=== PATIENT | female | born 1960 | race Caucasian/White ===

== ENCOUNTER 2018-05-22 20:15 | Observation (INO) | payer OTHER ==
[2018-05-22] MEDS ORDERED: diphenhydrAMINE 50 MG/ML 1 ML VIAL IVP STA (20:52)
[2018-05-22] MEDS ORDERED: LORazepam 2 MG/ML INJ IV STA (21:16)
[2018-05-22] MEDS ORDERED: Acetaminophen-Codeine 300-30mg TAB PO STA (21:16)
[2018-05-22 21:19] LABS: Basophils # (A) 0.1 k/uL (0-0.2); Basophils % (A) 1 %; Eosinophils # (A) 0.2 k/uL (0-0.7); Eosinophils % (A) 2 %; HGB 13.8 gm/dL (11.4-16.0); Lymphocytes # (A) 2.4 k/uL (1.0-4.8); Lymphocytes % (A) 30 %; MCH 31.6 pg (25.0-35.0); MCHC 33.7 g/dL (31.0-37.0); MCV 93.7 fL (80.0-100.0); Mean Platelet Volume 6.9; Monocytes # (A) 0.5 k/uL (0-1.0); Monocytes % (A) 6 %; Neutrophils # (A) 4.6 k/uL (1.3-7.7); Neutrophils % (A) 59 %; Platelet Count 255 k/uL (150-450); RBC 4.38 m/uL (3.80-5.40); RDW 12.8 % (11.5-15.5); WBC 7.8 k/uL (3.8-10.6)
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
[2018-05-22 21:32] LABS: Albumin 4.3 g/dL (3.5-5.0); Calcium 9.6 mg/dL (8.4-10.2); Potassium 3.8 mmol/L (3.5-5.1); Total Bilirubin 0.5 mg/dL (0.2-1.3); Total Protein 6.8 g/dL (6.3-8.2)
[2018-05-22 21:36] LABS: Partial Thromboplastin Time 24.6 sec (22.0-30.0); Prothrombin Time 9.8 sec (9.0-12.0)
[2018-05-22 21:49] LABS: Creatine Kinase MB 5.8 ng/mL (0.0-2.4)
[2018-05-22 22:11] LABS: Appearance,Urine Clear (Clear); Bilirubin,Urine Negative (Negative); Blood,Urine Negative (Negative); Color,Urine Yellow; Glucose,Urine (UA) Negative (Negative); Ketones,Urine 2+ (Negative); Leukocyte Esterase,Urine Negative (Negative); Nitrite,Urine Negative (Negative); PH, Urine 5.5 (5.0-8.0); Protein,Urine Trace (Negative); Specific Gravity,Urine 1.025 (1.001-1.035)
[2018-05-22 22:22] LABS: Amphetamine Screen,Urine Not Detected (NotDetected); Barbiturate Screen,Urine Not Detected (NotDetected); Benzodiazepines Screen,Urine Detected (NotDetected); Cocaine Screen,Urine Not Detected (NotDetected); Methadone Screen, Urine Not Detected (NotDetected); Opiate Screen,Urine Not Detected (NotDetected); Oxycodone Screen, Urine Not Detected (NotDetected); Phencyclidine Screen,Urine Not Detected (NotDetected); Tricyclic Antidepressant,Urine Not Detected (NotDetected); Urn Cannabinoid Scrn Detected (NotDetected)
--- NOTE | 2018-05-22 22:28 | CT ---
EXAMINATION TYPE: CT brain wo con DATE OF EXAM: 05/22/2018 COMPARISON: None HISTORY: Anxiety. Headache CT DLP: 1005.9 mGycm Automated exposure control for dose reduction was used. FINDINGS: Ventricles of normal size. There is no mass effect nor midline shift. There is no sign of intracrania l hemorrhage. The calvarium is intact. IMPRESSION: NEGATIVE CT SCAN OF THE BRAIN.
[2018-05-23] MEDS ORDERED: LORazepam 2 MG/ML INJ IV PRN (04:35)
[2018-05-23 09:59] LABS: Creatine Kinase 602 U/L (30-135)
[2018-05-23 10:12] LABS: Troponin I <0.012 ng/mL (0.000-0.034)
[2018-05-23 10:15] LABS: Creatine Kinase MB 4.4 ng/mL (0.0-2.4)
[2018-05-23] MEDS: diphenhydrAMINE 50 MG/ML 1 ML VIAL IVP PRN ×2 (12:09→18:12)
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
--- NOTE | 2018-05-23 12:40 | ECHOF ---
Referral Reason:sob, dizzy MEASUREMENTS -------- HEIGHT: 157.5 cm WEIGHT: 68.0 kg BP: 115/0 RVIDd: 3.0 cm (< 3.3) IVSd: 1.1 cm (0.6 - 1.1) LVIDd: 4.0 cm (3.9 - 5.3) LVPWd: 1.2 cm (0.6 - 1.1) IVSs: 1.3 cm LVIDs: 3.4 cm LVPWs: 0.9 cm LA Diam: 2.8 cm (2.7 - 3.8) LAESV Index (A-L): 25.68 ml/m Ao Diam: 2.7 cm (2.0 - 3.7) AV Cusp: 1.9 cm (1.5 - 2.6) LA Diam: 2.8 cm (2.7 - 3.8) MV EXCURSION: 21.171 mm (> 18.000) MV EF SLOPE: 75 mm/s (70 - 150) EPSS: 0.3 cm MV E Adebayo: 0.61 m/s MV DecT: 266 ms MV A Adebayo: 0.53 m/s MV E/A Ratio: 1.14 RAP: 5.00 mmHg RVSP: 10.99 mmHg FINDINGS -------- Sinus rhythm. This was a technically good study. LV size, wall thickness and systolic function are normal, with an EF greater than 55%. The left sowmya tricular size is normal. The right ventricle is normal in size. The left atrial size is normal. The right atrial size is normal. The aortic valve is trileaflet, and appears structurally normal. No aortic stenosis or regurgitation. The mitral valve is normal. There is trace to mild mitral regurgitation. Trace tricuspid regurgitation present. There is no evidence of pulmonary hypertension. The right ventricular systolic pressure, as measured by Doppler, is 10.99mmHg. There is no pulmonic regurgitation present. The aortic root size is normal. There is no pericardial effusion. CONCLUSIONS -------- 1. Sinus rhythm. 2. LV size, wall thickness and systolic function are normal, with an EF greater than 55%. 3. The left ventricular size is normal. 4. The left atrial size is normal. 5. The aortic valve is trileaflet, and appears structurally normal. No aortic stenosis or regurgitati on. 6. There is trace to mild mitral regurgitation. 7. Trace tricuspid regurgitation present. 8. There is no evidence of pulmonary hypertension. 9. There is no pulmonic regurgitation present. 10. The aortic root size is normal. 11. There is no pericardial effusion. REELING AND TUBING MACHINE OPERATOR: Celina Ellis RDCS
[2018-05-23] MEDS ORDERED: ACETAMINOPHEN TAB 325 MG TAB PO PRN (16:23)
[2018-05-23] MEDS ORDERED: SODIUM CHLORIDE 0.9% 500 ML IV ONE (16:23)
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
[2018-05-23] MEDS: PERMETHRIN 1% CREME RINSE 59 ML LIQUID TOPICAL ONE (18:03)
[2018-05-23] MEDS: ALPRAZolam 0.25 MG TAB PO PRN (18:12)
[2018-05-23] MEDS: SODIUM CHLORIDE 0.9% 1,000 ML IV SCH (18:30)
[2018-05-23] MEDS ORDERED: ALBUTEROL NEBULIZED 2.5 MG/3 ML INHALATION PRN (19:01)
[2018-05-23] MEDS: FAMOTIDINE 20 MG/2 ML VIAL IV SCH (20:30)
[2018-05-23] MEDS: GABAPENTIN 300 MG CAP PO SCH (21:23)
--- NOTE | 2018-05-23 21:31 | XR ---
PROCEDURE: XR shoulder complete LT 3V DATE AND TIME: 05/23/2018 5:40 PM CLINICAL INDICATION: [facility] left shoulder pain after injury TECHNIQUE: Department protocol. 3V COMPARISON: None FINDINGS: There is no fracture or malalignment. The soft tissues are unremarkable. IMPRESSION: NO ACUTE PROCESS.
[2018-05-24] MEDS: ALPRAZolam 0.25 MG TAB PO PRN ×2 (01:04→17:26)
[2018-05-24] MEDS: diphenhydrAMINE 50 MG/ML 1 ML VIAL IVP PRN ×3 (01:04→17:26)
[2018-05-24] MEDS: SODIUM CHLORIDE 0.9% 1,000 ML IV SCH ×2 (01:17→20:01)
[2018-05-24 07:45] LABS: Basophils # (A) 0.1 k/uL (0-0.2); Basophils % (A) 1 %; Eosinophils # (A) 0.4 k/uL (0-0.7); Eosinophils % (A) 6 %; HCT 36.2 % (34.0-46.0); HGB 11.9 gm/dL (11.4-16.0); Lymphocytes # (A) 2.9 k/uL (1.0-4.8); Lymphocytes % (A) 47 %; MCH 31.6 pg (25.0-35.0); MCHC 32.8 g/dL (31.0-37.0); MCV 96.5 fL (80.0-100.0); Mean Platelet Volume 7.4; Monocytes # (A) 0.5 k/uL (0-1.0); Monocytes % (A) 7 %; Neutrophils # (A) 2.2 k/uL (1.3-7.7); Neutrophils % (A) 36 %; Platelet Count 233 k/uL (150-450); RBC 3.75 m/uL (3.80-5.40); RDW 12.8 % (11.5-15.5); WBC 6.2 k/uL (3.8-10.6)
[2018-05-24 08:08] LABS: Calcium 8.6 mg/dL (8.4-10.2); Potassium 4.3 mmol/L (3.5-5.1)
[2018-05-24] MEDS: FAMOTIDINE 20 MG/2 ML VIAL IV SCH (09:00)
[2018-05-24] MEDS: GABAPENTIN 300 MG CAP PO SCH ×3 (09:00→20:54)
[2018-05-24] MEDS: FAMOTIDINE 20 MG TAB PO SCH (20:00)
[2018-05-24] MEDS: PERMETHRIN 1% CREME RINSE 59 ML LIQUID TOPICAL ONE (20:01)
[2018-05-25] MEDS: SODIUM CHLORIDE 0.9% 1,000 ML IV SCH ×2 (00:01→12:23)
[2018-05-25] MEDS: diphenhydrAMINE 50 MG/ML 1 ML VIAL IVP PRN ×2 (00:07→07:56)
[2018-05-25] MEDS: ALPRAZolam 0.25 MG TAB PO PRN ×2 (00:07→07:52)
[2018-05-25 07:15] LABS: Basophils # (A) 0.1 k/uL (0-0.2); Basophils % (A) 1 %; Eosinophils # (A) 0.5 k/uL (0-0.7); Eosinophils % (A) 6 %; HCT 45.6 % (34.0-46.0); HGB 14.2 gm/dL (11.4-16.0); Lymphocytes # (A) 3.2 k/uL (1.0-4.8); Lymphocytes % (A) 41 %; MCH 30.2 pg (25.0-35.0); MCHC 31.2 g/dL (31.0-37.0); MCV 96.8 fL (80.0-100.0); Mean Platelet Volume 7.3; Monocytes # (A) 0.5 k/uL (0-1.0); Monocytes % (A) 6 %; Neutrophils # (A) 3.4 k/uL (1.3-7.7); Neutrophils % (A) 44 %; Platelet Count 280 k/uL (150-450); RBC 4.71 m/uL (3.80-5.40); WBC 7.7 k/uL (3.8-10.6)
[2018-05-25 07:31] LABS: Calcium 9.9 mg/dL (8.4-10.2); Potassium 4.8 mmol/L (3.5-5.1)
[2018-05-25] MEDS: GABAPENTIN 300 MG CAP PO SCH (07:52)
[2018-05-25] MEDS: FAMOTIDINE 20 MG TAB PO SCH (07:52)
[2018-05-25 16:06] VITALS: BP 138/77; PULSE 58; RESP 16; TEMP 97.6
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
== END 2018-05-25 16:45 | disposition home or self-care (01) ==
LOC: EC 20:15 → 3OBS 23:29
PROVIDERS: ADMIT Hospitalist; ATTEND Hospitalist
DX: R55 Syncope and collapse (principal); R79.89 Other specified abnormal findings of blood chemistry; M79.7 Fibromyalgia; K21.9 Gastro-esophageal reflux disease without esophagitis; M25.512 Pain in left shoulder; R51 Headache; E86.0 Dehydration; R11.10 Vomiting, unspecified; R07.89 Other chest pain; F12.10 Cannabis abuse, uncomplicated; R29.6 Repeated falls; F13.10 Sedative, hypnotic or anxiolytic abuse, uncomplicated; R21 Rash and other nonspecific skin eruption; R42 Dizziness and giddiness; R06.02 Shortness of breath; M19.90 Unspecified osteoarthritis, unspecified site; Z87.01 Personal history of pneumonia (recurrent); F43.10 Post-traumatic stress disorder, unspecified; F41.0 Panic disorder [episodic paroxysmal anxiety]; F32.9 Major depressive disorder, single episode, unspecified; G62.9 Polyneuropathy, unspecified; M54.41 Lumbago with sciatica, right side; M65.30 Trigger finger, unspecified finger; F17.200 Nicotine dependence, unspecified, uncomplicated; Z88.0 Allergy status to penicillin; Z91.030 Bee allergy status; E66.9 Obesity, unspecified; Z68.27 Body mass index [BMI] 27.0-27.9, adult; Y04.2XXA Assault by strike against or bumped into by another person, initial encounter; Z79.82 Long term (current) use of aspirin; Z79.899 Other long term (current) drug therapy
CPT/HCPCS: 99285 ×2; 96374 ×2; 96375 ×3; 96376 ×3; 36415; 94640; 93005; 93306; 97162; 97165; 85379; 80053; 80048 ×2; 82550 ×2; 82553 ×2; 84484 ×2; 85025 ×3; 85610; 85730; 81003; 80306; 73030; 70450; G0378 ×4; J2060 ×2; J1200 ×4

== ENCOUNTER 2018-05-26 18:26 | Emergency (ER) | payer OTHER ==
[2018-05-26 18:35] VITALS: RESP 18
[2018-05-26] MEDS ORDERED: KETOROLAC 30 MG/ML 1 ML VIAL IVP STA (19:15)
[2018-05-26] MEDS ORDERED: diphenhydrAMINE 50 MG/ML 1 ML VIAL IVP STA (19:15)
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
[2018-05-26 20:36] VITALS: BP 114/63; PULSE 65; TEMP 98.6
== END 2018-05-26 20:33 | disposition home or self-care (01) ==
LOC: EC 18:26
DX: L57.8 Other skin changes due to chronic exposure to nonionizing radiation (principal); M54.9 Dorsalgia, unspecified; F41.9 Anxiety disorder, unspecified; M79.7 Fibromyalgia; K21.9 Gastro-esophageal reflux disease without esophagitis; M19.90 Unspecified osteoarthritis, unspecified site; G62.9 Polyneuropathy, unspecified; F32.9 Major depressive disorder, single episode, unspecified; F43.10 Post-traumatic stress disorder, unspecified; F17.200 Nicotine dependence, unspecified, uncomplicated; Z79.1 Long term (current) use of non-steroidal anti-inflammatories (NSAID); Z79.82 Long term (current) use of aspirin; Z79.899 Other long term (current) drug therapy; Z88.0 Allergy status to penicillin; Z91.030 Bee allergy status; X32.XXXA Exposure to sunlight, initial encounter
CPT/HCPCS: 99283; 96374; 96375; J1200; J1885

== ENCOUNTER 2018-06-03 15:43 | Emergency (ER) | payer OTHER ==
[2018-06-03 15:51] VITALS: BP 116/68; PULSE 78; RESP 20
--- NOTE | 2018-06-03 16:29 | ED ---
Lower Extremity Injury HPI - General Chief Complaint: Extremity Injury, Lower Stated Complaint: Knee Pain Time Seen by Provider: 06/03/18 15:52 Source: patient, RN notes reviewed Mode of arrival: EMS Limitations: no limitations - History of Present Illness Initial Comments: This is a 58-year-old female who presents to the emergency department with chief complaint of left knee pain. Patient reports falling onto the left knee a couple of days ago. She states that she does walk a lot throughout the day and is now experiencing left knee pain with walking. She denies any other injuries or trauma. Denies any previous injuries to the left knee. Denies recent fevers or chills, chest pain shortness of breath, abdominal pain, nausea or vomiting, numbness or tingling. - Related Data Home Medications Medication Instructions Recorded Confirmed Albuterol Inhaler [Ventolin Hfa 2 puff INHALATION RT-Q6H PRN 05/23/18 05/23/18 Inhaler] Aspirin EC [Ecotrin Low Dose] 81 mg PO DAILY 05/23/18 05/23/18 Cholecalciferol [Vitamin D3] 5,000 unit PO DAILY 05/23/18 05/23/18 Diazepam 10 mg PO BID PRN 05/23/18 05/23/18 Gabapentin [Neurontin] 300 mg PO TID 05/23/18 05/23/18 Hydrocortisone Cream 1 applic TOPICAL BID PRN 05/23/18 05/23/18 [Hydrocortisone 2.5% Cream] Ibuprofen [Motrin] 800 mg PO TID PRN 05/23/18 05/23/18 Loratadine 10 mg PO DAILY 05/23/18 05/23/18 Meloxicam 15 mg PO DAILY 05/23/18 05/23/18 Omeprazole [PriLOSEC] 20 mg PO AC-BID 05/23/18 05/23/18 Venlafaxine HCl ER [Effexor XR] 75 mg PO DAILY 05/23/18 05/23/18 Allergies Allergy/AdvReac Type Severity Reaction Status Date / Time amoxicillin Allergy Rash/Hives Verified 06/03/18 15:50 bee venom protein (honey bee) Allergy Anaphylaxis Verified 06/03/18 15:50 Penicillins Allergy Rash/Hives Verified 06/03/18 15:50 Review of Systems ROS Statement: Those systems with pertinent positive or pertinent negative responses have been documented in the HPI. ROS Other: All systems not noted in ROS Statement are negative. Past Medical History Past Medical History: Fibromyalgia, GERD/Reflux, Osteoarthritis (OA), Pneumonia , Syncope Additional Past Medical History / Comment(s): Hypotension, syncopal episodes, severe facial neuropathy, neuropathy bilateral legs/feet, mid to low back pain with right sided sciatica, scoliosis, R foot neuroma, trigger fingers. History of Any Multi-Drug Resistant Organisms: None Reported Past Surgical History: Hysterectomy, Tubal Ligation Additional Past Surgical History / Comment(s): left ankle fracture with surgical repair-pt unsure if any hardware, 6 foot surgeries- bunionectomies and R foot neuroma removals Past Anesthesia/Blood Transfusion Reactions: No Reported Reaction, Motion Sickness Past Psychological History: Anxiety, Depression, Panic Disorder, PTSD Smoking Status: Current every day smoker Past Alcohol Use History: None Reported Past Drug Use History: None Reported - Past Family History Father History Unknown: Yes Additional Family Medical History / Comment(s): Father when pt was 4 yrs old. Mother Additional Family Medical History / Comment(s): Mother is . She had neuropathy and headaches. General Exam - General Exam Comments Initial Comments: General: Awake and alert, well-developed; in no apparent distress. Upon entering the room, patient is standing at the counter on her cell phone. She is ambulating normally. HEENT: Head atraumatic, normocephalic. Pupils are equal, round and reactive to light. Extraocular movements intact. Oropharynx moist without erythema or exudate. Neck: Supple. Normal ROM. Cardiovascular: Regular rate and rhythm. No murmurs, rubs or gallops. Chest symmetrical. Respiratory: Lungs clear to auscultation bilaterally. No wheezes, rales or rhonchi. Normal respiratory effort with no use of accessory muscles. Musculoskeletal: Normal range of motion of the left knee. No tenderness or laxity is noted. No swelling, erythema, ecchymosis. No obvious gross deformities. Patient is bearing weight and ambulating normally. Sensation is intact. Pedal pulses are 2+ equal and palpable bilaterally. Skin: [place], warm and dry without rashes or lesions. Neurological: Alert and oriented x3. CN II-XII grossly intact. Speech is fluent and answers are appropriate. No focal neuro deficits. Psychiatric: Normal mood and affect. No overt signs of depression or anxiety noted. Limitations: no limitations Course Vital Signs 06/03/18 15:47 Temperature 100 F H Pulse Rate 78 Respiratory 20 Rate Blood Pressure 116/68 O2 Sat by Pulse 97 Oximetry Medical Decision Making - Medical Decision Making This is a 58-year-old female who presents to the emergency department with chief complaint of left knee pain. Patient reports falling on her knee and is now experiencing pain with walking. Patient is bearing weight and ambulating in the emergency Department room throughout her stay. She has normal range of motion, no tenderness, no laxity, no erythema or swelling of the left knee. She is neurovascularly intact. X-ray of the left knee revealed mild soft tissue swelling without evidence for an acute abnormalities. Recommend rest, ice, elevation and ibuprofen or Tylenol as needed. She'll be discharged home at time. She is in agreement and voices understanding. All questions were answered. Patient is in no acute distress. - Radiology Data Radiology results: report reviewed X-ray left knee impression: Mild soft tissue swelling. No fracture. Disposition Clinical Impression: Contusion of left knee Disposition: HOME SELF-CARE Condition: Good Instructions: Knee Pain (ED), R.I.C.E. Treatment (ED) Additional Instructions: Please follow up with primary care provider within 1-2 days. Return to emergency department if symptoms should worsen or any concerns arise. Is patient prescribed a controlled substance at d/c from ED?: No Referrals: Nonstaff,Physician [REFERRING] - 1-2 days Time of Disposition: 16:34
--- NOTE | 2018-06-03 16:31 | XR ---
EXAMINATION TYPE: XR knee complete LT DATE OF EXAM: 06/03/2018 COMPARISON: NONE HISTORY: Knee pain TECHNIQUE: 3 views FINDINGS: I see no fracture nor dislocation. There is mild anterior soft tissue swelling. There is no sign of joint effusion. Joint spaces are fairly normal. IMPRESSION: Mild soft tissue swelling. No fracture.
[2018-06-03 16:45] VITALS: TEMP 99.7
== END 2018-06-03 16:44 | disposition home or self-care (01) ==
LOC: EC 15:43
DX: S80.02XA Contusion of left knee, initial encounter (principal); K21.9 Gastro-esophageal reflux disease without esophagitis; M19.90 Unspecified osteoarthritis, unspecified site; F41.9 Anxiety disorder, unspecified; F32.9 Major depressive disorder, single episode, unspecified; F17.200 Nicotine dependence, unspecified, uncomplicated; Z79.82 Long term (current) use of aspirin; Z79.1 Long term (current) use of non-steroidal anti-inflammatories (NSAID); Z79.899 Other long term (current) drug therapy; Z88.0 Allergy status to penicillin; Z91.030 Bee allergy status; W19.XXXA Unspecified fall, initial encounter; Y93.01 Activity, walking, marching and hiking
CPT/HCPCS: 99283

== ENCOUNTER 2018-06-15 15:18 | Emergency (ER) | payer OTHER ==
[2018-06-15 15:23] VITALS: BP 118/69; RESP 18; TEMP 98.1
[2018-06-15] MEDS ORDERED: predniSONE 20 MG TAB PO STA (15:34)
[2018-06-15] MEDS ORDERED: IPRATROPIUM-ALBUTEROL 3 ML NEB INHALATION STA (15:34)
[2018-06-15] MEDS ORDERED: IBUPROFEN 800 MG TAB PO STA (15:34)
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
[2018-06-15 15:55] VITALS: PULSE 65
--- NOTE | 2018-06-15 15:59 | XR ---
EXAMINATION TYPE: XR chest 2V DATE OF EXAM: 06/15/2018 COMPARISON: NONE HISTORY: Cough and congestion TECHNIQUE: Frontal and lateral views of the chest are obtained. FINDINGS: Heart and mediastinum are normal. Lungs are clear. Diaphragm is normal. Bony thorax is int act. IMPRESSION: Normal chest
== END 2018-06-15 16:47 | disposition home or self-care (01) ==
LOC: EC 15:18
DX: J40 Bronchitis, not specified as acute or chronic (principal); G51.9 Disorder of facial nerve, unspecified; G57.93 Unspecified mononeuropathy of bilateral lower limbs; K21.9 Gastro-esophageal reflux disease without esophagitis; F41.0 Panic disorder [episodic paroxysmal anxiety]; F32.9 Major depressive disorder, single episode, unspecified; F17.210 Nicotine dependence, cigarettes, uncomplicated; Z88.0 Allergy status to penicillin; Z91.030 Bee allergy status; Z79.82 Long term (current) use of aspirin; Z79.1 Long term (current) use of non-steroidal anti-inflammatories (NSAID); Z79.899 Other long term (current) drug therapy
CPT/HCPCS: 94640; 93005; 71046; 99284; J7512

== ENCOUNTER 2018-11-25 19:08 | Emergency (ER) | payer OTHER ==
[2018-11-25 19:17] VITALS: RESP 18
[2018-11-25] MEDS ORDERED: HYDROcodone/APAP 5-325MG 1 EACH TAB PO STA (19:34)
--- NOTE | 2018-11-25 20:03 | ED ---
General Adult HPI - General Chief complaint: Fall Stated complaint: FALL Time Seen by Provider: 11/25/18 19:19 Source: patient, EMS, RN notes reviewed Mode of arrival: ambulatory Limitations: no limitations - History of Present Illness Initial comments: Chief complaint history of present illness a 58-year-old female brought emergency room by ambulance. The patient reports she's moved into a new home. At approximately 4:30 PM she while cleaning windows she stepped backwards and because she was unfamiliar with the steps and fell. She bumped the right occipitoparietal area. Also complains discomfort with abrasion to her right tib -fib anterior surface. Patient denies any loss of consciousness, no nausea no vomiting. Denies any neck pain. Patient is not on blood thinners other than occasional aspirin. - Related Data Home Medications Medication Instructions Recorded Confirmed Albuterol Inhaler [Ventolin Hfa 2 puff INHALATION RT-Q6H PRN 05/23/18 11/25/18 Inhaler] Aspirin EC [Ecotrin Low Dose] 81 mg PO DAILY 05/23/18 11/25/18 Gabapentin [Neurontin] 300 mg PO TID 05/23/18 11/25/18 Loratadine 10 mg PO DAILY 05/23/18 11/25/18 Meloxicam 15 mg PO DAILY 05/23/18 11/25/18 Omeprazole [PriLOSEC] 20 mg PO AC-BID 05/23/18 11/25/18 Venlafaxine HCl ER [Effexor XR] 75 mg PO DAILY 05/23/18 11/25/18 Allergies Allergy/AdvReac Type Severity Reaction Status Date / Time amoxicillin Allergy Rash/Hives Verified 11/25/18 19:46 bee venom protein (honey bee) Allergy Anaphylaxis Verified 11/25/18 19:46 Penicillins Allergy Rash/Hives Verified 11/25/18 19:46 Review of Systems ROS Statement: Those systems with pertinent positive or pertinent negative responses have been documented in the HPI. Review of systems. Patient has a bump to the right occipitoparietal region. No complaint of neck ache or neck pain. No visual acuity changes. Jaw intact. No discomfort to her shoulders. Full range of motion upper extremities. Good sales assistants and salespersons. No complaint of any numbness or tingling. No chest pain shortness of breath. No complaint of any neuro deficits. Examination of the right leg shows ecchymosis and abrasion on the anterior tibial surface just distal to the knee. No hip pain. Neurovascular status feet are intact. Past medical problems significant for fibromyalgia, GERD, osteoarthritis, pneumonia, syncope secondary to hypotension in the past. Surgeries include hysterectomy, preceded by tubal ligation, previous left ankle fracture without any hardware. She's also had bunions and toe surgery. Family history Brother had colon cancer. Patient was advised that she to should have a colonoscopy as a runs of the family's. She states she understands this and will do this with her new doctor. Patient has ALLERGIES to penicillin, be venom. Patient does smoke strongly encouraged to stop denies alcohol use. ROS Other: All systems not noted in ROS Statement are negative. Past Medical History Past Medical History: Fibromyalgia, GERD/Reflux, Osteoarthritis (OA), Pneumonia , Syncope Additional Past Medical History / Comment(s): Hypotension, syncopal episodes, severe facial neuropathy, neuropathy bilateral legs/feet, mid to low back pain with right sided sciatica, scoliosis, R foot neuroma, trigger fingers. History of Any Multi-Drug Resistant Organisms: None Reported Past Surgical History: Hysterectomy, Tubal Ligation Additional Past Surgical History / Comment(s): left ankle fracture with surgical repair-pt unsure if any hardware, 6 foot surgeries- bunionectomies and R foot neuroma removals Past Anesthesia/Blood Transfusion Reactions: No Reported Reaction, Motion Sickness Past Psychological History: Anxiety, Depression, Panic Disorder, PTSD Smoking Status: Current every day smoker Past Alcohol Use History: None Reported Past Drug Use History: None Reported - Past Family History Father History Unknown: Yes Additional Family Medical History / Comment(s): Father when pt was 4 yrs old. Mother Additional Family Medical History / Comment(s): Mother is . She had neuropathy and headaches. General Exam - General Exam Comments Initial Comments: General: The patient is awake and alert, brought emergency room by ambulance. Patient reports she fell 4:30 at home. At approximately 6:30 she called EMS with the pain. She ambulated on the injured leg afterwards. She also presents with large hematoma to the right occipitoparietal region. Denies any loss of consciousness. The patient's vital signs show temperature 98.0 pulse of 68 respiratory rate 18 pulse ox 99% room air blood pressure 135/83. Eye: Pupils are equal, round and reactive to light, extra-ocular movements are intact ; there is normal conjunctiva bilaterally. No signs of icterus. Ears, nose, mouth and throat: There are moist mucous membranes and no oral lesions. Neck: The neck is supple, there is no tenderness.. Cardiovascular: There is a regular rate and rhythm. No murmur, rub or gallop is appreciated. Respiratory: Lungs are clear to auscultation, respirations are non-labored, breath sounds are equal. No wheezes, stridor, rales, or rhonchi. Gastrointestinal: Soft, non-distended, non-tender abdomen without masses or organomegaly noted. There is no rebound or guarding present. No CVA tenderness. Bowel sounds are unremarkable. Back: There is no tenderness to palpation in the midline. There is no obvious deformity. No rashes noted. Denies any back pain. Musculoskeletal: Full range of upper extremities. Neurovascular status to hands intact. Neurologically grossly intact no focal or lateralizing findings. Examination of the right leg finds a deep abrasion with large area of ecchymosis on the anterior tibial surface proximal one third of the right lower extremity. Neurovascular status is intact. This was cleaned and covered with bacitracin and a comfortable bandage. Patient was told to wash this daily apply bacitracin. Patient is refusing a tetanus shot. Neurological: No neuro deficits Skin: Deep abrasion anterior surface right tib-fib. Psychiatric: Cooperative, Limitations: no limitations Course Vital Signs 11/25/18 19:13 Temperature 98.0 F Pulse Rate 58 L Respiratory 18 Rate Blood Pressure 135/83 O2 Sat by Pulse 99 Oximetry Medical Decision Making - Medical Decision Making Medical decision making; patient's refusing a tetanus shot. This is a 58-year-old female who lives in a new home and she states that while cleaning a window she fell while slipping on stairs she was not familiar with. Bumping her head. Denies loss of consciousness. Denies neck pain. She does have a deep abrasion over the right anterior tibial surface. CT the brain was done reviewed radiologist his impression is that there is a large right occipitoparietal hematoma. No acute intracranial abnormalities. Radiologist reports that the cervical spine showed some spondylotic changes but no fracture. As read by Dr. Nugent The patient wound on her right tib-fib was cleaned. Told to apply topical bacitracin and wash daily. Ice to help decrease inflammation. Also ice on her scalp hematoma. Advised to return emergency room if there are difficulties or problems otherwise follow-up with family physician for any problems. Disposition Clinical Impression: Fall, Hematoma of scalp, Abrasion, leg w/o infection Disposition: HOME SELF-CARE Condition: Fair Additional Instructions: Clean the wound on your right leg daily. Apply topical bacitracin and bandage. Apply ice to the area for the next 1-2 days. Apply ice to the bump on her head. Take Tylenol or ibuprofen for discomfort. Follow-up with your family physician. Is patient prescribed a controlled substance at d/c from ED?: No Referrals: Nonstaff,Physician [REFERRING] - 1-2 days Time of Disposition: 20:51
--- NOTE | 2018-11-25 20:31 | CT ---
EXAMINATION TYPE: CT brain maame rush DATE OF EXAM: 11/25/2018 COMPARISON: CT brain 05/22/2018 HISTORY: fall CT DLP: 1350 mGycm Automated exposure control for dose reduction was used. TECHNIQUE: CT scan of the head and cervical spine are performed without contrast. FINDINGS: Ventricles of normal size. There is no mass effect nor midline shift. There is no sign of intracranial hemorrhage. The calvarium is intact. There is large right parietal scalp hematoma. I se e no skull fracture. There is straightening of the cervical spine. There is degenerative disc space narrowing at C5-6 C6-7 . There is slight kyphotic curvature. The posterior elements are intact and there is mild hypertrophi c facet arthropathy. The skull base is intact. IMPRESSION: No acute intracranial abnormality. Large right parietal occipital scalp hematoma. Brain unchanged. Spondylotic changes in the cervical spine with straightening. No fracture seen.
--- NOTE | 2018-11-25 20:42 | XR ---
Right tibia and fibula 4 views. History pain. Comparison none. FINDINGS: There is soft tissue swelling anterior to the proximal tibia. There is some small air bubbles that co uld relate to laceration. I see no fracture nor dislocation. There is mild spurring at the knee joint . Ankle mortise is anatomic. IMPRESSION: Soft tissue swelling. No fracture.
[2018-11-25 21:21] VITALS: BP 123/74; PULSE 62; TEMP 97.9
== END 2018-11-25 21:21 | disposition home or self-care (01) ==
LOC: EC 19:08
DX: S00.03XA Contusion of scalp, initial encounter (principal); S80.811A Abrasion, right lower leg, initial encounter; M79.7 Fibromyalgia; K21.9 Gastro-esophageal reflux disease without esophagitis; M19.90 Unspecified osteoarthritis, unspecified site; G62.9 Polyneuropathy, unspecified; F32.9 Major depressive disorder, single episode, unspecified; F41.0 Panic disorder [episodic paroxysmal anxiety]; F43.10 Post-traumatic stress disorder, unspecified; F17.200 Nicotine dependence, unspecified, uncomplicated; Z79.82 Long term (current) use of aspirin; Z79.1 Long term (current) use of non-steroidal anti-inflammatories (NSAID); Z79.899 Other long term (current) drug therapy; Z88.0 Allergy status to penicillin; Z91.030 Bee allergy status; W10.9XXA Fall (on) (from) unspecified stairs and steps, initial encounter; Y92.89 Other specified places as the place of occurrence of the external cause; Z53.29 Procedure and treatment not carried out because of patient's decision for other reasons
CPT/HCPCS: 70450; 72125; 99284

== ENCOUNTER 2018-12-23 11:12 | Emergency (ER) | payer OTHER ==
[2018-12-23] MEDS ORDERED: MORPHINE SULFATE 4 MG/ML SYRINGE IVP STA (12:36)
[2018-12-23] MEDS ORDERED: ONDANSETRON 4 MG/2 ML VIAL IVP STA (12:37)
[2018-12-23] MEDS ORDERED: KETOROLAC 30 MG/ML 1 ML VIAL IVP STA (12:37)
[2018-12-23 13:17] LABS: Basophils # (A) 0.1 k/uL (0-0.2); Basophils % (A) 1 %; Eosinophils # (A) 0.3 k/uL (0-0.7); Eosinophils % (A) 2 %; HGB 14.5 gm/dL (11.4-16.0); Lymphocytes # (A) 2.6 k/uL (1.0-4.8); Lymphocytes % (A) 25 %; MCH 30.6 pg (25.0-35.0); MCHC 32.3 g/dL (31.0-37.0); MCV 94.8 fL (80.0-100.0); Mean Platelet Volume 7.1; Monocytes # (A) 0.6 k/uL (0-1.0); Monocytes % (A) 6 %; Neutrophils # (A) 6.9 k/uL (1.3-7.7); Neutrophils % (A) 65 %; Platelet Count 281 k/uL (150-450); RBC 4.74 m/uL (3.80-5.40); RDW 12.9 % (11.5-15.5); WBC 10.6 k/uL (3.8-10.6)
[2018-12-23] MEDS ORDERED: ceFAZolin IN SWFI 2 GM/20 ML SYRINGE IVP ONE (13:18)
--- NOTE | 2018-12-23 13:18 | XR ---
EXAMINATION TYPE: XR tibia fibula RT DATE OF EXAM: 12/23/2018 COMPARISON: 11/25/2018 HISTORY: Fall one month ago nonhealing wound TECHNIQUE: 2 view right tibia and fibula FINDINGS: No acute fractures or dislocations are evident. Joint spaces appear preserved as visualized There is soft tissue abnormality along the anterior superior patellar region. Underlying abscess is n ot identified. No radiopaque foreign body is evident. Soft tissue swelling at this region is diminish ed over the interval. IMPRESSION: 1. Soft tissue injury along the anterior superior davis. 2. No suspicious osseous abnormality
--- NOTE | 2018-12-23 13:20 | ED ---
Wound/Laceration HPI - General Chief Complaint: Wound/Laceration Stated Complaint: poss infected wound Time Seen by Provider: 12/23/18 11:59 Source: patient, RN notes reviewed, old records reviewed Mode of arrival: wheelchair Limitations: no limitations - History of Present Illness Initial Comments: Patient is a 58-year-old female who presents emergency department today with wound of her right anterior lower leg. Patient states that she fell one month ago. Since that time she has some pus and drainage from her leg. She states she has some surrounding erythema or skin changes and a deep wound. Patient states that she's not a diabetic. Does not see wound care. She is not seen her PCP. - Related Data Home Medications Medication Instructions Recorded Confirmed Albuterol Inhaler [Ventolin Hfa 2 puff INHALATION RT-Q6H PRN 05/23/18 12/23/18 Inhaler] Aspirin EC [Ecotrin Low Dose] 81 mg PO DAILY 05/23/18 12/23/18 Gabapentin [Neurontin] 300 mg PO TID 05/23/18 12/23/18 Loratadine 10 mg PO DAILY 05/23/18 12/23/18 Meloxicam 15 mg PO DAILY 05/23/18 12/23/18 Omeprazole [PriLOSEC] 20 mg PO AC-BID 05/23/18 12/23/18 Venlafaxine HCl ER [Effexor XR] 75 mg PO DAILY 05/23/18 12/23/18 Cholecalciferol [Vitamin D3] 5,000 unit PO DAILY 12/23/18 12/23/18 Previous Rx's Medication Instructions Recorded Ibuprofen [Motrin] 600 mg PO Q6HR PRN #20 tab 11/25/18 Cephalexin [Keflex] 500 mg PO Q6HR #40 cap 12/23/18 Cephalexin [Keflex] 500 mg PO Q6HR 40 Days 12/23/18 Gabapentin [Neurontin] 300 mg PO TID #21 cap 12/23/18 Ibuprofen 600 mg PO TID #30 tablet 12/23/18 Meloxicam 15 mg PO DAILY #10 tablet 12/23/18 Sulfamethox-Tmp 800-160Mg [Bactrim 2 tab PO Q12HR #40 tab 12/23/18 DS 800-160 mg] Venlafaxine HCl ER [Effexor XR] 75 mg PO DAILY #7 cap 12/23/18 Allergies Allergy/AdvReac Type Severity Reaction Status Date / Time amoxicillin Allergy Rash/Hives Verified 12/23/18 11:54 bee venom protein (honey bee) Allergy Anaphylaxis Verified 12/23/18 11:54 Penicillins Allergy Rash/Hives Verified 12/23/18 11:54 Review of Systems ROS Statement: Those systems with pertinent positive or pertinent negative responses have been documented in the HPI. ROS Other: All systems not noted in ROS Statement are negative. Past Medical History Past Medical History: Fibromyalgia, GERD/Reflux, Osteoarthritis (OA), Pneumonia, Syncope Additional Past Medical History / Comment(s): Hypotension, syncopal episodes, severe facial neuropathy, neuropathy bilateral legs/feet, mid to low back pain with right sided sciatica, scoliosis, R foot neuroma, trigger fingers. History of Any Multi-Drug Resistant Organisms: None Reported Past Surgical History: Hysterectomy, Tubal Ligation Additional Past Surgical History / Comment(s): left ankle fracture with surgical repair-pt unsure if any hardware, 6 foot surgeries- bunionectomies and R foot neuroma removals Past Anesthesia/Blood Transfusion Reactions: No Reported Reaction, Motion Sickness Past Psychological History: Anxiety, Depression, Panic Disorder, PTSD Smoking Status: Current every day smoker Past Alcohol Use History: None Reported Past Drug Use History: None Reported - Past Family History Father History Unknown: Yes Additional Family Medical History / Comment(s): Father when pt was 4 yrs old. Mother Additional Family Medical History / Comment(s): Mother is . She had neuropathy and headaches. General Exam - General Exam Comments Initial Comments: 58-year-old female. Alert and oriented. Patient appears in no acute distress. Limitations: no limitations Head exam: Present: atraumatic, normocephalic, normal inspection Eye exam: Present: normal appearance ENT exam: Present: normal exam, mucous membranes moist Neck exam: Present: normal inspection. Absent: tenderness, meningismus, lymphadenopathy Respiratory exam: Present: normal lung sounds bilaterally. Absent: respiratory distress, wheezes, rales, rhonchi, stridor Cardiovascular Exam: Present: regular rate, normal rhythm, normal heart sounds. Absent: systolic murmur, diastolic murmur, rubs, gallop, clicks GI/Abdominal exam: Present: soft, normal bowel sounds. Absent: distended, tenderness, guarding, rebound, rigid Extremities exam: Present: full ROM, normal capillary refill. Absent: normal inspection, tenderness, pedal edema, joint swelling, calf tenderness Right Knee exam: Present: normal inspection, full ROM Lower Leg exam: Present: full ROM, tenderness, swelling (Patient has some erythematous changes surrounding a deep 2 cm x 3 similar deep wound over the superior aspect of the right lower leg.) Ankle exam: Present: normal inspection, full ROM Foot/Toe exam: Present: normal inspection, full ROM Back exam: Present: normal inspection Course Vital Signs 12/23/18 12/23/18 11:15 14:40 Temperature 98.6 F 97.6 F Pulse Rate 56 L 64 Respiratory 18 16 Rate Blood Pressure 116/68 119/64 O2 Sat by Pulse 98 98 Oximetry - Reevaluation(s) Reevaluation #1: 12/23/18 15:43 Discharge Patient stated that she needed to have some for her medications refilled that she is out of and she does have an appointment until January 04. I discussed I'll refill some of her medications for one week. Given prescription for venlafaxine and meloxicam. Medical Decision Making - Medical Decision Making 58 year old with complaint of R leg wound. She as a deep 3cm open wound with surrounding cellultis related to a fall 1 month ago. Labs and vitals were normal. She was given 2g kefzol. Disucssed patient needs to see wound care and PCP. Will DC with Rx for bactrim and keflex. Patient also request med refill of her usual meds. Rx sent via escript. - Lab Data Result diagrams: 12/23/18 12:35 12/23/18 12:35 Lab Results 12/23/18 12/23/18 12/23/18 Range/Units 12:35 12:35 12:35 WBC 10.6 (3.8-10.6) k/uL RBC 4.74 (3.80-5.40) m/uL Hgb 14.5 (11.4-16.0) gm/dL Hct 45.0 (34.0-46.0) % MCV 94.8 (80.0-100.0) fL MCH 30.6 (25.0-35.0) pg MCHC 32.3 (31.0-37.0) g/dL RDW 12.9 (11.5-15.5) % Plt Count 281 (150-450) k/uL Neutrophils % 65 % Lymphocytes % 25 % Monocytes % 6 % Eosinophils % 2 % Basophils % 1 % Neutrophils # 6.9 (1.3-7.7) k/uL Lymphocytes # 2.6 (1.0-4.8) k/uL Monocytes # 0.6 (0-1.0) k/uL Eosinophils # 0.3 (0-0.7) k/uL Basophils # 0.1 (0-0.2) k/uL Sodium 140 (137-145) mmol/L Potassium 4.9 (3.5-5.1) mmol/L Chloride 109 H (98-107) mmol/L Carbon Dioxide 24 (22-30) mmol/L Anion Gap 7 mmol/L BUN 13 (7-17) mg/dL Creatinine 0.78 (0.52-1.04) mg/dL Est GFR (CKD-EPI)AfAm >90 (>60 ml/min/1.73 sqM) Est GFR (CKD-EPI)NonAf 84 (>60 ml/min/1.73 sqM) Glucose 83 (74-99) mg/dL Plasma Lactic Acid Sergey 0.8 (0.7-2.0) mmol/L Calcium 10.1 (8.4-10.2) mg/dL Total Bilirubin 0.7 (0.2-1.3) mg/dL AST 30 (14-36) U/L ALT 22 (9-52) U/L Alkaline Phosphatase 67 (38-126) U/L Total Protein 7.3 (6.3-8.2) g/dL Albumin 4.5 (3.5-5.0) g/dL - Radiology Data Radiology results: report reviewed Soft tissue injury to the anterior superior davis. No suspicious osseous normality. Disposition Clinical Impression: Leg wound, right, Cellulitis, Medication refill Disposition: HOME SELF-CARE Condition: Good Instructions (If sedation given, give patient instructions): Wound Infection (ED) Additional Instructions: Patient advised to have close follow-up with primary care physician. Keep the wound covered with dressing and packing. Patient should follow-up with wound care clinic and the numbers that were given to. Take antibiotics as prescribed. Prescriptions: Sulfamethox-Tmp 800-160Mg [Bactrim DS 800-160 mg] 2 tab PO Q12HR #40 tab Venlafaxine HCl ER [Effexor XR] 75 mg PO DAILY #7 cap Ibuprofen 600 mg PO TID #30 tablet Cephalexin [Keflex] 500 mg PO Q6HR 40 Days Cephalexin [Keflex] 500 mg PO Q6HR #40 cap Meloxicam 15 mg PO DAILY #10 tablet Gabapentin [Neurontin] 300 mg PO TID #21 cap Is patient prescribed a controlled substance at d/c from ED?: No Referrals: Holley Tafoya MD [Primary Care Provider] - 1-2 days Cooper Ordoñez MD [STAFF PHYSICIAN] - 1-2 days Agustin Ingram MD [STAFF PHYSICIAN] - 1-2 days Time of Disposition: 14:10
[2018-12-23 13:21] LABS: ALT 22 U/L (9-52); AST 30 U/L (14-36); Albumin 4.5 g/dL (3.5-5.0); Alkaline Phosphatase 67 U/L (38-126); Anion Gap 7 mmol/L; Blood Urea Nitrogen 13 mg/dL (7-17); Calcium 10.1 mg/dL (8.4-10.2); Carbon Dioxide 24 mmol/L (22-30); Chloride 109 mmol/L (98-107); Glucose 83 mg/dL (74-99); Sodium 140 mmol/L (137-145); Total Bilirubin 0.7 mg/dL (0.2-1.3); Total Protein 7.3 g/dL (6.3-8.2)
[2018-12-23 13:23] LABS: Potassium 4.9 mmol/L (3.5-5.1)
[2018-12-23] MEDS ORDERED: traMADol 50 MG STARTER PACK 3 TAB BTL PO STA (14:36)
[2018-12-23 14:41] VITALS: BP 119/64; PULSE 64; RESP 16; TEMP 97.6
== END 2018-12-23 14:41 | disposition home or self-care (01) ==
LOC: EC 11:12
DX: S81.801A Unspecified open wound, right lower leg, initial encounter (principal); L03.115 Cellulitis of right lower limb; Z76.0 Encounter for issue of repeat prescription; K21.9 Gastro-esophageal reflux disease without esophagitis; M79.7 Fibromyalgia; M19.90 Unspecified osteoarthritis, unspecified site; F32.9 Major depressive disorder, single episode, unspecified; G62.9 Polyneuropathy, unspecified; F41.0 Panic disorder [episodic paroxysmal anxiety]; F17.200 Nicotine dependence, unspecified, uncomplicated; Z79.899 Other long term (current) drug therapy; Z79.82 Long term (current) use of aspirin; Z88.0 Allergy status to penicillin; Z91.030 Bee allergy status; Z87.01 Personal history of pneumonia (recurrent); Z98.51 Tubal ligation status; W18.30XA Fall on same level, unspecified, initial encounter
CPT/HCPCS: 36415; 80053; 83605; 85025; 87040; 87070; 87205; 73590; 99284; 96374; 96375 ×3; J2270; J2405; J1885; J0690; 87077; 87186

== ENCOUNTER 2018-12-31 13:31 | Inpatient (IN) | payer OTHER ==
[2018-12-31] MEDS ORDERED: ONDANSETRON 4 MG/2 ML VIAL IVP STA (14:06)
[2018-12-31] MEDS ORDERED: KETOROLAC 30 MG/ML 1 ML VIAL IVP STA (14:06)
[2018-12-31] MEDS ORDERED: SODIUM CHLORIDE 0.9% 1,000 ML IV ONE (14:07)
--- NOTE | 2018-12-31 14:46 | ED ---
Wound/Laceration HPI - General Source: patient, RN notes reviewed Mode of arrival: wheelchair Limitations: no limitations <Roger Iqbal - Last Filed: 12/31/18 15:55> <Fazal Cabrera - Last Filed: 12/31/18 16:01> - General Chief Complaint: Wound/Laceration Stated Complaint: Mrsa Time Seen by Provider: 12/31/18 13:54 - History of Present Illness Initial Comments: 58-year-old female presents emergency Department with chief complaint of right leg wound. Patient states is worsened. Patient states that she fell month ago or so. Patient states she was seen in emergency from one week ago for the same woundon Keflex and Bactrim. Patient states she received a phone call telling her that it was MRSA. Patient stop the Keflex at that time states that now the infection has worsened. Patient cannot tolerate oral antibiotics states that she has been vomiting for last 4 days. Patient states that there is also inc reasingly painful. Patient states that it is a deep hole with surrounding redness. (Roger Iqbal) - Related Data Home Medications Medication Instructions Recorded Confirmed Albuterol Inhaler [Ventolin Hfa 2 puff INHALATION RT-Q6H PRN 05/23/18 12/31/18 Inhaler] Aspirin EC [Ecotrin Low Dose] 81 mg PO DAILY 05/23/18 12/31/18 Gabapentin [Neurontin] 300 mg PO TID 05/23/18 12/31/18 Loratadine 10 mg PO DAILY 05/23/18 12/31/18 Meloxicam 15 mg PO DAILY 05/23/18 12/31/18 Omeprazole [PriLOSEC] 20 mg PO AC-BID 05/23/18 12/31/18 Venlafaxine HCl ER [Effexor XR] 75 mg PO DAILY 05/23/18 12/31/18 Cholecalciferol [Vitamin D3] 5,000 unit PO DAILY 12/23/18 12/31/18 Previous Rx's Medication Instructions Recorded Ibuprofen 600 mg PO TID #30 tablet 12/23/18 Sulfamethox-Tmp 800-160Mg [Bactrim 2 tab PO Q12HR #40 tab 12/23/18 DS 800-160 mg] Allergies Allergy/AdvReac Type Severity Reaction Status Date / Time amoxicillin Allergy Rash/Hives Verified 04/02/19 14:01 bee venom protein (honey bee) Allergy Anaphylaxis Verified 12/31/18 14:01 Penicillins Allergy Rash/Hives Verified 12/31/18 14:01 Review of Systems ROS Other: All systems not noted in ROS Statement are negative. <Roger Iqbal - Last Filed: 12/31/18 15:55> ROS Other: All systems not noted in ROS Statement are negative. <Fazal Cabrera - Last Filed: 12/31/18 16:01> ROS Statement: Those systems with pertinent positive or pertinent negative responses have been documented in the HPI. Past Medical History Past Medical History: Fibromyalgia, GERD/Reflux, Osteoarthritis (OA), Pneumonia, Syncope Additional Past Medical History / Comment(s): Hypotension, syncopal episodes, severe facial neuropathy, neuropathy bilateral legs/feet, mid to low back pain with right sided sciatica, scoliosis, R foot neuroma, trigger fingers. History of Any Multi-Drug Resistant Organisms: MRSA Date of last positivie culture/infection: 12/23/18 MDRO Source:: MRSA LEG Past Surgical History: Hysterectomy, Tubal Ligation Additional Past Surgical History / Comment(s): left ankle fracture with surgical repair-pt unsure if any hardware, 6 foot surgeries- bunionectomies and R foot neuroma removals Past Anesthesia/Blood Transfusion Reactions: No Reported Reaction, Motion Sic kness Past Psychological History: Anxiety, Depression, Panic Disorder, PTSD Smoking Status: Current every day smoker Past Alcohol Use History: None Reported Past Drug Use History: None Reported - Past Family History Father History Unknown: Yes Additional Family Medical History / Comment(s): Father when pt was 4 yrs old. Mother Additional Family Medical History / Comment(s): Mother is . She had neuropathy and headaches. <Roger Iqbal - Last Filed: 12/31/18 15:55> General Exam Limitations: no limitations General appearance: alert, in no apparent distress Head exam: Present: atraumatic, normocephalic, normal inspection Eye exam: Present: normal appearance, PERRL, EOMI. Absent: scleral icterus, conjunctival injection, periorbital swelling Respiratory exam: Present: normal lung sounds bilaterally. Absent: respiratory distress, wheezes, rales, rhonchi, stridor Cardiovascular Exam: Present: regular rate, normal rhythm, normal heart sounds. Absent: systolic murmur, diastolic murmur, rubs, gallop, clicks Extremities exam: Present: other (Right anterior davis proximal aspect there is a 2 cm open wound approximate half centimeter deep surrounding erythema and tenderness with palpation) Skin exam: Present: warm, intact, normal color. Absent: rash <Roger Iqbal - Last Filed: 12/31/18 15:55> Course <Fazal Cabrera - Last Filed: 12/31/18 16:01> Vital Signs 12/31/18 13:33 Temperature 98.6 F Pulse Rate 71 Respiratory 18 Rate Blood Pressure 122/77 O2 Sat by Pulse 98 Oximetry - Reevaluation(s) Reevaluation #1: 12/31/18 16:00 PA supervision: I proceeded [id number] evaluation the patient did discuss findings with her. Patient does have a right lower extremity wound that is not healing is had nausea vomiting and unable to tolerate her oral antibiotics. Patient does have approximately 2.5 cm diameter wound that is tracking upward. She does have some tenderness to the inguinal lymph nodes. No definite lymphangitis however. I did discuss the case with Dr. means patient be admitted for IV antibiotics and infectious disease/wound care consultation. (Fazal Cabrera) Medical Decision Making - Lab Data Result diagrams: 12/31/18 14:36 12/31/18 14:36 <Roger Iqbal - Last Filed: 12/31/18 15:55> - Lab Data Result diagrams: 12/31/18 14:36 12/31/18 14:36 <Fazal Cabrera - Last Filed: 12/31/18 16:01> - Medical Decision Making 58-year-old female presented for right leg wound. Patient has failed outpatient treatment on oral antibiotics. Symptoms are worsening. Patient has an open wound that needs to be debrided. Patient be admitted for wound care and further evaluation. (Roger Iqbal) - Lab Data Lab Results 12/31/18 12/31/18 12/31/18 Range/Units 14:36 14:36 14:36 WBC 8.4 (3.8-10.6) k/uL RBC 4.88 (3.80-5.40) m/uL Hgb 14.7 (11.4-16.0) gm/dL Hct 46.0 (34.0-46.0) % MCV 94.1 (80.0-100.0) fL MCH 30.1 (25.0-35.0) pg MCHC 32.0 (31.0-37.0) g/dL RDW 12.9 (11.5-15.5) % Plt Count 306 (150-450) k/uL Neutrophils % 62 % Lymphocytes % 29 % Monocytes % 5 % Eosinophils % 2 % Basophils % 1 % Neutrophils # 5.2 (1.3-7.7) k/uL Lymphocytes # 2.4 (1.0-4.8) k/uL Monocytes # 0.4 (0-1.0) k/uL Eosinophils # 0.1 (0-0.7) k/uL Basophils # 0.1 (0-0.2) k/uL Sodium 139 (137-145) mmol/L Potassium 5.0 (3.5-5.1) mmol/L Chloride 110 H (98-107) mmol/L Carbon Dioxide 22 (22-30) mmol/L Anion Gap 7 mmol/L BUN 15 (7-17) mg/dL Creatinine 0.72 (0.52-1.04) mg/dL Est GFR (CKD-EPI)AfAm >90 (>60 ml/min/1.73 sqM) Est GFR (CKD-EPI)NonAf >90 (>60 ml/min/1.73 sqM) Glucose 97 (74-99) mg/dL Plasma Lactic Acid Sergey 1.2 (0.7-2.0) mmol/L Calcium 10.3 H (8.4-10.2) mg/dL Total Bilirubin 0.6 (0.2-1.3) mg/dL AST 29 (14-36) U/L ALT 23 (9-52) U/L Alkaline Phosphatase 75 (38-126) U/L C-Reactive Protein <5.0 (<10.0) mg/L Total Protein 7.6 (6.3-8.2) g/dL Albumin 4.6 (3.5-5.0) g/dL Disposition <Roger Iqbal - Last Filed: 12/31/18 15:55> <Fazal Cabrera - Last Filed: 12/31/18 16:01> Clinical Impression: Leg wound, right, Cellulitis, Failure of outpatient treatment Disposition: ADMITTED IP TO THIS HOSP Condition: Fair Referrals: None,Stated [Primary Care Provider] - 1-2 days
--- NOTE | 2018-12-31 15:06 | XR ---
EXAMINATION TYPE: XR tibia fibula RT DATE OF EXAM: 12/31/2018 COMPARISON: NONE HISTORY: 58-year-old female pain and chronic open wound TECHNIQUE: 2 view FINDINGS: Wound along the superior pretibial region. No underlying periostitis or osteolysis. No acute fracture is identified. No retained radiopaque foreign body. IMPRESSION: Superior pretibial soft tissue wound. No underlying acute osseous abnormality seen.
[2018-12-31 15:13] LABS: Basophils # (A) 0.1 k/uL (0-0.2); Basophils % (A) 1 %; Eosinophils # (A) 0.1 k/uL (0-0.7); Eosinophils % (A) 2 %; HGB 14.7 gm/dL (11.4-16.0); Lymphocytes # (A) 2.4 k/uL (1.0-4.8); Lymphocytes % (A) 29 %; MCH 30.1 pg (25.0-35.0); MCV 94.1 fL (80.0-100.0); Monocytes # (A) 0.4 k/uL (0-1.0); Monocytes % (A) 5 %; Neutrophils # (A) 5.2 k/uL (1.3-7.7); Neutrophils % (A) 62 %; Platelet Count 306 k/uL (150-450); RBC 4.88 m/uL (3.80-5.40); RDW 12.9 % (11.5-15.5); WBC 8.4 k/uL (3.8-10.6)
[2018-12-31 15:17] LABS: ALT 23 U/L (9-52); AST 29 U/L (14-36); Albumin 4.6 g/dL (3.5-5.0); Alkaline Phosphatase 75 U/L (38-126); Anion Gap 7 mmol/L; Blood Urea Nitrogen 15 mg/dL (7-17); C Reactive Protein <5.0 mg/L (<10.0); Calcium 10.3 mg/dL (8.4-10.2); Carbon Dioxide 22 mmol/L (22-30); Chloride 110 mmol/L (98-107); Glucose 97 mg/dL (74-99); Sodium 139 mmol/L (137-145); Total Bilirubin 0.6 mg/dL (0.2-1.3); Total Protein 7.6 g/dL (6.3-8.2)
[2018-12-31] MEDS ORDERED: cefTRIAXone IN SWFI 1,000 MG/10 ML SYRINGE IVP STA (15:55)
[2018-12-31] MEDS ORDERED: VANCOMYCIN IV PER PHARMACY 1 EACH MISC MISCELLANE PRN (15:55)
[2018-12-31] MEDS ORDERED: IBUPROFEN 400 MG TAB PO PRN (15:56)
[2018-12-31] MEDS ORDERED: NALOXONE 0.4 MG/ML 1 ML VIAL IV PRN (15:56)
[2018-12-31] MEDS ORDERED: ACETAMINOPHEN TAB 325 MG TAB PO PRN (15:56)
[2018-12-31] MEDS ORDERED: VANCOMYCIN 1,250 MG in SODIUM CHLORIDE 0.9% 250 ML IVPB STA (16:07)
[2018-12-31] MEDS: HYDROcodone/APAP 5-325MG 1 EACH TAB PO STA ×2 (16:21→16:24)
[2018-12-31] MEDS ORDERED: ALBUTEROL NEBULIZED 2.5 MG/3 ML INHALATION PRN (16:52)
[2018-12-31] MEDS ORDERED: TEMAZEPAM 15 MG CAP PO PRN (18:12)
[2018-12-31] MEDS: ONDANSETRON 4 MG/2 ML VIAL IVP PRN (19:59)
[2018-12-31] MEDS: MORPHINE SULFATE 2 MG/ML SYRINGE IVP PRN (20:00)
[2018-12-31] MEDS: HEPARIN SODIUM,PORCINE 5,000 UNIT/ML 1 ML VIAL SQ SCH (21:59)
[2018-12-31] MEDS: GABAPENTIN 300 MG CAP PO SCH (22:00)
--- NOTE | 2018-12-31 23:22 | HP ---
HISTORY AND PHYSICAL DATE OF SERVICE: 12/31/2018. CHIEF COMPLAINT: Pain and swelling of the right leg davis wound. HISTORY OF PRESENT ILLNESS: This 58-year-old woman with a past medical history of multiple medical problems including fibromyalgia, DJD, history of syncope, hypertension, anxiety, depression, panic disorder, PTSD. The patient apparently fell from the porch apparently a few weeks ago and the patient developed nonhealing ulcer on the right davis. The patient was admitted for further evaluation and treatment. There is no history of fevers or rigors. No history of headache, loss of consciousness, seizures. Patient has significant social issues also. On admission CBC within normal limits. The patient apparently was supposed to see a primary physician whom she fired today according to her. PAST MEDICAL HISTORY: Fibromyalgia, GERD, DJD, history of pneumonia, syncope, history of MRSA, history of anxiety, depression, panic disorder, PTSD. MEDICATIONS: Home medications are: 1. Effexor XR 75 mg p.o. daily. 2. Bactrim DS 1 p.o. b.i.d. 3. Prilosec 20 mg b.i.d. 4. Meloxicam 50 mg. 5. Loratadine 10 mg p.o. daily. 6. Ibuprofen 600 mg p.o. t.i.d. 7. Neurontin 300 mg daily. 8. Vitamin D3, 5000 daily. 9. Ecotrin 81 mg daily. 10.Ventolin HFA 2 puffs every 6 hours p.r.n. ALLERGIES: AMOXICILLIN, BEE VENOM, PENICILLIN. FAMILY HISTORY: No history of heart disease. Family history is unremarkable. SOCIAL HISTORY: Smoking. No history of alcohol. REVIEW OF SYSTEMS: ENT: No diminished vision or hearing. CARDIOVASCULAR: No angina or palpations. CARDIOVASCULAR: As mentioned. RESPIRATORY: As mentioned. GI: As mentioned. : No dysuria or hematuria. NERVOUS SYSTEM: No numbness or weakness. ALLERGY/IMMUNOLOGY: As mentioned earlier. MUSCULOSKELETAL: As mentioned earlier. HEMATOLOGY/ONCOLOGY: Negative. ENDOCRINE: No history of diabetes or hypothyroidism. CONSTITUTIONAL: Negative. DERMATOLOGY: Negative. PSYCHIATRY: As mentioned earlier. PHYSICAL EXAMINATION: Alert, oriented x3. Pulse is 56, blood pressure 109/75, respirations 16, temp 98.2, pulse ox 96% on room air. HEENT: Conjunctivae normal. NECK: No JVD. CARDIOVASCULAR: S1 and S2 muffled. LUNGS: Breath sounds diminished at the bases. No rhonchi no crackles. ABDOMEN: Soft, nontender. No mass palpable. EXTREMITIES: Right leg significant edema and erythema and ulceration also present. Some purulent discharge. NERVOUS SYTEM: Higher functions as mentioned. Moves all limbs. No focal deficits. LYMPHATICS: No lymph nodes palpable in the neck, axillae or groin. JOINTS: No active arthropathy. LABS: CBC within normal limits. Sodium 130, potassium 5. ASSESSMENT: 1. Nonhealing ulcer on the right davis with infection. Rule out MRSA. 2. History of fibromyalgia. 3. GERD. 4. Degenerative joint disease. 5. History of pneumonia. 6. History of syncope. 7. Hypotension. 8. History of facial neuropathy. 9. History of degenerative joint disease. 10.History of MRSA leg. 11.History of anxiety, depression, panic disorder, PTSD. 12.Significant social issues. RECOMMENDATIONS: In this 58-year-old woman who presented with multiple medical issues, I would recommend to continue current management. I recommended intravenous vancomycin. Infectious evaluation. Otherwise, recommend orthopedic evaluation. Follow the cultures. Resume the home medications. DVT prophylaxis. See orders for details. Symptomatic treatment also provided. Overall prognosis guarded because of multiple complex medical issues. I would also recommend the patient follow up with primary physician closely in the outpatient setting. MMSUSHILAL / WANDAN: [id number] /
[2019-01-01] MEDS: MORPHINE SULFATE 2 MG/ML SYRINGE IVP PRN ×5 (00:16→20:45)
[2019-01-01] MEDS: VANCOMYCIN 1,250 MG in SODIUM CHLORIDE 0.9% 250 ML IVPB SCH ×3 (02:38→20:45)
[2019-01-01] MEDS: ONDANSETRON 4 MG/2 ML VIAL IVP PRN ×2 (07:52→16:38)
[2019-01-01] MEDS: VENLAFAXINE HCL ER 75 MG CAP PO SCH (07:54)
[2019-01-01] MEDS: CHOLECALCIFEROL 1,000 UNIT TAB PO SCH (07:54)
[2019-01-01] MEDS: PANTOPRAZOLE 40 MG TABLET PO SCH (07:55)
[2019-01-01] MEDS: GABAPENTIN 300 MG CAP PO SCH ×3 (07:55→22:43)
[2019-01-01] MEDS: LORATADINE 10 MG TAB PO SCH (07:55)
[2019-01-01 08:37] LABS: Basophils # (A) 0.1 k/uL (0-0.2); Basophils % (A) 1 %; Eosinophils # (A) 0.3 k/uL (0-0.7); Eosinophils % (A) 4 %; HCT 43.3 % (34.0-46.0); HGB 13.6 gm/dL (11.4-16.0); Lymphocytes # (A) 3.7 k/uL (1.0-4.8); Lymphocytes % (A) 50 %; MCH 29.7 pg (25.0-35.0); MCHC 31.4 g/dL (31.0-37.0); MCV 94.4 fL (80.0-100.0); Mean Platelet Volume 7.1; Monocytes # (A) 0.5 k/uL (0-1.0); Monocytes % (A) 6 %; Neutrophils # (A) 2.6 k/uL (1.3-7.7); Neutrophils % (A) 35 %; Platelet Count 299 k/uL (150-450); RBC 4.59 m/uL (3.80-5.40); WBC 7.4 k/uL (3.8-10.6)
[2019-01-01 08:41] LABS: Anion Gap 5 mmol/L; Blood Urea Nitrogen 19 mg/dL (7-17); Calcium 9.1 mg/dL (8.4-10.2); Carbon Dioxide 23 mmol/L (22-30); Chloride 112 mmol/L (98-107); Glucose 75 mg/dL (74-99); Potassium 4.5 mmol/L (3.5-5.1); Sodium 140 mmol/L (137-145)
[2019-01-01] MEDS ORDERED: NON-FORMULARY DRUG (Meloxicam [Meloxicam] 15 MG) PO SCH (09:00)
[2019-01-01] MEDS: NICOTINE 14MG/24HR PATCH TRANSDERM SCH (09:18)
[2019-01-01] MEDS: ASPIRIN 81 MG PO SCH (09:18)
[2019-01-01] MEDS: HEPARIN SODIUM,PORCINE 5,000 UNIT/ML 1 ML VIAL SQ SCH ×2 (09:18→20:53)
[2019-01-01] MEDS: LORazepam 0.5 MG TAB PO PRN ×2 (15:42→22:43)
--- NOTE | 2019-01-01 16:17 | CONS ---
CONSULTATION DATE OF SERVICE: 01/01/2019 REASON FOR CONSULTATION: Right leg wound. HISTORY: Gabby is a 58-year-old woman with medical history of multiple medical problems. She apparently fell off of her porch approximately 5 weeks ago per her account and developed some swelling in her right davis. She did not seek any medical care for this for quite some time. She then developed a draining wound, which has subsequently progressed. She was seen in the emergency department yesterday. She was admitted to the hospital. We were consulted for evaluation of her nonhealing wound. MEDICAL HISTORY: Fibromyalgia, GERD, degenerative joint disease. Pneumonia, syncope, history of MRSA, anxiety, depression, panic disorder and posttraumatic stress disorder. HOME MEDICATIONS: Include Effexor, Bactrim, Prilosec, meloxicam, Ranitidine, Ibuprofen, Neurontin, vitamin D, Ecotrin, and Ventolin. ALLERGIES: SHE IS ALLERGIC TO AMOXICILLIN, BEE VENOM, AND PENICILLIN. SOCIAL HISTORY: She is a current smoker. PHYSICAL EXAMINATION: She is afebrile. Vital signs are stable. Evaluation of her right leg, she had a bandage over her right davis. She did remove this. She approximately 2.5 cm in diameter ulcerative type wound on the anterior aspect of her lower leg. This is approximately 7 to 10 cm distal to her knee joint. There is very little erythema around it. It is not currently draining. It is relatively dry. It does have the appearance of dehiscence from previous hematoma. There is no streaking erythema noted. There is no fluid collections of palpation around the ulcerative wound. Distally she has intact flexion-extension, inversion-eversion of the ankle. She has intact flexion-extension of all of her toes. She has brisk capillary refill. Palpable posterior tibial pulse and she has intact sensation to the medial, lateral, plantar, and dorsal and dorsum of her foot. IMPRESSION: Nonhealing ulcer of the right lower leg. RECOMMENDATIONS: Gabby is certainly has a nonhealing ulcer type wound on her on her leg. We would not recommend any sort of primary closure for this. The wound is dry. This would this would in my opinion would best be treated with a wound VAC and IV antibiotics. There is concern that this is MRSA as well. I would recommend a consult to the [facility] for a wound VAC placement and management of this wound. I would certainly allow this to heal by secondary intention. All of Gabby's questions were answered to her satisfaction. We will continue to follow. MMODL / IJN: [id number] /
--- NOTE | 2019-01-01 20:38 | PN ---
PROGRESS NOTE DATE OF SERVICE: 01/01/2019 This 58-year-old woman was admitted with significant ulceration of the right leg, is being closely monitored. Patient is seen by Orthopedic Surgery who recommended wound VAC placement. Infectious Disease evaluation in progress at this time. The cultures are pending. Please refer to the staff notes for further details. Otherwise, the patient is being closely monitored. No chest pain. No palpitation. EXAM: Alert and oriented x3. Pulse 86, blood pressure 177/80, respiration 18. Temperature is normal, 98.2, pulse ox 94% on room air. HEENT: Conjunctivae normal. NECK: No jugular venous distention. Cardiovascular: S1, S2 muffled. RESPIRATORY SYSTEM: Breath sounds diminished at the bases. A few scattered rhonchi. Abdomen soft, nontender. Central nervous system: No focal deficits. LABORATORY DATA: CBC within normal limites. Sodium 140, potassium 4.5. ASSESSMENT: 1. Status post fall and hematoma. 2. Nonhealing ulcer on the right davis with infection with rule out MRSA. 3. History of fibromyalgia. 4. Gastroesophageal reflux disease. 5. Gastroesophageal reflux disease. 6. Degenerative joint disease. 7. History of pneumonia. 8. History of syncope. 9. History of hypotension. 10.History of facial neuropathy. 11.History of degenerative joint disease. 12.History of MRSA leg. 13.History of anxiety, depression, panic disorder, PTSD. 14.Significant social issues. RECOMMENDATIONS AND DISCUSSION: Recommend to continue current medications, management and symptomatic treatment. Otherwise, at this time, I would recommend continue to monitor, continue the broad- spectrum IV antibiotics. Follow the cultures. Infectious disease evaluation. Orthopedics evaluation noted and psychiatry is also consulted. Prognosis guarded. Further recommendations to follow. See orders for details. The patient is on broad- spectrum IV antibiotics. DVT prophylaxis. MMODL / IJN: [id number] /
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
[2019-01-02] MEDS: MORPHINE SULFATE 2 MG/ML SYRINGE IVP PRN ×4 (07:13→20:31)
[2019-01-02] MEDS: ONDANSETRON 4 MG/2 ML VIAL IVP PRN ×2 (07:13→16:13)
[2019-01-02] MEDS: ASPIRIN 81 MG PO SCH (07:19)
[2019-01-02] MEDS: VENLAFAXINE HCL ER 75 MG CAP PO SCH (07:19)
[2019-01-02] MEDS: CHOLECALCIFEROL 1,000 UNIT TAB PO SCH (07:19)
[2019-01-02] MEDS: PANTOPRAZOLE 40 MG TABLET PO SCH (07:19)
[2019-01-02] MEDS: LORATADINE 10 MG TAB PO SCH (07:19)
[2019-01-02] MEDS: GABAPENTIN 300 MG CAP PO SCH ×3 (07:19→21:44)
[2019-01-02] MEDS: HEPARIN SODIUM,PORCINE 5,000 UNIT/ML 1 ML VIAL SQ SCH ×2 (07:20→20:56)
[2019-01-02] MEDS: NICOTINE 14MG/24HR PATCH TRANSDERM SCH (07:20)
[2019-01-02] MEDS ORDERED: VANCOMYCIN TROUGH DUE 1 EACH MISC MISCELLANE ONE (08:00)
[2019-01-02 08:37] LABS: Basophils # (A) 0.1 k/uL (0-0.2); Basophils % (A) 1 %; Eosinophils # (A) 0.4 k/uL (0-0.7); Eosinophils % (A) 6 %; HCT 38.3 % (34.0-46.0); HGB 12.8 gm/dL (11.4-16.0); Lymphocytes # (A) 2.3 k/uL (1.0-4.8); Lymphocytes % (A) 39 %; MCH 30.5 pg (25.0-35.0); MCHC 33.3 g/dL (31.0-37.0); MCV 91.6 fL (80.0-100.0); Mean Platelet Volume 7.2; Monocytes # (A) 0.3 k/uL (0-1.0); Monocytes % (A) 5 %; Neutrophils # (A) 2.8 k/uL (1.3-7.7); Neutrophils % (A) 47 %; Platelet Count 271 k/uL (150-450); RBC 4.18 m/uL (3.80-5.40); RDW 13.4 % (11.5-15.5)
[2019-01-02 08:45] LABS: Anion Gap 4 mmol/L; Blood Urea Nitrogen 13 mg/dL (7-17); Calcium 8.9 mg/dL (8.4-10.2); Carbon Dioxide 23 mmol/L (22-30); Chloride 113 mmol/L (98-107); Glucose 102 mg/dL (74-99); Potassium 4.7 mmol/L (3.5-5.1); Sodium 140 mmol/L (137-145)
[2019-01-02] MEDS: LORazepam 0.5 MG TAB PO PRN ×2 (09:22→16:14)
[2019-01-02] MEDS: VANCOMYCIN 1,250 MG in SODIUM CHLORIDE 0.9% 250 ML IVPB SCH ×2 (09:23→20:31)
[2019-01-02] MEDS: KETOROLAC 30 MG/ML 1 ML VIAL IVP SCH ×2 (13:45→18:29)
--- NOTE | 2019-01-02 13:53 | NM ---
EXAMINATION TYPE: NM bone 3 phase DATE OF EXAM: 01/02/2019 COMPARISON: Radiographs right tibia/fibula 12/31/2018 HISTORY: 58-year-old female with right davis pain after fall 5 weeks ago Technique: Triple phase bone scintigraphy was performed following the injection of 21.5 mCi Tc 99m MD P. Immediate images and 4.25 hours post injection images acquired. Imaging centered at the knees and legs. FINDINGS: There is intense focal uptake along the anterolateral proximal right leg on flow and pool imaging. On delayed imaging, the soft tissue uptake clears but there is slight asymmetric increased uptake wit hin the proximal tibial shaft. IMPRESSION: 1. Increased flow and pool within the soft tissues of the anterolateral upper right leg. Findings cou ld represent a wound or cellulitis. 2. Delayed images show asymmetric increased uptake within the underlying proximal right tibial shaft. Findings suspected to be reactive to the overlying soft tissue abnormality. Early osteomyelitis woul d be difficult to exclude given this finding. Close follow-up recommended.
[2019-01-02 15:37] VITALS: BMI 27.6
--- NOTE | 2019-01-02 18:03 | XR ---
EXAMINATION: XR chest 1V portable DATE AND TIME: 01/02/2019 5:54 PM CLINICAL INDICATION: PHH; chf TECHNIQUE: Portable AP upright COMPARISON: 06/15/2018 FINDINGS: There is no pulmonary edema. The lungs appear to be clear, other than a few scattered bilateral linear bands of added opacity cons istent with subsegmental atelectasis. In addition, it is noted that the left lung base is not well-vi sualized. The pleural spaces are negative as seen. The cardiac silhouette appears mildly enlarged. The remainder of the mediastinal silhouette is unrema rkable. The skeletal structures and soft tissues are negative for acute findings. IMPRESSION: NO DEFINITE ACUTE PROCESS.
[2019-01-02] MEDS ORDERED: VENLAFAXINE HCL ER 150 MG CAP PO SCH (21:00)
--- NOTE | 2019-01-02 21:11 | PN ---
PROGRESS NOTE DATE OF SERVICE: 01/02/2019 This 58-year-old woman was admitted with fall and as well as a traumatic also a nonhealing. A bone scan was recommend by Dr. Ingram which showed suspicious to be reactive but early osteomyelitis cannot be ruled out. The patient on broad spectrum IV antibiotics. Patient has significant anxiety issues also. Currently feeling much better. PAST MEDICAL HISTORY: Reviewed. REVIEW OF SYSTEM: CARDIOVASCULAR: No angina or palpitations. RESPIRATORY: As mentioned earlier. GASTROINTESTINAL: As mentioned earlier. no dysuria. CENTRAL NERVOUS SYSTEM: No focal deficits. CURRENT MEDICATIONS ARE: Reviewed and include: 1. Tylenol p.r.n. 2. [place] 5 mg p.r.n. 3. Xanax 0.5 t.i.d. 4. Aspirin 81 mg. 5. Vitamin D3. 6. Neurontin 300 mg. 8. Motrin. 9. Toradol p.r.n. 10.Ativan. 11.Morphine sulfate. 12.Narcan. 13.Habitrol. 14.Vancomycin. PHYSICAL EXAM: Patient is alert and oriented x3. The pulse is 59, blood pressure is 108/69. Respiratory rate 12. Temperature 98.2, pulse ox 97% on room air. HEENT: Conjunctivae normal. NECK: No jugular venous distention. CARDIOVASCULAR: S1, S2 muffled. RESPIRATORY: Breath sounds diminished in the bases. No rhonchi. No crackles. ABDOMEN: Soft, nontender. No mass palpable. Legs: Leg ulcers, swelling and erythema and cellulitis. Left leg is bandaged. NERVOUS SYSTEM: No focal deficits. LABS: At this time shows WBC 6, hemoglobin 12.8, sodium is 113. ASSESSMENT: 1. Status post fall and hematoma and nonhealing ulcer on the right davis with possible osteomyelitis infection, rule out MRSA. 2. History of fibromyalgia. 3. Gastroesophageal reflux disease. 4. Degenerative joint disease. 5. History of pneumonia. 6. History of syncope. 7. History of hypotension. 8. History of facial neuropathy. 9. History of degenerative joint disease. 10.MRSA. 11.History of anxiety, depression, panic disorder, PTSD. 12.Significant social issues. RECOMMENDATIONS AND DISCUSSION: Recommend to continue current medication, management and symptomatic treatment. Continue with antibiotics, we will await the cultures. We will closely work with Extrusion Line Operator. The prognosis guarded. Further recommendations to follow. Infectious disease is also following the patient closely. MMODL / IJN: [id number] / MTDD
[2019-01-03] MEDS: KETOROLAC 30 MG/ML 1 ML VIAL IVP SCH ×5 (00:25→23:54)
[2019-01-03] MEDS: ONDANSETRON 4 MG/2 ML VIAL IVP PRN ×2 (05:36→13:45)
[2019-01-03] MEDS: HEPARIN SODIUM,PORCINE 5,000 UNIT/ML 1 ML VIAL SQ SCH ×2 (07:27→21:51)
[2019-01-03] MEDS: NICOTINE 14MG/24HR PATCH TRANSDERM SCH (07:28)
[2019-01-03] MEDS: ASPIRIN 81 MG PO SCH (07:28)
[2019-01-03 07:30] LABS: Basophils # (A) 0.1 k/uL (0-0.2); Basophils % (A) 1 %; Eosinophils # (A) 0.5 k/uL (0-0.7); Eosinophils % (A) 7 %; HCT 37.6 % (34.0-46.0); HGB 12.5 gm/dL (11.4-16.0); Lymphocytes # (A) 2.3 k/uL (1.0-4.8); Lymphocytes % (A) 33 %; MCH 29.9 pg (25.0-35.0); MCHC 33.3 g/dL (31.0-37.0); MCV 89.9 fL (80.0-100.0); Monocytes # (A) 0.4 k/uL (0-1.0); Monocytes % (A) 6 %; Neutrophils # (A) 3.5 k/uL (1.3-7.7); Neutrophils % (A) 51 %; Platelet Count 255 k/uL (150-450); RBC 4.19 m/uL (3.80-5.40); RDW 13.7 % (11.5-15.5); WBC 6.8 k/uL (3.8-10.6)
[2019-01-03] MEDS: GABAPENTIN 300 MG CAP PO SCH ×3 (07:37→21:51)
[2019-01-03] MEDS: PANTOPRAZOLE 40 MG TABLET PO SCH (07:37)
[2019-01-03] MEDS: CHOLECALCIFEROL 1,000 UNIT TAB PO SCH (07:37)
[2019-01-03] MEDS: VANCOMYCIN 1,250 MG in SODIUM CHLORIDE 0.9% 250 ML IVPB SCH ×2 (07:37→21:50)
[2019-01-03] MEDS: LORATADINE 10 MG TAB PO SCH (07:37)
[2019-01-03 07:56] LABS: Anion Gap 5 mmol/L; Blood Urea Nitrogen 14 mg/dL (7-17); Calcium 9.1 mg/dL (8.4-10.2); Carbon Dioxide 24 mmol/L (22-30); Chloride 109 mmol/L (98-107); Glucose 80 mg/dL (74-99); Sodium 138 mmol/L (137-145)
[2019-01-03] MEDS: MORPHINE SULFATE 2 MG/ML SYRINGE IVP PRN ×4 (08:04→23:57)
[2019-01-03] MEDS: VENLAFAXINE HCL ER 150 MG CAP PO SCH (21:51)
--- NOTE | 2019-01-04 00:02 | P.PN ---
Subjective Progress Note Date: 01/03/19 58-year-old woman who seems to have multiple medical troubles that includes diabetes mellitus relates that 5 weeks ago she was working outside and fell off the porch resulting in trauma to her right pretibial area. She relates she had some bruising and eventually she open to a large open ulceration this problematic. She is been seen in the outpatient setting and cultures were performed. With evidence of MRSA and failure of improvement she's now been brought in the hospital for further intervention. The patient is vague and is a poor historian. She has a sitter present. It's unclear at this time if this is her baseline mental status or if there is some narcotic or alcohol withdrawal occurring. She is cooperative but mildly inappropriate. 01/03/2019 patient is feeling slightly better. She's been able to eat without great difficulties. She is without fevers or chills. Patient has had imaging studies performed to reveal evidence of osteomyelitis to the right knee. Patient is informed about current plans. Objective - Vital Signs Vital signs: Vital Signs Temp 98.0 F 01/03/19 20:55 Pulse 55 L 01/03/19 20:55 Resp 17 01/03/19 20:55 BP 117/69 01/03/19 20:55 Pulse Ox 95 01/03/19 20:55 Intake & Output 01/03/19 01/03/19 01/04/19 06:59 18:59 06:59 Intake Total 650 700 Balance 650 700 Intake: Intake, IV Titration 250 250 Amount Vancomycin 1,250 mg In 250 250 Sodium Chloride 0.9% 250 ml @ 125 mls/hr IVPB Q12HR [facility] Rx#:[id number] Oral 400 450 Other: Voiding Method Toilet # Voids 3 2 - Exam 58-year-old woman who looks older than her stated age, she however is not obese HEENT: Anicteric conjunctiva are pink and moist nasal mucosa grossly intact without significant lesions, there is no thrush. Poor dentition Neck: The neck is supple without significant lymphadenopathy or thyromegaly. Lungs: There is symmetrical bilateral air entry without wheezes or the lung spence but no tacho bronchial sounds no dullness or egophony Heart: Regular rate and rhythm with an audible S1-S2, no S3 no S4. There is no significant murmur click or rub, PMI was nondisplaced. Abdomen: Positive bowel sounds soft and nontender without palpable masses or organomegaly. There was no guarding or rebound. Extremities: Upper extremities have no acute lesions IV sites intact. Left lower extremity revealed evidence of the lack of any acute lesions or any edema Right lower shoulder shows evidence the pretibial ulceration that measures approximately 1.1 x 1.1 x 0.8 cm. The full-thickness ulceration has fat layer exposed. There is some undermining at the 12 o'clock position about a centimeter. The traumatic ulceration is present on admission and is been there for about 5 weeks Neuro: Awake alert oriented to person, is not able to clarify time and place. She was able to follow some simple commands but her mentation is mildly bizarre - Labs CBC & Chem 7: 01/03/19 06:36 01/03/19 06:36 Labs: Abnormal Lab Results - Last 24 Hours (Table) 01/03/19 Range/Units 06:36 Chloride 109 H (98-107) mmol/L Microbiology - Last 24 Hours (Table) 12/31/18 14:22 Blood Culture - Preliminary Blood No Growth after 72 hours Laboratory Results WBC 6.8 k/uL (3.8-10.6) 01/03/19 06:36 RBC 4.19 m/uL (3.80-5.40) 01/03/19 06:36 Hgb 12.5 gm/dL (11.4-16.0) 01/03/19 06:36 Hct 37.6 % (34.0-46.0) 01/03/19 06:36 MCV 89.9 fL (80.0-100.0) 01/03/19 06:36 MCH 29.9 pg (25.0-35.0) 01/03/19 06:36 MCHC 33.3 g/dL (31.0-37.0) 01/03/19 06:36 RDW 13.7 % (11.5-15.5) 01/03/19 06:36 Plt Count 255 k/uL (150-450) 01/03/19 06:36 Neutrophils % 51 % 01/03/19 06:36 Lymphocytes % 33 % 01/03/19 06:36 Monocytes % 6 % 01/03/19 06:36 Eosinophils % 7 % 01/03/19 06:36 Basophils % 1 % 01/03/19 06:36 Neutrophils # 3.5 k/uL (1.3-7.7) 01/03/19 06:36 Lymphocytes # 2.3 k/uL (1.0-4.8) 01/03/19 06:36 Monocytes # 0.4 k/uL (0-1.0) 01/03/19 06:36 Eosinophils # 0.5 k/uL (0-0.7) 01/03/19 06:36 Basophils # 0.1 k/uL (0-0.2) 01/03/19 06:36 Sodium 138 mmol/L (137-145) 01/03/19 06:36 Potassium 5.0 mmol/L (3.5-5.1) 01/03/19 06:36 Chloride 109 mmol/L (98-107) H 01/03/19 06:36 Carbon Dioxide 24 mmol/L (22-30) 01/03/19 06:36 Anion Gap 5 mmol/L 01/03/19 06:36 BUN 14 mg/dL (7-17) 01/03/19 06:36 Creatinine 0.78 mg/dL (0.52-1.04) 01/03/19 06:36 Est GFR (CKD-EPI)AfAm >90 (>60 ml/min/1.73 sqM) 01/03/19 06:36 Est GFR (CKD-EPI)NonAf 84 (>60 ml/min/1.73 sqM) 01/03/19 06:36 Glucose 80 mg/dL (74-99) 01/03/19 06:36 Plasma Lactic Acid Sergey 1.2 mmol/L (0.7-2.0) 12/31/18 14:36 Calcium 9.1 mg/dL (8.4-10.2) 01/03/19 06:36 Total Bilirubin 0.6 mg/dL (0.2-1.3) 12/31/18 14:36 AST 29 U/L (14-36) 12/31/18 14:36 ALT 23 U/L (9-52) 12/31/18 14:36 Alkaline Phosphatase 75 U/L (38-126) 12/31/18 14:36 C-Reactive Protein <5.0 mg/L (<10.0) 12/31/18 14:36 Total Protein 7.6 g/dL (6.3-8.2) 12/31/18 14:36 Albumin 4.6 g/dL (3.5-5.0) 12/31/18 14:36 Vancomycin Trough 18.6 ug/mL 01/02/19 07:37 Microbiology 12/31/18 14:22 Blood Blood Culture - Preliminary No Growth after 72 hours 12/31/18 22:10 Leg - Right Gram Stain - Final 12/31/18 22:10 Leg - Right Wound Culture - Final 12/31/18 22:10 Leg - Right Anaerobic Culture - Preliminary Outpatient wound culture with MRSA Assessment and Plan (1) Cellulitis Current Visit: Yes Status: Acute Code(s): L03.90 - CELLULITIS, UNSPECIFIED SNOMED Code(s): 765359769 (2) Traumatic ulcer of right lower extremity with fat layer exposed Narrative/Plan: 58-year-old woman who has underlying multiple medical troubles is related to have fallen off a porch approximate 5 weeks ago resulting in a traumatic ulceration to the right pretibial area. This full-thickness ulceration has a fat layer exposed. We will request a bone scan to evaluate for deeper infection. Antibiotic therapy with vancomycin is started on the basis of the outpatient wound culture showing evidence of MRSA. If she is not up-to-date on her tetanus vaccine that would be helpful Multivitamin is added Protein supplement as added Local wound care with silver alginate is requested to perform every other day. Above findings we'll determine if she will require outpatient intravenous antibiotic therapy 01/03/2019 the agent is without acute change. There is evidence of the ongoing ulceration is tolerating wound care well. The bone scan is with evidence of osteomyelitis to the right tibia. A consequently plans are being made for outpatient intravenous antibiotic therapy. A PICC line to be placed. And likely we'll be doing intravenous antibiotic therapy in the home. We'll have home care also perform the wound care with the silver alginate Q Sunday to the knee. Discharge planning in process. Current Visit: Yes Status: Acute Code(s): L97.912 - NON-PRS CHR ULC UNSP PRT OF R LOW LEG W FAT LAYER EXPOSED SNOMED Code(s): 489977359
[2019-01-04] MEDS: KETOROLAC 30 MG/ML 1 ML VIAL IVP SCH ×3 (05:36→17:47)
[2019-01-04] MEDS: MORPHINE SULFATE 2 MG/ML SYRINGE IVP PRN ×4 (05:37→21:57)
[2019-01-04] MEDS: ONDANSETRON 4 MG/2 ML VIAL IVP PRN ×2 (05:48→17:46)
[2019-01-04] MEDS: ALPRAZolam 0.25 MG TAB PO PRN ×2 (05:49→16:53)
[2019-01-04 07:58] LABS: Basophils # (A) 0.1 k/uL (0-0.2); Basophils % (A) 1 %; Eosinophils # (A) 0.5 k/uL (0-0.7); Eosinophils % (A) 6 %; HCT 39.2 % (34.0-46.0); HGB 13.3 gm/dL (11.4-16.0); Lymphocytes # (A) 2.4 k/uL (1.0-4.8); Lymphocytes % (A) 33 %; MCH 30.2 pg (25.0-35.0); MCHC 33.8 g/dL (31.0-37.0); MCV 89.5 fL (80.0-100.0); Mean Platelet Volume 9.4; Monocytes # (A) 0.4 k/uL (0-1.0); Monocytes % (A) 6 %; Neutrophils # (A) 3.8 k/uL (1.3-7.7); Neutrophils % (A) 52 %; Platelet Count 243 k/uL (150-450); RBC 4.38 m/uL (3.80-5.40); RDW 15.1 % (11.5-15.5); WBC 7.3 k/uL (3.8-10.6)
[2019-01-04 08:05] LABS: INR 0.9 (<1.2); Prothrombin Time 9.8 sec (9.0-12.0)
[2019-01-04] MEDS: HEPARIN SODIUM,PORCINE 5,000 UNIT/ML 1 ML VIAL SQ SCH ×2 (08:07→21:47)
[2019-01-04] MEDS: GABAPENTIN 300 MG CAP PO SCH ×3 (08:07→21:47)
[2019-01-04] MEDS: HYDROcodone/APAP 5-325MG 1 EACH TAB PO PRN (08:07)
[2019-01-04] MEDS: PANTOPRAZOLE 40 MG TABLET PO SCH (08:07)
[2019-01-04] MEDS: CHOLECALCIFEROL 1,000 UNIT TAB PO SCH (08:08)
[2019-01-04] MEDS: NICOTINE 14MG/24HR PATCH TRANSDERM SCH (08:08)
[2019-01-04] MEDS: ASPIRIN 81 MG PO SCH (08:08)
[2019-01-04] MEDS: LORATADINE 10 MG TAB PO SCH (08:08)
--- NOTE | 2019-01-04 08:11 | PN ---
PROGRESS NOTE DATE OF SERVICE: 01/03/2019 This 58-year-old woman who was admitted with a nonhealing ulcer is being closely monitored. Patient is on IV antibiotics. A bone scan has been done. Dr. Ingram is evaluating the patient closely. The bone scan did show some evidence of osteomyelitis of the right tibia, the patient is slated to have broad-spectrum IV antibiotics. No chest pain. No palpitations. No fever. EXAM: Alert and oriented x3. Pulse is 56, blood pressure 122/81, respiration 16, temperature 98 degrees, pulse ox 98% on room air. HEENT: Conjunctivae normal. NECK: No jugular venous distention. CARDIOVASCULAR: S1, S2 muffled. RESPIRATORY: Breath sounds diminished in the bases. No rhonchi. No crackles. Abdomen is soft, nontender. Legs nonhealing ulcer. NERVOUS SYSTEM: No focal deficits. LABORATORY DATA: CBC, BMP within normal limits. ASSESSMENT: 1. Status post fall and hematoma and nonhealing ulcers of the right davis with possible osteomyelitis of the right tibia. Rule out MRSA. 2. History of fibromyalgia. 3. Gastroesophageal reflux disease. 4. Degenerative joint disease. 5. History of pneumonia. 6. History of syncope. 7. History of hypotension. 8. History of facial neuropathy. 9. History of degenerative joint disease. 10.History of MRSA. 11.Anxiety, depression, panic disorder, PTSD. 12.Significant social stressors. RECOMMENDATIONS AND DISCUSSION: Continue current medications, IV antibiotics. Plan outpatient IV antibiotics with PICC line per Infectious Disease. Otherwise, still awaiting the final cultures. Guarded prognosis because of multiple complex medical issues. See orders for further details. Further recommendations to follow. MMODL / IJN: [id number] /
[2019-01-04 08:23] LABS: Calcium 9.5 mg/dL (8.4-10.2); Potassium 4.6 mmol/L (3.5-5.1)
[2019-01-04] MEDS: VANCOMYCIN 1,250 MG in SODIUM CHLORIDE 0.9% 250 ML IVPB SCH ×2 (10:20→21:47)
[2019-01-04] MEDS ORDERED: VANCOMYCIN TROUGH DUE 1 EACH MISC MISCELLANE ONE (20:00)
[2019-01-04] MEDS: VENLAFAXINE HCL ER 150 MG CAP PO SCH (21:47)
[2019-01-05] MEDS: KETOROLAC 30 MG/ML 1 ML VIAL IVP SCH ×4 (00:05→18:28)
[2019-01-05] MEDS: ONDANSETRON 4 MG/2 ML VIAL IVP PRN ×2 (07:36→21:32)
[2019-01-05] MEDS: PANTOPRAZOLE 40 MG TABLET PO SCH (07:36)
[2019-01-05] MEDS: MORPHINE SULFATE 2 MG/ML SYRINGE IVP PRN ×3 (07:37→20:55)
--- NOTE | 2019-01-05 07:44 | PN ---
PROGRESS NOTE DATE OF SERVICE: 01/04/2019 This 58-year-old woman who was admitted with nonhealing ulcer is being closely monitored. The patient had MRSA grown from the wound recently. No chest pain. No palpitations. No fever. EXAM: Alert and oriented x3. Pulse is 57, blood pressure 108/60, respiration 14, temperature 98.2, pulse ox 94% on room air. HEENT: Conjunctivae normal. Oral mucosa moist. NECK: No jugular venous distention. No lymph node enlargement. CARDIOVASCULAR: S1, S2. RESPIRATORY: Diminished breath sounds at the bases. A few scattered rhonchi, no crackles. ABDOMEN: Soft, nontender. LEGS: No swelling. NERVOUS SYSTEM: No focal deficits. LABS: CBC within normal limits. ASSESSMENT: 1. Status post fall and hematoma as well as nonhealing ulcer of the right davis with possible osteomyelitis of the right tibia with MRSA. 2. History of fibromyalgia. 3. Gastroesophageal reflux disease. 4. History of degenerative joint disease. 5. History of pneumonia. 6. History of syncope. 7. History of hypotension. 8. History of facial neuropathy. 9. History of degenerative joint disease. 10.History MRSA. 11.History of anxiety, depression, panic disorder, PTSD. 12.Significant social stressors. RECOMMENDATIONS AND DISCUSSION: Recommend to continue current management, continue symptomatic treatment, continue with IV antibiotics, PICC line. Continue to monitor closely with Infectious Disease. Long- term IV antibiotics. Guarded prognosis because of multiple complex medical issues. Further recommendations to follow. MMODL / IJN: [id number] /
[2019-01-05 08:49] LABS: Basophils # (A) 0.1 k/uL (0-0.2); Basophils % (A) 1 %; Eosinophils # (A) 0.5 k/uL (0-0.7); Eosinophils % (A) 6 %; HCT 43.1 % (34.0-46.0); HGB 14.4 gm/dL (11.4-16.0); Lymphocytes # (A) 2.2 k/uL (1.0-4.8); Lymphocytes % (A) 29 %; MCH 30.2 pg (25.0-35.0); MCHC 33.5 g/dL (31.0-37.0); MCV 90.3 fL (80.0-100.0); Mean Platelet Volume 9.6; Monocytes # (A) 0.4 k/uL (0-1.0); Monocytes % (A) 5 %; Neutrophils # (A) 4.6 k/uL (1.3-7.7); Neutrophils % (A) 58 %; Platelet Count 253 k/uL (150-450); RBC 4.77 m/uL (3.80-5.40); RDW 15.3 % (11.5-15.5); WBC 7.9 k/uL (3.8-10.6)
[2019-01-05] MEDS: ASPIRIN 81 MG PO SCH (08:53)
[2019-01-05] MEDS: CHOLECALCIFEROL 1,000 UNIT TAB PO SCH (08:53)
[2019-01-05] MEDS: LORATADINE 10 MG TAB PO SCH (08:54)
[2019-01-05] MEDS: VANCOMYCIN 1,250 MG in SODIUM CHLORIDE 0.9% 250 ML IVPB SCH ×2 (08:54→20:55)
[2019-01-05] MEDS: HEPARIN SODIUM,PORCINE 5,000 UNIT/ML 1 ML VIAL SQ SCH (08:54)
[2019-01-05] MEDS: GABAPENTIN 300 MG CAP PO SCH ×3 (08:54→20:55)
[2019-01-05] MEDS: NICOTINE 14MG/24HR PATCH TRANSDERM SCH (08:55)
[2019-01-05 08:59] LABS: Calcium 9.7 mg/dL (8.4-10.2)
[2019-01-05 09:01] LABS: INR 0.9 (<1.2); Prothrombin Time 9.7 sec (9.0-12.0)
[2019-01-05] MEDS: LORazepam 0.5 MG TAB PO PRN ×2 (10:00→22:08)
[2019-01-05] MEDS: HYDROcodone/APAP 5-325MG 1 EACH TAB PO PRN (15:39)
--- NOTE | 2019-01-05 19:15 | PN ---
PROGRESS NOTE DATE OF SERVICE: 01/05/2019 This 58-year-old woman was admitted after a fall and osteomyelitis had MRSA grown from the culture. No chest pain. No palpitations. No fever. PICC line and outpatient IV antibiotics recommended. EXAM: Alert and oriented. Pulse 80, blood pressure 128/77, respirations 16, temperature 98.1, pulse ox 97% on room air. HEENT: Conjunctivae normal. NECK: No jugular venous distention. CARDIOVASCULAR: S1, S2. RESPIRATORY: Breath sounds diminished in the bases. No rhonchi, no crackles. ABDOMEN: Soft, nontender. No mass palpable. LEGS: No edema. Right leg ulcer. NERVOUS SYSTEM: No focal deficits. LABS: CBC and BMP within normal limits. ASSESSMENT: 1. Status post fall and hematoma as well as nonhealing ulcer on the right davis with possible osteomyelitis with right tibia with MRSA. 2. History of fibromyalgia. 3. Gastroesophageal reflux disease. 4. History of degenerative joint disease. 5. History of pneumonia. 6. History of syncope. 7. History of hypotension. 8. History of facial neuropathy. 9. History of degenerative joint disease. 10.History of MRSA. 11.History of anxiety, depression, panic disorder, PTSD. 12.Significant social stresses. RECOMMENDATIONS AND DISCUSSION: I recommend to continue current medications. Continue to monitor. Symptomatic treatment. PICC line, IV antibiotics per Case Management and construction worker. Guarded prognosis. Further recommendations to follow. Closely follow with Infectious Disease. MMODL / IJN: [id number] /
[2019-01-05] MEDS: VENLAFAXINE HCL ER 150 MG CAP PO SCH (20:54)
[2019-01-06] MEDS: KETOROLAC 30 MG/ML 1 ML VIAL IVP SCH ×3 (00:19→10:55)
[2019-01-06 01:40] VITALS: RESP 16
[2019-01-06] MEDS: ASPIRIN 81 MG PO SCH (07:11)
[2019-01-06] MEDS: GABAPENTIN 300 MG CAP PO SCH ×2 (07:11→16:21)
[2019-01-06] MEDS: HYDROcodone/APAP 5-325MG 1 EACH TAB PO PRN ×2 (07:11→16:21)
[2019-01-06] MEDS: LORATADINE 10 MG TAB PO SCH (07:11)
[2019-01-06] MEDS: CHOLECALCIFEROL 1,000 UNIT TAB PO SCH (07:12)
[2019-01-06] MEDS: NICOTINE 14MG/24HR PATCH TRANSDERM SCH (07:12)
[2019-01-06] MEDS: ONDANSETRON 4 MG/2 ML VIAL IVP PRN ×2 (07:12→16:51)
[2019-01-06] MEDS: PANTOPRAZOLE 40 MG TABLET PO SCH (07:12)
[2019-01-06 07:43] LABS: Basophils # (A) 0.1 k/uL (0-0.2); Basophils % (A) 1 %; Eosinophils # (A) 0.5 k/uL (0-0.7); Eosinophils % (A) 6 %; HCT 40.6 % (34.0-46.0); HGB 13.5 gm/dL (11.4-16.0); Lymphocytes # (A) 2.2 k/uL (1.0-4.8); Lymphocytes % (A) 28 %; MCH 30.6 pg (25.0-35.0); MCHC 33.3 g/dL (31.0-37.0); MCV 91.9 fL (80.0-100.0); Mean Platelet Volume 6.9; Monocytes # (A) 0.4 k/uL (0-1.0); Monocytes % (A) 5 %; Neutrophils # (A) 4.6 k/uL (1.3-7.7); Neutrophils % (A) 58 %; Platelet Count 233 k/uL (150-450); RBC 4.41 m/uL (3.80-5.40); RDW 12.7 % (11.5-15.5); WBC 7.8 k/uL (3.8-10.6)
[2019-01-06 08:04] LABS: Calcium 9.3 mg/dL (8.4-10.2); Potassium 4.3 mmol/L (3.5-5.1)
[2019-01-06] MEDS ORDERED: LIDOCAINE 1% INJ 10MG/ML (20 ML MDV) SQ ONE (08:53)
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
[2019-01-06] MEDS: VANCOMYCIN 1,250 MG in SODIUM CHLORIDE 0.9% 250 ML IVPB SCH ×2 (09:21→16:39)
[2019-01-06] MEDS: LORazepam 0.5 MG TAB PO PRN ×2 (09:27→16:21)
[2019-01-06] MEDS: MORPHINE SULFATE 2 MG/ML SYRINGE IVP PRN (10:56)
[2019-01-06 15:32] VITALS: BP 120/76; PULSE 67; TEMP 98.3
--- NOTE | 2019-01-06 17:04 | PN ---
PROGRESS NOTE DATE OF SERVICE: 01/06/2019 This 58-year-old woman was admitted with fall and hematoma also had ulcer. No chest pain. No palpitations. No fever. IV antibiotics arranged outpatient. EXAM: Alert and oriented times three. Pulse 67, blood pressure 120/77, respirations 16, temperature 98.2, pulse ox 94% on room air. HEENT: Conjunctivae normal. NECK: No jugular venous distention. CARDIOVASCULAR: S1, S2 muffled. RESPIRATORY: Breath sounds diminished in the bases. No rhonchi. No crackles. Abdomen is soft, nontender. No mass palpable. Legs no edema. No swelling. CENTRAL NERVOUS SYSTEM: No focal deficits. Ulcer of the right tibia also present. LABS: At this time: CBC noted. ASSESSMENT: 1. Status post fall and hematoma as well as a nonhealing ulcer on the right davis with possible osteomyelitis with the right tibia with MRSA. 2. History of fibromyalgia. 3. Gastroesophageal reflux disease. 4. Status post PICC line. 5. History of degenerative joint disease. 6. History of pneumonia. 7. History of syncope. 8. History of hypotension. 9. History of peripheral neuropathy. 10.History of degenerative joint disease. 11.History of MRSA. 12.History of anxiety, depression, panic disorder, PTSD. 13.History of significant social stressors. RECOMMENDATIONS AND DISCUSSION: Recommend to continue current medications, monitoring, management and symptomatic treatment. Otherwise, we will closely monitor. business applications manager and social work assistant to arrange for IV antibiotics per Infectious Disease. Otherwise, we will continue to monitor. Guarded prognosis. Further recommendations to follow. MMODL / IJN: [id number] /
[2019-01-07] MEDS ORDERED: VANCOMYCIN TROUGH DUE 1 EACH MISC MISCELLANE ONE (08:00)
--- NOTE | 2019-01-09 13:22 | IR ---
PICC LINE PLACEMENT: HISTORY: Infection requiring long-term antibiotic therapy PROCEDURE: Ultrasound and fluoroscopic guidance of PICC line placement. COMPLICATIONS: None ANESTHESIA: 1. 1% Lidocaine locally. FINDINGS/TECHNIQUE: The procedure was explained to the patient. The risks, complications, benefits and alternatives were discussed and any questions were answered. Informed consent was obtained. The patient was placed supine on the fluoroscopic table and prepped and draped in the usual sterile [facility] ion. Utilizing a 21 gauge needle and sonographic and fluoroscopic guidance, access in the vein was achieved and there is placement of a 0.018 guidewire. The vein is patent. A 4-F sheath was placed o jeffrey the guidewire. The guidewire and dilator were removed and a 4-F. PICC line was placed through th e sheath with the tip at the level of the SVC. The sheath was removed, the catheter was flushed and sutured into position. The patient was stable throughout the procedure and remained stable upon disc harge from the Department of Radiology. The vein puncture was patent under ultrasound. A mesa scale image was obtained to document patency of the vein punctured. All elements of the maximal barrier technique were utilized. FLUOROSCOPY TIME: 0.1 minutes, and one image submitted IMPRESSION: Successful PICC line placement under ultrasound and fluoroscopic guidance.
== END 2019-01-06 19:20 | disposition home health service (06) | DRG 593 ==
LOC: EC 13:31 → 4SSUR 16:42 → OBSVTOIN 01-01 10:58
PROVIDERS: ADMIT Internal Medicine; ATTEND Internal Medicine
PROC: 05HY33Z Insertion of Infusion Device into Upper Vein, Percutaneous Approach (ICD-10-PCS; principal; 2019-01-06 09:00)
DX: L97.812 Non-pressure chronic ulcer of other part of right lower leg with fat layer exposed (principal); L03.115 Cellulitis of right lower limb; F33.9 Major depressive disorder, recurrent, unspecified; M86.8X6 Other osteomyelitis, lower leg; E11.42 Type 2 diabetes mellitus with diabetic polyneuropathy; M41.9 Scoliosis, unspecified; E11.69 Type 2 diabetes mellitus with other specified complication; B95.62 Methicillin resistant Staphylococcus aureus infection as the cause of diseases classified elsewhere; F17.200 Nicotine dependence, unspecified, uncomplicated; F41.0 Panic disorder [episodic paroxysmal anxiety]; F43.10 Post-traumatic stress disorder, unspecified; I10 Essential (primary) hypertension; K21.9 Gastro-esophageal reflux disease without esophagitis; M19.90 Unspecified osteoarthritis, unspecified site; M79.7 Fibromyalgia; M54.41 Lumbago with sciatica, right side; Z79.82 Long term (current) use of aspirin; Z79.899 Other long term (current) drug therapy; Z79.1 Long term (current) use of non-steroidal anti-inflammatories (NSAID); Z87.01 Personal history of pneumonia (recurrent); Z90.710 Acquired absence of both cervix and uterus; Z88.0 Allergy status to penicillin; Z91.030 Bee allergy status; Z98.51 Tubal ligation status
CPT/HCPCS: 36415; 36573; 71045; 78315; 80048; 80053; 80202; 83605; 85025; 85610; 86140; 87040; 87070; 87075; 87205; 94640; 96361; 96374; 96375; 99284

== ENCOUNTER 2019-04-07 13:52 | Emergency (ER) | payer OTHER ==
[2019-04-07 14:34] VITALS: TEMP 98.5
[2019-04-07] MEDS ORDERED: KETOROLAC 30 MG/ML 1 ML VIAL IVP STA (15:33)
[2019-04-07] MEDS ORDERED: LORazepam 1 MG TAB PO STA (15:33)
[2019-04-07] MEDS ORDERED: KETOROLAC 60 MG/2 ML VIAL IM STA (15:43)
[2019-04-07 15:45] VITALS: BP 131/92; PULSE 56; RESP 16
[2019-04-07 16:10] LABS: Albumin 4.4 g/dL (3.5-5.0); Calcium 9.9 mg/dL (8.4-10.2); Potassium 4.6 mmol/L (3.5-5.1); Total Bilirubin 0.5 mg/dL (0.2-1.3)
[2019-04-07 16:14] LABS: INR 0.9 (<1.2); Partial Thromboplastin Time 22.2 sec (22.0-30.0); Prothrombin Time 9.6 sec (9.0-12.0)
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
--- NOTE | 2019-04-07 16:33 | XR ---
EXAMINATION TYPE: XR chest 2V DATE OF EXAM: 04/07/2019 COMPARISON: 01/02/2019 INDICATION: Pain TECHNIQUE: Frontal and lateral views of the chest are obtained. FINDINGS: The heart size is normal. The pulmonary vasculature is normal. The lungs are clear. IMPRESSION: 1. No acute pulmonary process.
[2019-04-07 17:27] LABS: Basophils # (A) 0.1 k/uL (0-0.2); Basophils % (A) 1 %; Eosinophils # (A) 1.2 k/uL (0-0.7); Eosinophils % (A) 16 %; HCT 41.6 % (34.0-46.0); HGB 13.6 gm/dL (11.4-16.0); Lymphocytes # (A) 1.9 k/uL (1.0-4.8); Lymphocytes % (A) 25 %; MCH 30.4 pg (25.0-35.0); MCHC 32.8 g/dL (31.0-37.0); MCV 92.5 fL (80.0-100.0); Mean Platelet Volume 7.4; Monocytes # (A) 0.4 k/uL (0-1.0); Monocytes % (A) 5 %; Neutrophils # (A) 3.9 k/uL (1.3-7.7); Neutrophils % (A) 51 %; Platelet Count 283 k/uL (150-450); RBC 4.49 m/uL (3.80-5.40); RDW 13.5 % (11.5-15.5); WBC 7.7 k/uL (3.8-10.6)
== END 2019-04-07 18:22 | disposition home or self-care (01) ==
LOC: EC 13:52
DX: F41.9 Anxiety disorder, unspecified (principal); B02.9 Zoster without complications; F43.0 Acute stress reaction; R07.9 Chest pain, unspecified; R55 Syncope and collapse; M79.7 Fibromyalgia; K21.9 Gastro-esophageal reflux disease without esophagitis; M19.90 Unspecified osteoarthritis, unspecified site; F32.9 Major depressive disorder, single episode, unspecified; F41.0 Panic disorder [episodic paroxysmal anxiety]; F43.10 Post-traumatic stress disorder, unspecified; F17.200 Nicotine dependence, unspecified, uncomplicated; Z86.14 Personal history of Methicillin resistant Staphylococcus aureus infection; Z79.82 Long term (current) use of aspirin; Z79.1 Long term (current) use of non-steroidal anti-inflammatories (NSAID); Z79.899 Other long term (current) drug therapy; Z88.0 Allergy status to penicillin; Z91.030 Bee allergy status; Z53.8 Procedure and treatment not carried out for other reasons
CPT/HCPCS: 36415; 93005; 80053; 83735; 84484; 85025; 85610; 85730; 71046; 99285; 96372; J1885

== ENCOUNTER 2019-04-14 18:57 | Observation (INO) | payer OTHER ==
[2019-04-14] MEDS ORDERED: ASPIRIN 81 MG PO STA (19:22)
[2019-04-14] MEDS ORDERED: NITROGLYCERIN SL TABS 0.4 MG TAB SUBLINGUAL STA ×3 (19:22)
--- NOTE | 2019-04-14 19:27 | ED ---
General Adult HPI - General Chief complaint: Chest Pain Stated complaint: Chest pain Time Seen by Provider: 04/14/19 19:03 Source: patient, RN notes reviewed Mode of arrival: ambulatory Limitations: no limitations - History of Present Illness Initial comments: Patient is a pleasant 58-year-old female presenting to the emergency Department with chest discomfort. Onset of symptoms was a couple hours ago. Patient was at rest. Discomfort is severe. Discomfort feels like an ache. No associated dyspnea, nausea, or diaphoresis. Patient does have increased stress recently as her boyfriend recently . No history of similar symptoms previously. - Related Data Home Medications Medication Instructions Recorded Confirmed Aspirin EC [Ecotrin Low Dose] 81 mg PO DAILY 05/23/18 04/14/19 Gabapentin [Neurontin] 300 mg PO TID 05/23/18 04/14/19 Meloxicam 15 mg PO DAILY 05/23/18 04/14/19 Omeprazole [PriLOSEC] 20 mg PO DAILY 05/23/18 04/14/19 Venlafaxine HCl ER [Effexor XR] 75 mg PO DAILY 05/23/18 04/14/19 Cholecalciferol [Vitamin D3 (25 5,000 unit PO DAILY 12/23/18 04/14/19 Mcg = 1000 Iu)] Cetirizine HCl 10 mg PO DAILY 04/14/19 04/14/19 Previous Rx's Medication Instructions Recorded valACYclovir HCL [Valtrex] 1,000 mg PO Q8HR #21 tab 04/07/19 Allergies Allergy/AdvReac Type Severity Reaction Status Date / Time amoxicillin Allergy Rash/Hives Verified 04/14/19 20:03 bee venom protein (honey bee) Allergy Anaphylaxis Verified 04/14/19 20:03 Penicillins Allergy Rash/Hives Verified 04/14/19 20:03 Review of Systems ROS Statement: Those systems with pertinent positive or pertinent negative responses have been documented in the HPI. ROS Other: All systems not noted in ROS Statement are negative. Constitutional: Denies: fever Eyes: Denies: eye pain ENT: Denies: ear pain Respiratory: Denies: cough Cardiovascular: Reports: as per HPI, chest pain Endocrine: Denies: fatigue Gastrointestinal: Denies: abdominal pain Genitourinary: Denies: dysuria Musculoskeletal: Denies: back pain Skin: Denies: rash Neurological: Denies: weakness Psychiatric: Reports: anxiety Past Medical History Past Medical History: Fibromyalgia, GERD/Reflux, Osteoarthritis (OA), Pneumonia, Syncope Additional Past Medical History / Comment(s): Hypotension, syncopal episodes, severe facial neuropathy, neuropathy bilateral legs/feet, mid to low back pain with right sided sciatica, scoliosis, R foot neuroma, trigger fingers. History of Any Multi-Drug Resistant Organisms: MRSA Date of last positivie culture/infection: 12/23/18 MDRO Source:: MRSA LEG Past Surgical History: Hysterectomy, Tubal Ligation Additional Past Surgical History / Comment(s): left ankle fracture with surgical repair-pt unsure if any hardware, 6 foot surgeries- bunionectomies and R foot neuroma removals Past Anesthesia/Blood Transfusion Reactions: No Reported Reaction, Motion Si ckness Past Psychological History: Anxiety, Depression, Panic Disorder, PTSD Smoking Status: Current every day smoker Past Alcohol Use History: None Reported Past Drug Use History: None Reported - Past Family History Father History Unknown: Yes Additional Family Medical History / Comment(s): Father when pt was 4 yrs old. Mother Additional Family Medical History / Comment(s): Mother is . She had neuropathy and headaches. General Exam Limitations: no limitations General appearance: alert, in no apparent distress Head exam: Present: atraumatic Eye exam: Present: normal appearance, PERRL ENT exam: Present: normal oropharynx Neck exam: Present: normal inspection Respiratory exam: Present: normal lung sounds bilaterally. Absent: chest wall tenderness Cardiovascular Exam: Present: regular rate, normal rhythm Expanded Peripheral pulses: 2+: Radial (R), Radial (L), Posterior Tibialis (R), Posterior Tibialis (L) GI/Abdominal exam: Present: soft. Absent: tenderness Extremities exam: Present: normal inspection. Absent: pedal edema, calf tenderness Neurological exam: Present: alert Psychiatric exam: Present: anxious Skin exam: Present: normal color Course Vital Signs 04/14/19 04/14/19 04/14/19 18:58 19:33 19:40 Temperature 98.3 F 98.4 F Pulse Rate 63 62 Pulse Rate [ 67 [employer] ] Respiratory 22 16 Rate Blood Pressure 130/82 119/79 O2 Sat by Pulse 98 98 Oximetry 04/14/19 20:24 Temperature Pulse Rate 59 L Pulse Rate [ [employer] ] Respiratory 16 Rate Blood Pressure 120/69 O2 Sat by Pulse 100 Oximetry EKG Findings - EKG Comments: EKG Findings:: Normal sinus rhythm 63. GA 148. QRS 74. QT 414. QTC 423. Normal axis. Normal QRS. No acute ST change. Medical Decision Making - Medical Decision Making Patient reevaluated and symptom-free following one nitroglycerin. Patient still feels stressed and anxious however. Patient is updated on results and plan. Case was discussed in detail with Dr. Valerio, who will admit For Dr. Carlson. - Lab Data Result diagrams: 04/14/19 19:25 04/14/19 19:25 Lab Results 04/14/19 04/14/19 04/14/19 Range/Units 19:25 19:25 19:25 WBC 8.2 (3.8-10.6) k/uL RBC 3.92 (3.80-5.40) m/uL Hgb 12.1 (11.4-16.0) gm/dL Hct 36.4 (34.0-46.0) % MCV 92.9 (80.0-100.0) fL MCH 31.0 (25.0-35.0) pg MCHC 33.4 (31.0-37.0) g/dL RDW 14.0 (11.5-15.5) % Plt Count 259 (150-450) k/uL Neutrophils % 39 % Lymphocytes % 31 % Monocytes % 7 % Eosinophils % 19 % Basophils % 1 % Neutrophils # 3.2 (1.3-7.7) k/uL Lymphocytes # 2.6 (1.0-4.8) k/uL Monocytes # 0.5 (0-1.0) k/uL Eosinophils # 1.6 H (0-0.7) k/uL Basophils # 0.1 (0-0.2) k/uL PT 9.7 (9.0-12.0) sec INR 0.9 (<1.2) APTT 25.1 (22.0-30.0) sec Sodium 140 (137-145) mmol/L Potassium 4.1 (3.5-5.1) mmol/L Chloride 111 H (98-107) mmol/L Carbon Dioxide 21 L (22-30) mmol/L Anion Gap 8 mmol/L BUN 22 H (7-17) mg/dL Creatinine 0.81 (0.52-1.04) mg/dL Est GFR (CKD-EPI)AfAm >90 (>60 ml/min/1.73 sqM) Est GFR (CKD-EPI)NonAf 80 (>60 ml/min/1.73 sqM) Glucose 136 H (74-99) mg/dL Calcium 9.6 (8.4-10.2) mg/dL Magnesium 2.1 (1.6-2.3) mg/dL Total Bilirubin 0.3 (0.2-1.3) mg/dL AST 35 (14-36) U/L ALT 28 (9-52) U/L Alkaline Phosphatase 76 (38-126) U/L Troponin I (0.000-0.034) ng/mL Total Protein 6.2 L (6.3-8.2) g/dL Albumin 3.9 (3.5-5.0) g/dL 04/14/19 Range/Units 19:25 WBC (3.8-10.6) k/uL RBC (3.80-5.40) m/uL Hgb (11.4-16.0) gm/dL Hct (34.0-46.0) % MCV (80.0-100.0) fL MCH (25.0-35.0) pg MCHC (31.0-37.0) g/dL RDW (11.5-15.5) % Plt Count (150-450) k/uL Neutrophils % % Lymphocytes % % Monocytes % % Eosinophils % % Basophils % % Neutrophils # (1.3-7.7) k/uL Lymphocytes # (1.0-4.8) k/uL Monocytes # (0-1.0) k/uL Eosinophils # (0-0.7) k/uL Basophils # (0-0.2) k/uL PT (9.0-12.0) sec INR (<1.2) APTT (22.0-30.0) sec Sodium (137-145) mmol/L Potassium (3.5-5.1) mmol/L Chloride (98-107) mmol/L Carbon Dioxide (22-30) mmol/L Anion Gap mmol/L BUN (7-17) mg/dL Creatinine (0.52-1.04) mg/dL Est GFR (CKD-EPI)AfAm (>60 ml/min/1.73 sqM) Est GFR (CKD-EPI)NonAf (>60 ml/min/1.73 sqM) Glucose (74-99) mg/dL Calcium (8.4-10.2) mg/dL Magnesium (1.6-2.3) mg/dL Total Bilirubin (0.2-1.3) mg/dL AST (14-36) U/L ALT (9-52) U/L Alkaline Phosphatase (38-126) U/L Troponin I <0.012 (0.000-0.034) ng/mL Total Protein (6.3-8.2) g/dL Albumin (3.5-5.0) g/dL - Radiology Data Radiology results: image reviewed (Chest x-ray does not reveal acute process) Disposition Clinical Impression: Chest pain Disposition: ADMITTED IP TO THIS [facility] Is patient prescribed a controlled substance at d/c from ED?: No Referrals: Adina Carlson MD [Primary Care Provider] - 1-2 days Decision Time: 20:36
[2019-04-14 19:37] LABS: Basophils # (A) 0.1 k/uL (0-0.2); Basophils % (A) 1 %; Eosinophils # (A) 1.6 k/uL (0-0.7); Eosinophils % (A) 19 %; HCT 36.4 % (34.0-46.0); HGB 12.1 gm/dL (11.4-16.0); Lymphocytes # (A) 2.6 k/uL (1.0-4.8); Lymphocytes % (A) 31 %; MCHC 33.4 g/dL (31.0-37.0); MCV 92.9 fL (80.0-100.0); Mean Platelet Volume 7.2; Monocytes # (A) 0.5 k/uL (0-1.0); Monocytes % (A) 7 %; Neutrophils # (A) 3.2 k/uL (1.3-7.7); Neutrophils % (A) 39 %; Platelet Count 259 k/uL (150-450); RBC 3.92 m/uL (3.80-5.40); WBC 8.2 k/uL (3.8-10.6)
[2019-04-14 19:44] LABS: ALT 28 U/L (9-52); AST 35 U/L (14-36); African American GFR (CKD) >90 (>60 ml/min/1.73 sqM); Albumin 3.9 g/dL (3.5-5.0); Alkaline Phosphatase 76 U/L (38-126); Anion Gap 8 mmol/L; Blood Urea Nitrogen 22 mg/dL (7-17); Calcium 9.6 mg/dL (8.4-10.2); Carbon Dioxide 21 mmol/L (22-30); Chloride 111 mmol/L (98-107); Glucose 136 mg/dL (74-99); Magnesium 2.1 mg/dL (1.6-2.3); Potassium 4.1 mmol/L (3.5-5.1); Sodium 140 mmol/L (137-145); Total Bilirubin 0.3 mg/dL (0.2-1.3); Total Protein 6.2 g/dL (6.3-8.2)
[2019-04-14 19:47] LABS: INR 0.9 (<1.2); Partial Thromboplastin Time 25.1 sec (22.0-30.0); Prothrombin Time 9.7 sec (9.0-12.0)
--- NOTE | 2019-04-14 20:08 | XR ---
EXAMINATION TYPE: XR chest 2V DATE OF EXAM: 04/14/2019 COMPARISON: 04/07/2019 HISTORY: Chest pain TECHNIQUE: Frontal and lateral views of the chest are obtained. FINDINGS: Heart is normal. There is small linear density in the right lower lobe. There is hiatal he rnia. There is no heart failure. There is no pleural effusion. Bones are osteopenic. IMPRESSION: Small hiatal hernia. Subsegmental atelectasis. Normal heart. No acute lung disease. Hiat al hernia appears new compared to old exam.
[2019-04-14] MEDS ORDERED: LORazepam 1 MG TAB PO STA (20:27)
[2019-04-14] MEDS ORDERED: NITROGLYCERIN SL TABS 0.4 MG TAB SUBLINGUAL PRN (20:36)
[2019-04-14] MEDS: GABAPENTIN 300 MG CAP PO SCH (22:45)
[2019-04-14] MEDS: valACYclovir HCL 1,000 MG TABLET PO SCH (22:45)
[2019-04-14] MEDS: NITROGLYCERIN OINT 1 INCH/GM PACKET TOPICAL SCH (22:45)
[2019-04-15 01:02] LABS: Cholesterol 151 mg/dL (<200); HDL Cholesterol 57 mg/dL (40-60); LDL Cholesterol,Calculated 57 mg/dL (0-99); Triglycerides 183 mg/dL (<150)
[2019-04-15 07:03] VITALS: RESP 18
[2019-04-15] MEDS ORDERED: PANTOPRAZOLE 40 MG TABLET PO SCH (07:30)
[2019-04-15] MEDS: NITROGLYCERIN OINT 1 INCH/GM PACKET TOPICAL SCH (07:58)
[2019-04-15] MEDS ORDERED: CALAMINE/ZINC OXIDE LOTION 177 ML BTL TOPICAL PRN (08:52)
[2019-04-15] MEDS ORDERED: CHOLECALCIFEROL 1,000 UNIT TAB PO SCH (09:00)
[2019-04-15] MEDS ORDERED: ASPIRIN 325 MG TAB PO SCH (09:00)
[2019-04-15] MEDS ORDERED: VENLAFAXINE HCL ER 75 MG CAP PO SCH (09:00)
[2019-04-15] MEDS ORDERED: LORATADINE 10 MG TAB PO SCH (09:00)
[2019-04-15] MEDS: GABAPENTIN 300 MG CAP PO SCH (09:17)
[2019-04-15] MEDS: valACYclovir HCL 1,000 MG TABLET PO SCH (09:18)
--- NOTE | 2019-04-15 10:18 | P.CRDCN ---
History of Present Illness History of present illness: This is a pleasant 58-year-old female past medical history significant for shingles, gastroesophageal reflux disease, osteoarthritis, anxiety, depression, panic disorder and chronic nicotine dependence. 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 We have been asked to see her in consultation secondary to chest discomfort. She states starting yesterday morning she developed a sharp discomfort in the left precordial region that was worse with deep inspiration, movement of her torso or pressure on the area. There is no radiation to the arm, back, neck or jaw. She denies associated shortness of breath, dizziness, n ausea, vomiting, palpitations or diaphoresis. She states she unexpectedly lost her significant other last week and has been under significant amount of stress. She does recall moving some furniture recently as well as picking up a fire extinguisher that was too heavy for her and she thinks this is how she may be injured her chest. EKG reveals sinus mechanism with nonspecific T wave abnormalities noted, no acute ST changes. Chest x-ray reveals evidence of a hiatal hernia with no acute cardiopulmonary process. Laboratory data reviewed, WBC 8.2, hemoglobin 12.1, platelets 259, sodium 140, potassium 4.1, creatinine 0.81, magnesium 2.1, cardiac enzymes negative 3, LDL 57 and HDL 57. Current cardiac medications include aspirin 81 mg daily. Most recent echocardiogram obtained May 2018 reveals reserved LV systolic function with ejection fraction greater than 55%. At the time of my exam: CONSTITUTIONAL: Denies fever. Denies chills. EYES: Denies blurred vision. Denies vision changes. Denies eye pain. EARS, NOSE, MOUTH & THROAT: Denies headache. Denies sore throat. Denies ear pain. CARDIOVASCULAR: Complains of musculoskeletal chest pain. Denies shortness of breath. Denies orthopnea. Denies PND. Denies palpitations. RESPIRATORY: Denies cough. GASTROINTESTINAL: Denies abdominal pain. Denies diarrhea. Denies constipation. Denies nausea. Denies vomiting. MUSCULOSKELETAL: Denies myalgias. INTEGUMENTARY: Denies pruitis. Denies rash. NEUROLOGIC: Denies numbness. Denies tingling. Denies weakness. PSYCHIATRIC: Denies anxiety. Denies depression. ENDOCRINE: Denies fatigue. Denies weight change. Denies polydipsia. Denies polyurina. GENITOURINARY: Denies burning, hematuria or urgency with micturation. HEMATOLOGIC: Denies history of anemia. Denies bleeding. Blood pressure 119/65 heart rate 52 afebrile maintaining oxygen saturation on room air GENERAL: This is a 58-year-old female in no apparent distress at the time of my examination. HEENT: Head is atraumatic, normocephalic. Pupils are equal, round. Sclerae anicteric. Conjunctivae are clear. Mucous membranes of the mouth are moist. Neck is supple. There is no jugular venous distention. No carotid bruit is heard. LUNGS: Clear to auscultation no wheezes, rales or rhonchi. No chest wall tenderness is noted on palpation or with deep breathing. HEART: Regular rate and rhythm without murmurs, rubs or gallops. S1 and S2 heard. ABDOMEN: Soft, nontender. Bowel sounds are heard. No organomegaly noted. EXTREMITIES: No evidence of peripheral edema and no calf tenderness noted. VASCULAR: Radial and dorsalis pedis pulses palpated, no evidence of clubbing. NEUROLOGIC: Patient is awake, alert and oriented x3. ASSESSMENT Pleuritic chest pain, atypical for angina. An acute coronary event has been ruled out. Shingles Gastroesophageal reflux disease with evidence of hiatal hernia and recent chest x-ray Chronic nicotine dependence PLAN An acute coronary event has been ruled out. Chest discomfort related to musculo skeletal strain. Recommend anti-inflammatory pain medication as needed. Obtain 2-D echocardiogram and Doppler study to assess cardiac structure and function. Smoking cessation highly recommended. If echocardiogram is normal she may be discharged from a cardiac perspective. Thank you kindly for this consultation. Nurse Practitioner note has been reviewed, I agree with a documented findings and plan of care. Patient was seen and examined. Past Medical History Past Medical History: GERD/Reflux, Osteoarthritis (OA), Pneumonia, Syncope Additional Past Medical History / Comment(s): Hypotension, syncopal episodes, severe facial neuropathy, neuropathy bilateral legs/feet, mid to low back pain with right sided sciatica, scoliosis, R foot neuroma, trigger fingers, bells palsy, shingles History of Any Multi-Drug Resistant Organisms: MRSA Date of last positivie culture/infection: 12/23/18 MDRO Source:: MRSA LEG Past Surgical History: Hysterectomy, Tubal Ligation Additional Past Surgical History / Comment(s): left ankle fracture with surgical repair-pt unsure if any hardware, 6 foot surgeries- bunionectomies and R foot neuroma removals Past Anesthesia/Blood Transfusion Reactions: No Reported Reaction, Motion Sickness Past Psychological History: Anxiety, Depression, Panic Disorder, PTSD Smoking Status: Current every day smoker Past Alcohol Use History: None Reported Additional Past Alcohol Use History / Comment(s): Pt would not state at what age she began smoking only stating that she has smoked on and off for many years. Past Drug Use History: None Reported - Past Family History Father History Unknown: Yes Additional Family Medical History / Comment(s): Father when pt was 4 yrs old. Mother Additional Family Medical History / Comment(s): Mother is . She had neuropathy and headaches. Medications and Allergies Home Medications Medication Instructions Recorded Confirmed Type Aspirin EC [Ecotrin Low Dose] 81 mg PO DAILY 05/23/18 04/14/19 History Gabapentin [Neurontin] 300 mg PO TID 05/23/18 04/14/19 History Meloxicam 15 mg PO DAILY 05/23/18 04/14/19 History Omeprazole [PriLOSEC] 20 mg PO DAILY 05/23/18 04/14/19 History Venlafaxine HCl ER [Effexor XR] 75 mg PO DAILY 05/23/18 04/14/19 History Cholecalciferol [Vitamin D3 (25 5,000 unit PO DAILY 12/23/18 04/14/19 History Mcg = 1000 Iu)] valACYclovir HCL [Valtrex] 1,000 mg PO Q8HR #21 tab 04/07/19 04/14/19 Rx Cetirizine HCl 10 mg PO DAILY 04/14/19 04/14/19 History Allergies Allergy/AdvReac Type Severity Reaction Status Date / Time amoxicillin Allergy Rash/Hives Verified 04/14/19 20:03 bee venom protein (honey bee) Allergy Anaphylaxis Verified 04/14/19 20:03 Penicillins Allergy Rash/Hives Verified 04/14/19 20:03 Physical Exam Vitals: Vital Signs Temp Pulse Pulse Pulse Resp BP BP 04/15/19 06:59 98.1 F 52 L 18 119/65 04/15/19 04:00 98.0 F 72 15 04/15/19 00:00 98.2 F 61 14 04/14/19 21:39 98.2 F 56 L 15 04/14/19 21:09 97.5 F L 50 L 16 121/75 04/14/19 20:24 59 L 16 120/69 04/14/19 19:40 98.4 F 62 16 119/79 04/14/19 19:33 67 04/14/19 18:58 98.3 F 63 22 130/82 BP Pulse Ox 04/15/19 06:59 94 L 04/15/19 04:00 110/62 97 04/15/19 00:00 116/70 98 04/14/19 21:39 117/76 99 04/14/19 21:09 100 04/14/19 20:24 100 04/14/19 19:40 98 04/14/19 19:33 04/14/19 18:58 98 Intake and Output 04/14/19 04/15/19 04/15/19 22:59 06:59 14:59 Intake Total 0 Balance 0 Intake: Oral 0 Other: # Voids 1 Weight 65.771 kg Results 04/14/19 19:25 04/14/19 19:25 Cardiac Enzymes 04/14/19 04/14/19 04/15/19 Range/Units 19:25 19:25 01:58 AST 35 (14-36) U/L Troponin I <0.012 <0.012 (0.000-0.034) ng/mL 04/15/19 Range/Units 06:49 AST (14-36) U/L Troponin I <0.012 (0.000-0.034) ng/mL Coagulation 04/14/19 Range/Units 19:25 PT 9.7 (9.0-12.0) sec APTT 25.1 (22.0-30.0) sec Lipids 04/14/19 Range/Units 19:25 Triglycerides 183 H (<150) mg/dL Cholesterol 151 (<200) mg/dL HDL Cholesterol 57 (40-60) mg/dL CBC 04/14/19 Range/Units 19:25 WBC 8.2 (3.8-10.6) k/uL RBC 3.92 (3.80-5.40) m/uL Hgb 12.1 (11.4-16.0) gm/dL Hct 36.4 (34.0-46.0) % Plt Count 259 (150-450) k/uL Comprehensive Metabolic Panel 04/14/19 Range/Units 19:25 Sodium 140 (137-145) mmol/L Potassium 4.1 (3.5-5.1) mmol/L Chloride 111 H (98-107) mmol/L Carbon Dioxide 21 L (22-30) mmol/L BUN 22 H (7-17) mg/dL Creatinine 0.81 (0.52-1.04) mg/dL Glucose 136 H (74-99) mg/dL Calcium 9.6 (8.4-10.2) mg/dL AST 35 (14-36) U/L ALT 28 (9-52) U/L Alkaline Phosphatase 76 (38-126) U/L Total Protein 6.2 L (6.3-8.2) g/dL Albumin 3.9 (3.5-5.0) g/dL Current Medications Generic Name Dose Route Start Last Admin Trade Name Freq PRN Reason Stop Dose Admin Aspirin 325 mg 04/15/19 09:00 Aspirin PO DAILY [facility] Cholecalciferol 5,000 unit 04/15/19 09:00 Vitamin D3 (25 Mcg = 1000 Iu) PO DAILY [facility] Gabapentin 300 mg 04/14/19 22:00 04/14/19 22:45 Neurontin PO 300 mg TID [facility] Administration Loratadine 10 mg 04/15/19 09:00 Claritin PO DAILY [facility] Nitroglycerin 1 inch 04/15/19 00:00 04/15/19 07:58 Nitro-Bid Oint TOPICAL Not Given Q6HR [facility] Nitroglycerin 0.4 mg 04/14/19 20:36 Nitrostat SUBLINGUAL Q5M PRN Chest Pain Pantoprazole Sodium 40 mg 04/15/19 07:30 Protonix PO DAILY@0730 [facility] Valacyclovir HCl 1,000 mg 04/15/19 00:00 04/14/19 22:45 Valtrex PO 1,000 mg Q8HR [facility] Administration Venlafaxine HCl 75 mg 04/15/19 09:00 Effexor Xr PO DAILY [facility] Intake and Output 04/14/19 04/15/19 04/15/19 22:59 06:59 14:59 Intake Total 0 Balance 0 Intake: Oral 0 Other: # Voids 1 Weight 65.771 kg 04/14/19 19:25 07/15/19 19:25
[2019-04-15] MEDS ORDERED: MELOXICAM 7.5 MG TAB PO SCH (11:00)
[2019-04-15 11:50] VITALS: BP 129/80; PULSE 56; TEMP 98.4
--- NOTE | 2019-04-15 11:51 | ECHOF ---
Referral Reason: MEASUREMENTS -------- HEIGHT: 165.1 cm WEIGHT: 65.8 kg BP: 119/65 RVIDd: 3.0 cm (< 3.3) IVSd: 1.2 cm (0.6 - 1.1) LVIDd: 3.0 cm (3.9 - 5.3) LVPWd: 1.2 cm (0.6 - 1.1) IVSs: 1.5 cm LVIDs: 1.9 cm LVPWs: 1.7 cm LAESV Index (A-L): 21.94 ml/m Ao Diam: 2.5 cm (2.0 - 3.7) AV Cusp: 2.2 cm (1.5 - 2.6) LA Diam: 3.5 cm (2.7 - 3.8) MV EXCURSION: 15.944 mm (> 18.000) MV EF SLOPE: 93 mm/s (70 - 150) EPSS: 0.8 cm MV E Adebayo: 0.88 m/s MV DecT: 223 ms MV A Adebayo: 0.53 m/s MV E/A Ratio: 1.65 FINDINGS -------- Sinus rhythm. This was a technically good study. The left ventricular size is normal. There is mild concentric left ventricular hypertrophy. Overa ll left ventricular systolic function is normal with, an EF between 60 - 65 %. The diastolic fillin g pattern is normal for the age of the patient 8.74. The right ventricle is normal in size. Normal LA size by volume 22+/-6 ml/m2. The right atrial size is normal. Interatrial and interventricular septum intact. The aortic valve is trileaflet and appears structurally normal. There is no evidence of aortic regu rgitation. There is no evidence of aortic stenosis. The mitral valve is normal. Mild mitral annular calcification present. There is trace mitral regu rgitation. Trace tricuspid regurgitation present. There is no evidence of pulmonary hypertension. There is no pulmonic regurgitation present. The aortic root size is normal. Normal inferior vena cava with normal inspiratory collapse consistent with estimated right atrial pre ssure of 5 mmHg. There is no pericardial effusion. CONCLUSIONS -------- 1. Sinus rhythm. 2. This was a technically good study. 3. The left ventricular size is normal. 4. There is mild concentric left ventricular hypertrophy. 5. Overall left ventricular systolic function is normal with, an EF between 60 - 65 %. 6. The diastolic filling pattern is normal for the age of the patient 8.74 7. The right ventricle is normal in size. 8. Normal LA size by volume 22+/-6 ml/m2. 9. The right atrial size is normal. 10. Interatrial and interventricular septum intact. 11. The aortic valve is trileaflet and appears structurally normal. 12. There is no evidence of aortic regurgitation. 13. There is no evidence of aortic stenosis. 14. The mitral valve is normal. 15. Mild mitral annular calcification present. 16. There is trace mitral regurgitation. 17. Trace tricuspid regurgitation present. 18. There is no evidence of pulmonary hypertension. 19. There is no pulmonic regurgitation present. 20. The aortic root size is normal. 21. Normal inferior vena cava with normal inspiratory collapse consistent with estimated right atrial pressure of 5 mmHg. 22. There is no pericardial effusion. DEAN OF GRADUATE STUDIES: Mirella Barr RDCS
--- NOTE | 2019-04-15 23:02 | P.HPIM ---
History of Present Illness H&P Date: 04/15/19 Chief Complaint: Chest pain History of presenting complaint: This is a 58-year-old patient who has followed with Dr. Macie Carlson. Chronic stable medical conditions include fibromyalgia, GERD, peripheral neuropathy, anxiety, PTSD. Patient few weeks ago had ostomy mellitus of the right davis following a local blunt injury and was treated with 8 weeks of antibiotic. She did grow MRSA. She presented with chest pain. It is across the chest and both the sides. Worse with deep breath and worse with moving her body about. It is reproducible. Does not radiate to the neck or arm. Not related to activity. Patient has a follow-up with Teri for family members. Her boyfriend 1 week ago. 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 She has a dog there. And she wanted to leave camp attendant because she is afraid her friend will get evicted ill-defined about the dog being there. Because of the chest pain can't RG was consulted. She'll brought in. Patient 3 days ago he lifted a heavy fire hydrant about 40 pounds. And she thinks her chest pain is coming because of the same. She also does not want to see her family doctor Dr. Carlson who she only saw once. Finished patient is very restless and agitated during the interview and keeps moving about. Very keen to leave. Review of systems: GEN.: None EYES: None HEENT: None NECK: None RESPIRATORY: None CARDIOVASCULAR: None GASTROINTESTINAL: None GENITOURINARY: None MUSCULOSKELETAL: As above LYMPHATICS: None HEMATOLOGICAL: None PSYCHIATRY: Anxious NEUROLOGICAL: Numbness tingling in the feet Past medical history: Fibromyalgia, GERD, peripheral neuropathy, anxiety, PTSD, recent MRSA infection of the right davis from trauma Social history: Patient has a follow-up for several of her family members. 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 Was living with her boyfriend. A week ago. Not employed Family history: Patient cannot tell. Physical examination: VITAL SIGNS: 98.3, 63, 22, 130/82, 98% room air GENERAL: Average built, sitting up, restless. EYES: Pupils equal. Conjunctiva normal. HEENT: External appearance of nose and ears normal, oral cavity grossly normal. NECK: JVD not raised; masses not palpable. HEART: First and second heart sounds are normal; no edema. LUNGS: Respiratory rate normal; clear to auscultation. ABDOMEN: Soft, nontender, liver spleen not palpable, no masses palpable. PSYCH: [Alert and oriented x3; mood and affect very anxious l. NEUROLOGICAL: Cranial nerves grossly intact; no facial asymmetry, power and sensation grossly intact. LYMPHATICS: No lymph nodes palpable in the axilla and neck MUSCULOSKELETAL: Reproducible pain at the costochondral junction Investigations: White count 8.2 hemoglobin 12.1 potassium 4.1 bun 22 creatinine 0.81 Troponin 3 negative EKG tracing personally reviewed by me shows normal sinus rhythm Chest x-ray film personally reviewed by me no obvious infiltrates Assessment: -Anterior chest wall pain likely costochondral in nature from lifting a heavy fire hydrant. Is tender in both the costochondral region. Reproducible. Cardiology was consulted to rule out a cardiac cause -Chronic fibromyalgia -GERD -Idiopathic peripheral neuropathy -Anxiety not otherwise specified somewhat uncontrolled including social stre ssors -PTSD -Chronic nicotine dependence patient cigarette smoker Plan: Cardiology was consulted. They did order 2-D echocardiogram. Patient was told to use NSAIDs and also use a heating pad. Patient extremely anxious and agitated to leave and she was taken care of her dog. Smoke cessation counseling: This was done at length with the patient. She is agreed to take a nicotine patch. When she goes on. More than 3 minutes was spent on this aspect of the case. Past Medical History Past Medical History: GERD/Reflux, Osteoarthritis (OA), Pneumonia, Syncope Additional Past Medical History / Comment(s): Hypotension, syncopal episodes, severe facial neuropathy, neuropathy bilateral legs/feet, mid to low back pain with right sided sciatica, scoliosis, R foot neuroma, trigger fingers, bells palsy, shingles History of Any Multi-Drug Resistant Organisms: MRSA Date of last positivie culture/infection: 12/23/18 MDRO Source:: MRSA LEG Past Surgical History: Hysterectomy, Tubal Ligation Additional Past Surgical History / Comment(s): left ankle fracture with surgical repair-pt unsure if any hardware, 6 foot surgeries- bunionectomies and R foot neuroma removals Past Anesthesia/Blood Transfusion Reactions: No Reported Reaction, Motion Sickness Past Psychological History: Anxiety, Depression, Panic Disorder, PTSD Smoking Status: Current every day smoker Past Alcohol Use History: None Reported Additional Past Alcohol Use History / Comment(s): Pt would not state at what age she began smoking only stating that she has smoked on and off for many years. Past Drug Use History: None Reported - Past Family History Father History Unknown: Yes Additional Family Medical History / Comment(s): Father when pt was 4 yrs old. Mother Additional Family Medical History / Comment(s): Mother is . She had neuropathy and headaches. Medications and Allergies Home Medications Medication Instructions Recorded Confirmed Type Aspirin EC [Ecotrin Low Dose] 81 mg PO DAILY 05/23/18 04/14/19 History Gabapentin [Neurontin] 300 mg PO TID 05/23/18 04/14/19 History Meloxicam 15 mg PO DAILY 05/23/18 04/14/19 History Omeprazole [PriLOSEC] 20 mg PO DAILY 05/23/18 04/14/19 History Venlafaxine HCl ER [Effexor XR] 75 mg PO DAILY 05/23/18 04/14/19 History Cholecalciferol [Vitamin D3 (25 5,000 unit PO DAILY 12/23/18 04/14/19 History Mcg = 1000 Iu)] valACYclovir HCL [Valtrex] 1,000 mg PO Q8HR #21 tab 04/07/19 04/14/19 Rx Cetirizine HCl 10 mg PO DAILY 04/14/19 04/14/19 History Calamine/Zinc Oxide Lotion 1 applic TOPICAL QID PRN applic 04/15/19 Rx [Calamine Lotion] Allergies Allergy/AdvReac Type Severity Reaction Status Date / Time amoxicillin Allergy Rash/Hives Verified 04/14/19 20:03 bee venom protein (honey bee) Allergy Anaphylaxis Verified 04/14/19 20:03 Penicillins Allergy Rash/Hives Verified 04/14/19 20:03 Physical Exam Vitals: Vital Signs Temp Pulse Pulse Pulse Resp BP BP 04/15/19 11:00 98.4 F 56 L 18 04/15/19 06:59 98.1 F 52 L 18 119/65 04/15/19 04:00 98.0 F 72 15 04/15/19 00:00 98.2 F 61 14 04/14/19 21:39 98.2 F 56 L 15 04/14/19 21:09 97.5 F L 50 L 16 121/75 04/14/19 20:24 59 L 16 120/69 04/14/19 19:40 98.4 F 62 16 119/79 04/14/19 19:33 67 04/14/19 18:58 98.3 F 63 22 130/82 BP Pulse Ox 04/15/19 11:00 129/80 97 04/15/19 06:59 94 L 04/15/19 04:00 110/62 97 04/15/19 00:00 116/70 98 04/14/19 21:39 117/76 99 04/14/19 21:09 100 04/14/19 20:24 100 04/14/19 19:40 98 04/14/19 19:33 04/14/19 18:58 98 Intake and Output 04/14/19 04/15/19 04/15/19 22:59 06:59 14:59 Intake Total 0 Balance 0 Intake: Oral 0 Other: # Voids 1 1 Weight 65.771 kg Results CBC & Chem 7: 04/14/19 19:25 04/14/19 19:25 Labs: Abnormal Lab Results - Last 24 Hours (Table) 04/14/19 04/14/19 04/14/19 Range/Units 19:25 19:25 19:25 Eosinophils # 1.6 H (0-0.7) k/uL Chloride 111 H (98-107) mmol/L Carbon Dioxide 21 L (22-30) mmol/L BUN 22 H (7-17) mg/dL Glucose 136 H (74-99) mg/dL Total Protein 6.2 L (6.3-8.2) g/dL Triglycerides 183 H (<150) mg/dL Thrombosis Risk Factor Assmnt - Choose All That Apply Any of the Below Risk Factors Present?: Yes Each Factor Represents 1 point: Age 41-60 years Other Risk Factors: No Thrombosis Risk Factor Assessment Total Risk Factor Score: 1 Thrombosis Risk Factor Assessment Level: Low Risk
--- NOTE | 2019-04-15 23:19 | P.DS ---
Providers Date of admission: 04/14/19 20:36 Expected date of discharge: 04/15/19 Attending physician: Anselmo Valerio Consults: 04/14/19 20:36 Consult Physician Urgent Consulting Provider: Jani Chamberlain Consult Reason/Comments: cp Do you want consulting provider notified?: Yes 04/15/19 10:52 Consult Physician Routine Consulting Provider: Sharon Marcelo Consult Reason/Comments: labile mood, agitation Do you want consulting provider notified?: Yes Primary care physician: Adina Carlson [facility] Course: History of presenting complaint: This is a 58-year-old patient who has followed with Dr. Macie Carlson. Chronic stable medical conditions include fibromyalgia, GERD, peripheral neuropathy, anxiety, PTSD. Patient few weeks ago had ostomy mellitus of the right davis following a local blunt injury and was treated with 8 weeks of antibiotic. She did grow MRSA. She presented with chest pain. It is across the chest and both the sides. Worse with deep breath and worse with moving her body about. It is reproducible. Does not radiate to the neck or arm. Not related to activity. Patient has a follow-up with Teri for family members. Her boyfriend 1 week ago. 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 She has a dog there. And she wanted to leave budget specialist because she is afraid her friend will get evicted ill-defined about the dog being there. Because of the chest pain can't RG was consulted. She'll brought in. Patient 3 days ago he lifted a heavy fire hydrant about 40 pounds. And she thinks her chest pain is coming because of the same. She also does not want to see her family doctor Dr. Carlson who she only saw once. Finished patient is very restless and agitated during the interview and keeps moving about. Very keen to leave. Patient was seen by cardiology. TO be discharged. Her chest pain is felt to be musculoskeletal. Reproducible. Consultation: Dr. MALLORY Peter from cardiology Physical examination: VITAL SIGNS: 98.4, 56, 18, 129/80, 97% room air GENERAL: Average built, sitting up, restless. EYES: Pupils equal. Conjunctiva normal. HEENT: External appearance of nose and ears normal, oral cavity grossly normal. NECK: JVD not raised; masses not palpable. HEART: First and second heart sounds are normal; no edema. LUNGS: Respiratory rate normal; clear to auscultation. ABDOMEN: Soft, nontender, liver spleen not palpable, no masses palpable. PSYCH: [Alert and oriented x3; mood and affect very anxious l. MUSCULOSKELETAL: Reproducible pain at the costochondral junction Investigations: White count 8.2 hemoglobin 12.1 potassium 4.1 bun 22 creatinine 0.81 Troponin 3 negative EKG tracing personally reviewed by me shows normal sinus rhythm Chest x-ray film personally reviewed by me no obvious infiltrates 2-D echo shows EF of 60-65% Assessment: -Anterior chest wall pain likely costochondral in nature from lifting a heavy fire hydrant. Is tender in both the costochondral region. Reproducible. -Chronic fibromyalgia -GERD -Idiopathic peripheral neuropathy -Anxiety not otherwise specified somewhat uncontrolled including social stressors -PTSD -Chronic nicotine dependence patient cigarette smoker Disposition: Home Patient Condition at Discharge: Stable Plan - Discharge Summary New Discharge Prescriptions: New Calamine/Zinc Oxide Lotion [Calamine Lotion] 1 applic TOPICAL QID PRN applic PRN Reason: Skin Irritation Continue Venlafaxine HCl ER [Effexor XR] 75 mg PO DAILY Omeprazole [PriLOSEC] 20 mg PO DAILY Meloxicam 15 mg PO DAILY Gabapentin [Neurontin] 300 mg PO TID Aspirin EC [Ecotrin Low Dose] 81 mg PO DAILY Cholecalciferol [Vitamin D3 (25 Mcg = 1000 Iu)] 5,000 unit PO DAILY valACYclovir HCL [Valtrex] 1,000 mg PO Q8HR #21 tab Cetirizine HCl 10 mg PO DAILY Discharge Medication List Aspirin EC [Ecotrin Low Dose] 81 mg PO DAILY 05/23/18 [History] Gabapentin [Neurontin] 300 mg PO TID 05/23/18 [History] Meloxicam 15 mg PO DAILY 05/23/18 [History] Omeprazole [PriLOSEC] 20 mg PO DAILY 05/23/18 [History] Venlafaxine HCl ER [Effexor XR] 75 mg PO DAILY 05/23/18 [History] Cholecalciferol [Vitamin D3 (25 Mcg = 1000 Iu)] 5,000 unit PO DAILY 12/23/18 [History] valACYclovir HCL [Valtrex] 1,000 mg PO Q8HR #21 tab 04/07/19 [Rx] Cetirizine HCl 10 mg PO DAILY 04/14/19 [History] Calamine/Zinc Oxide Lotion [Calamine Lotion] 1 applic TOPICAL QID PRN applic 04/15/19 [Rx] Follow up Appointment(s)/Referral(s): Adina Carlson MD [Primary Care Provider] - 1-2 days (Please call and make follow up appointment. ) Patient Instructions/Handouts: Chest Pain (DC) Discharge Disposition: Left Against Medical Advice
[2019-04-16] MEDS ORDERED: ASPIRIN 81 MG PO SCH (09:00)
== END 2019-04-15 14:07 | disposition left against medical advice (07) ==
LOC: EC 18:57 → 1SOBS 20:36 → 3SCARD 04-15 10:02
PROVIDERS: ADMIT Hospitalist; ATTEND Hospitalist
DX: R07.89 Other chest pain (principal); M79.7 Fibromyalgia; K21.9 Gastro-esophageal reflux disease without esophagitis; G60.9 Hereditary and idiopathic neuropathy, unspecified; F17.210 Nicotine dependence, cigarettes, uncomplicated; M54.41 Lumbago with sciatica, right side; G51.0 Bell's palsy; F43.10 Post-traumatic stress disorder, unspecified; F41.0 Panic disorder [episodic paroxysmal anxiety]; F32.9 Major depressive disorder, single episode, unspecified; M19.90 Unspecified osteoarthritis, unspecified site; K44.9 Diaphragmatic hernia without obstruction or gangrene; Z91.030 Bee allergy status; Z88.0 Allergy status to penicillin; Z87.828 Personal history of other (healed) physical injury and trauma; Z86.14 Personal history of Methicillin resistant Staphylococcus aureus infection; Z87.01 Personal history of pneumonia (recurrent); Z86.19 Personal history of other infectious and parasitic diseases; Z79.1 Long term (current) use of non-steroidal anti-inflammatories (NSAID); Z79.899 Other long term (current) drug therapy; Z79.82 Long term (current) use of aspirin; Z82.0 Family history of epilepsy and other diseases of the nervous system
CPT/HCPCS: 99285; 36415; 93005; 93306; 80061; 80053; 83735; 84484 ×2; 85025; 85610; 85730; 71046; G0378 ×2

== ENCOUNTER 2019-04-22 00:31 | Emergency (ER) | payer OTHER ==
[2019-04-22 00:42] VITALS: BP 101/50; PULSE 69; RESP 20; TEMP 98
--- NOTE | 2019-04-22 01:21 | ED ---
Anxiety HPI - General Chief Complaint: Anxiety Stated Complaint: group home clearance Time Seen by Provider: 04/22/19 00:50 Source: police, EMS Mode of arrival: EMS - History of Present Illness Initial Comments: 58-year-old female patient is brought into the emergency department by [facility] for medical clearance. Patient had called the police because she was cold and sleeping outside tonight. States when they arrived they found she had a warrant for her arrest. fisheries technical officer states that at the time of arrest patient reported that she started to have chest pain. Patient states that she is feeling anxious and sad because her boyfriend at the beginning of this month. Patient denies any current physical symptoms or concerns. She is reporting suicidal ideation with a possible plan to jump in the [place]ers. She denies any history of suicide attempt. States that she does not see a counselor. States she is currently homeless until she receives her social security check. Patient denies any recent rash, fever, chills, shortness breath, chest pain, abdominal pain, nausea, vomiting, diarrhea, constipation, back pain, numbness, tingling, dizziness, weakness, hematuria, dysuria, urinary urgency, urinary frequency, headache, visual changes, or any other complaints. - Related Data Home Medications: Home Medications Medication Instructions Recorded Confirmed Aspirin EC [Ecotrin Low Dose] 81 mg PO DAILY 05/23/18 04/14/19 Gabapentin [Neurontin] 300 mg PO TID 05/23/18 04/14/19 Meloxicam 15 mg PO DAILY 05/23/18 04/14/19 Omeprazole [PriLOSEC] 20 mg PO DAILY 05/23/18 04/14/19 Venlafaxine HCl ER [Effexor XR] 75 mg PO DAILY 05/23/18 04/14/19 Cholecalciferol [Vitamin D3 (25 5,000 unit PO DAILY 12/23/18 04/14/19 Mcg = 1000 Iu)] Cetirizine HCl 10 mg PO DAILY 04/14/19 04/14/19 Previous Rx's Medication Instructions Recorded valACYclovir HCL [Valtrex] 1,000 mg PO Q8HR #21 tab 04/07/19 Calamine/Zinc Oxide Lotion 1 applic TOPICAL QID PRN applic 04/15/19 [Calamine Lotion] Allergies/Adverse Reactions: Allergies Allergy/AdvReac Type Severity Reaction Status Date / Time amoxicillin Allergy Rash/Hives Verified 04/14/19 20:03 bee venom protein (honey bee) Allergy Anaphylaxis Verified 04/14/19 20:03 Penicillins Allergy Rash/Hives Verified 04/14/19 20:03 Review of Systems ROS Statement: Those systems with pertinent positive or pertinent negative responses have been documented in the HPI. ROS Other: All systems not noted in ROS Statement are negative. Past Medical History Past Medical History: GERD/Reflux, Osteoarthritis (OA), Pneumonia, Syncope Additional Past Medical History / Comment(s): Hypotension, syncopal episodes, severe facial neuropathy, neuropathy bilateral legs/feet, mid to low back pain with right sided sciatica, scoliosis, R foot neuroma, trigger fingers, bells palsy, shingles History of Any Multi-Drug Resistant Organisms: MRSA Date of last positivie culture/infection: 12/23/18 MDRO Source:: MRSA LEG Past Surgical History: Hysterectomy, Tubal Ligation Additional Past Surgical History / Comment(s): left ankle fracture with surgical repair-pt unsure if any hardware, 6 foot surgeries- bunionectomies and R foot neuroma removals Past Anesthesia/Blood Transfusion Reactions: No Reported Reaction, Motion Sickness Past Psychological History: Anxiety, Depression, Panic Disorder, PTSD Smoking Status: Current every day smoker Past Alcohol Use History: None Reported Past Drug Use History: None Reported - Past Family History Father History Unknown: Yes Additional Family Medical History / Comment(s): Father when pt was 4 yrs old. Mother Additional Family Medical History / Comment(s): Mother is . She had neuropathy and headaches. General Exam Limitations: no limitations General appearance: alert, in no apparent distress, other (Physical well- developed, well-nourished adult female patient who is quite anxious at this time. Vital signs upon presentation are temperature 98.0F, pulse 69, respirations 20, blood pressure 101/50, pulse ox 99% on room air.) Eye exam: Present: normal appearance, PERRL, EOMI. Absent: scleral icterus, conjunctival injection, periorbital swelling ENT exam: Present: normal exam, normal oropharynx, mucous membranes moist Respiratory exam: Present: normal lung sounds bilaterally. Absent: respiratory distress, wheezes, rales, rhonchi, stridor Cardiovascular Exam: Present: regular rate, normal rhythm, normal heart sounds. Absent: systolic murmur, diastolic murmur, rubs, gallop, clicks GI/Abdominal exam: Present: soft, normal bowel sounds. Absent: distended, tenderness, guarding, rebound, rigid Neurological exam: Present: alert, oriented X3, CN II-XII intact Psychiatric exam: Present: agitated, anxious, suicidal ideation. Absent: homicidal ideation Skin exam: Present: warm, dry, intact, normal color. Absent: rash Course Vital Signs 04/22/19 00:34 Temperature 98 F Pulse Rate 69 Respiratory 20 Rate Blood Pressure 101/50 O2 Sat by Pulse 99 Oximetry Medical Decision Making - Medical Decision Making 58-year-old female patient presented to the emergency department today for medical clearance. Once patient was being arrested she began to have chest pain. Patient did not complain of chest pain during my physical exam or history taking. She reports some suicidal ideation. Physical examination is unremarkable. EKG showed normal sinus rhythm. Patient was seen and evaluated here a few days ago for chest pain and she was cleared by cardiology. She will be discharged into custody of the police. - EKG Data -: EKG Interpreted by Me EKG Comments: EKG obtained at 0109 shows normal sinus rhythm with a ventricular rate is 73, HI interval 116, QRS duration 78, QT 408, QTC 449. No evidence of ST elevation or depression. Disposition Clinical Impression: Anxiety, Homelessness Disposition: HOME SELF-CARE Condition: Good Instructions (If sedation given, give patient instructions): Anxiety (ED) Additional Instructions: Follow up with your primary care physician for recheck as soon as possible. Return to the emergency department for any new, worsening, or concerning symptoms. Is patient prescribed a controlled substance at d/c from ED?: No Referrals: Adina Carlson MD [Primary Care Provider] - 1-2 days Time of Disposition: 01:21
== END 2019-04-22 01:28 | disposition home or self-care (01) ==
LOC: EC 00:31
DX: F41.9 Anxiety disorder, unspecified (principal); Z59.0 Homelessness; R45.851 Suicidal ideations; R45.1 Restlessness and agitation; K21.9 Gastro-esophageal reflux disease without esophagitis; M19.90 Unspecified osteoarthritis, unspecified site; F32.9 Major depressive disorder, single episode, unspecified; G51.0 Bell's palsy; F17.200 Nicotine dependence, unspecified, uncomplicated; Z88.0 Allergy status to penicillin; Z91.030 Bee allergy status; Z79.82 Long term (current) use of aspirin; Z79.1 Long term (current) use of non-steroidal anti-inflammatories (NSAID); Z79.899 Other long term (current) drug therapy; Z86.14 Personal history of Methicillin resistant Staphylococcus aureus infection; Z63.4 Disappearance and death of family member
CPT/HCPCS: 93005; 99283

== ENCOUNTER 2024-04-18 19:51 | Observation (INO) | payer OTHER ==
--- NOTE | 2024-04-18 20:48 | ED ---
General Adult HPI - General Chief complaint: Psychiatric Symptoms Stated complaint: PETITION Time Seen by Provider: 04/18/24 20:43 Source: patient, RN notes reviewed Mode of arrival: EMS - History of Present Illness Initial comments: 63-year-old female presenting via EMS for mental health evaluation. Patient left [facility] yesterday with lumbar fracture of L3 and L5 that they recommended surgery. Patient states she left because she needed to put down a security deposit on an apartment. Police Department reports that she was found wandering and following around [place] for the past day. They report they received multiple 911 calls about patient laying in their yard. She has also been making statements such as "things would be better off if I fell and hit my head and ". Patient is currently complaining of back pain. Denies suicidal or homicidal ideations currently. Patient is extremely uncooperative and would not provide any other history. - Related Data Home Medications Medication Instructions Recorded Confirmed Aspirin EC [Ecotrin Low Dose] 81 mg PO DAILY 05/23/18 04/14/19 Gabapentin [Neurontin] 300 mg PO TID 05/23/18 04/14/19 Meloxicam 15 mg PO DAILY 05/23/18 04/14/19 Omeprazole [PriLOSEC] 20 mg PO DAILY 05/23/18 04/14/19 Venlafaxine HCl ER [Effexor XR] 75 mg PO DAILY 05/23/18 04/14/19 Cholecalciferol [Vitamin D3 (25 5,000 unit PO DAILY 12/23/18 04/14/19 Mcg = 1000 Iu)] Cetirizine HCl 10 mg PO DAILY 04/14/19 04/14/19 Previous Rx's Medication Instructions Recorded valACYclovir HCL [Valtrex] 1,000 mg PO Q8HR #21 tab 04/07/19 Calamine/Zinc Oxide Lotion 1 applic TOPICAL QID PRN applic 04/15/19 [Calamine Lotion] Allergies Allergy/AdvReac Type Severity Reaction Status Date / Time amoxicillin Allergy Rash/Hives Verified 04/18/24 19:58 bee venom protein (honey bee) Allergy Anaphylaxis Verified 04/18/24 19:58 Penicillins Allergy Rash/Hives Verified 04/18/24 19:58 Review of Systems ROS Statement: Those systems with pertinent positive or pertinent negative responses have been documented in the HPI. ROS Other: All systems not noted in ROS Statement are negative. Past Medical History Past Medical History: GERD/Reflux, Osteoarthritis (OA), Pneumonia, Syncope Additional Past Medical History / Comment(s): Hypotension, syncopal episodes, severe facial neuropathy, neuropathy bilateral legs/feet, mid to low back pain with right sided sciatica, scoliosis, R foot neuroma, trigger fingers, bells palsy, shingles History of Any Multi-Drug Resistant Organisms: MRSA Date of last positivie culture/infection: 12/23/18 MDRO Source:: MRSA LEG Past Surgical History: Hysterectomy, Tubal Ligation Additional Past Surgical History / Comment(s): left ankle fracture with surgical repair-pt unsure if any hardware, 6 foot surgeries- bunionectomies and R foot neuroma removals Past Anesthesia/Blood Transfusion Reactions: No Reported Reaction, Motion Sickness Past Psychological History: Anxiety, Depression, Panic Disorder, PTSD Smoking Status: Current every day smoker Past Alcohol Use History: None Reported Past Drug Use History: Marijuana - Past Family History Father History Unknown: Yes Additional Family Medical History / Comment(s): Father when pt was 4 yrs old. Mother Additional Family Medical History / Comment(s): Mother is . She had neuropathy and headaches. General Exam Limitations: no limitations General appearance: alert, in no apparent distress Head exam: Present: atraumatic, normocephalic, normal inspection Respiratory exam: Present: other (Patient refused hands-on physical exam) Extremities exam: Present: normal inspection Neurological exam: Present: alert, oriented X3 Psychiatric exam: Present: normal affect, normal mood Skin exam: Present: warm, dry, intact, normal color. Absent: rash Course Vital Signs 04/18/24 04/18/24 19:54 22:31 Temperature 98.3 F Pulse Rate 58 L 54 L Respiratory 16 17 Rate Blood Pressure 141/86 118/68 O2 Sat by Pulse 98 96 Oximetry EKG Findings - EKG Results: EKG: interpreted by ERMD (EKG reveals sinus bradycardia with no ST changes. Ventricular rate 54 bpm, DE interval 161, QRS duration 76, QT/QTc 448/433.) Medical Decision Making - Medical Decision Making Was pt. sent in by a medical professional or institution (, PA, GOLD NIB GRINDER, urgent care, hospital, or intermediate...) When possible be specific @ -Brought in via EMS with [facility] Did you speak to anyone other than the patient for history (EMS, parent, family, police, friend...)? What history was obtained from this source @ -No Did you review nursing and triage notes (agree or disagree)? Why? @ -I reviewed and agree with nursing and triage notes Were old charts reviewed (outside hosp., previous admission, EMS record, old EKG, old radiological studies, urgent care reports/EKG's, intermediate records)? Report findings @ -No old charts were reviewed Differential Diagnosis (chest pain, altered mental status, abdominal pain women, abdominal pain men, vaginal bleeding, weakness, fever, dyspnea, syncope, headache, dizziness, GI bleed, back pain, seizure, CVA, palpatations, mental health, musculoskeletal)? @ -Differential Mental Health Depression, anxiety, bipolar, psychosis, schizophrenia, borderline personality, situational depression, adjustment disorder, behavioral disorder, brain tumor, malingering, substance abuse, encephalopathy, medication reaction, dementia, hypothyroidism, degenerative neurologic disorder, lupus.... This is not meant to be all-inclusive list EKG interpreted by me (3pts min.). @ -As above X-rays interpreted by me (1pt min.). @ -Chest x-ray revealed concern for bronchitis with pneumonitis, may be infectious or inflammatory etiology, no consolidation or pleural effusion CT interpreted by me (1pt min.). @ -CT of head performed and revealed no evidence of acute intracranial etiology U/S interpreted by me (1pt. min.). @ -None done What testing was considered but not performed or refused? (CT, X-rays, U/S, labs)? Why? @ -None What meds were considered but not given or refused? Why? @ -None Did you discuss the management of the patient with other professionals (professionals i.e. , PA, GOLD NIB GRINDER, lab, RT, psych nurse, social media marketing manager, venetian blind machine operator, teacher, credit risk officer, supportive employment case manager)? Give summary @ -EMH was paged regarding admission Was smoking cessation discussed for >3mins.? @ -No Was critical care preformed (if so, how long)? @ -No Were there social determinants of health that impacted care today? How? (Homeles sness, low income, unemployed, alcoholism, drug addiction, transportation, low edu. Level, literacy, decrease access to med. care, correction, rehab)? @ -No Was there de-escalation of care discussed even if they declined (Discuss DNR or withdrawal of care, Hospice)? DNR status @ -No What co-morbidities impacted this encounter? (DM, HTN, Smoking, COPD, CAD, Cancer, CVA, ARF, Chemo, Hep., AIDS, mental health diagnosis, sleep apnea, morbid obesity)? @ -None Was patient admitted / discharged? Hospital course, mention meds given and route, prescriptions, significant lab abnormalities, going to OR and other pertinent info. @ -Patient was admitted. Patient was seen and evaluated for mental health evaluation, petition by [facility]'s department. Patient has been wandering and following around [place], there were several police reports made of patient laying in front yards. Patient was also making comments to suggest suicidal ideation such as "if I it would not matter". Patient left [facility] yesterday AMA after being diagnosed with lumbar fracture at L3 and L5, they told her they wanted to perform surgery however patient left AMA. Patient is very uncooperative for history and examination. Broad workup performed to rule out medical cause of altered mental status such as CT of head, basic lab work, chest x-ray, and EKG, which is remarkable for chest x-ray revealing bronchitis with pneumonitis and right blood cell count of 10.7. Urine drug screen is positive for opiates, tricyclic antidepressants, benzodiazepines, and marijuana. Patient is complaining of back pain and is given IV morphine and Zofran for pain and nausea. Patient was admitted for pain control for lumbar fractures with psych consult. Case was discussed with my ED attending Dr. Stevens. Undiagnosed new problem with uncertain prognosis? @ -No Drug Therapy requiring intensive monitoring for toxicity (Heparin, Nitro, Insulin, Cardizem)? @ -No Were any procedures done? @ -No Diagnosis/symptom? @ -Lumbar fractures, suicidal ideation Acute, or Chronic, or Acute on Chronic? @ -Acute Uncomplicated (without systemic symptoms) or Complicated (systemic symptoms)? @ -Uncomplicated Side effects of treatment? @ -No Exacerbation, Progression, or Severe Exacerbation? @ -No Poses a threat to life or bodily function? How? (Chest pain, USA, ND, pneumonia, PE, COPD, DKA, ARF, appy, cholecystitis, CVA, Diverticulitis, Homicidal, Suicidal, threat to staff... and all critical care pts) @ -Yes - Lab Data Result diagrams: 04/18/24 21:04/18/24 21: Lab Results 04/18/24 04/18/24 04/18/24 Range/Units 21:01 21:01 21:01 WBC 10.7 H (3.8-10.6) k/uL RBC 2.77 L (3.80-5.40) m/uL Hgb 8.6 L (11.4-16.0) gm/dL Hct 27.1 L (34.0-46.0) % MCV 97.7 (80.0-100.0) fL MCH 30.7 (25.0-35.0) pg MCHC 31.6 (31.0-37.0) g/dL RDW 13.2 (11.5-15.5) % Plt Count 205 (150-450) k/uL MPV 7.1 Neutrophils % 81 % Lymphocytes % 12 % Monocytes % 4 % Eosinophils % 2 % Basophils % 1 % Neutrophils # 8.7 H (1.3-7.7) k/uL Lymphocytes # 1.3 (1.0-4.8) k/uL Monocytes # 0.4 (0-1.0) k/uL Eosinophils # 0.2 (0-0.7) k/uL Basophils # 0.1 (0-0.2) k/uL PT 10.7 (10.0-12.5) sec INR 1.0 (<1.2) APTT 28.3 (22.0-30.0) sec Sodium (137-145) mmol/L Potassium (3.5-5.1) mmol/L Chloride (98-107) mmol/L Carbon Dioxide (22-30) mmol/L Anion Gap mmol/L BUN (7-17) mg/dL Creatinine (0.52-1.04) mg/dL Est GFR (CKD-EPI)AfAm (>60 ml/min/1.73 sqM) Est GFR (CKD-EPI)NonAf (>60 ml/min/1.73 sqM) Glucose (74-99) mg/dL Calcium (8.4-10.2) mg/dL Total Bilirubin (0.2-1.3) mg/dL AST (14-36) U/L ALT (4-34) U/L Alkaline Phosphatase (38-126) U/L Troponin I (0.000-0.034) ng/mL Total Protein (6.3-8.2) g/dL Albumin (3.5-5.0) g/dL Urine Opiates Screen Detected H (NotDetected) Ur Oxycodone Screen Not Detected (NotDetected) Urine Methadone Screen Not Detected (NotDetected) Ur Barbiturates Screen Not Detected (NotDetected) U Tricyclic Antidepress Detected H (NotDetected) Ur Phencyclidine Scrn Not Detected (NotDetected) Ur Amphetamines Screen Not Detected (NotDetected) U Methamphetamines Scrn Not Detected (NotDetected) U Benzodiazepines Scrn Detected H (NotDetected) Urine Cocaine Screen Not Detected (NotDetected) U Marijuana (THC) Screen Detected H (NotDetected) 04/18/24 04/18/24 Range/Units 21:01 21:01 WBC (3.8-10.6) k/uL RBC (3.80-5.40) m/uL Hgb (11.4-16.0) gm/dL Hct (34.0-46.0) % MCV (80.0-100.0) fL MCH (25.0-35.0) pg MCHC (31.0-37.0) g/dL RDW (11.5-15.5) % Plt Count (150-450) k/uL MPV Neutrophils % % Lymphocytes % % Monocytes % % Eosinophils % % Basophils % % Neutrophils # (1.3-7.7) k/uL Lymphocytes # (1.0-4.8) k/uL Monocytes # (0-1.0) k/uL Eosinophils # (0-0.7) k/uL Basophils # (0-0.2) k/uL PT (10.0-12.5) sec INR (<1.2) APTT (22.0-30.0) sec Sodium 137 (137-145) mmol/L Potassium 4.2 (3.5-5.1) mmol/L Chloride 110 H (98-107) mmol/L Carbon Dioxide 19 L (22-30) mmol/L Anion Gap 8 mmol/L BUN 18 H (7-17) mg/dL Creatinine 0.78 (0.52-1.04) mg/dL Est GFR (CKD-EPI)AfAm >90 (>60 ml/min/1.73 sqM) Est GFR (CKD-EPI)NonAf 81 (>60 ml/min/1.73 sqM) Glucose 108 H (74-99) mg/dL Calcium 10.0 (8.4-10.2) mg/dL Total Bilirubin 0.8 (0.2-1.3) mg/dL AST 34 (14-36) U/L ALT 27 (4-34) U/L Alkaline Phosphatase 87 (38-126) U/L Troponin I <0.012 (0.000-0.034) ng/mL Total Protein 6.8 (6.3-8.2) g/dL Albumin 4.4 (3.5-5.0) g/dL Urine Opiates Screen (NotDetected) Ur Oxycodone Screen (NotDetected) Urine Methadone Screen (NotDetected) Ur Barbiturates Screen (NotDetected) U Tricyclic Antidepress (NotDetected) Ur Phencyclidine Scrn (NotDetected) Ur Amphetamines Screen (NotDetected) U Methamphetamines Scrn (NotDetected) U Benzodiazepines Scrn (NotDetected) Urine Cocaine Screen (NotDetected) U Marijuana (THC) Screen (NotDetected) Disposition Clinical Impression: Fracture of lumbar spine, Suicidal ideation Disposition: ADMITTED IP TO THIS [facility] Referrals: Pritesh Yarbrough MD [Primary Care Provider] - 1-2 days Time of Disposition: 04:28
[2024-04-18 21:28] LABS: Basophils # (A) 0.1 k/uL (0-0.2); Basophils % (A) 1 %; Eosinophils # (A) 0.2 k/uL (0-0.7); Eosinophils % (A) 2 %; HCT 27.1 % (34.0-46.0); Lymphocytes # (A) 1.3 k/uL (1.0-4.8); Lymphocytes % (A) 12 %; MCV 97.7 fL (80.0-100.0); Mean Platelet Volume 7.1; Monocytes # (A) 0.4 k/uL (0-1.0); Monocytes % (A) 4 %; Neutrophils # (A) 8.7 k/uL (1.3-7.7); Neutrophils % (A) 81 %; Platelet Count 205 k/uL (150-450); RBC 2.77 m/uL (3.80-5.40); RDW 13.2 % (11.5-15.5); WBC 10.7 k/uL (3.8-10.6)
[2024-04-18] MEDS: ONDANSETRON 4 MG/2 ML VIAL IVP STA (21:29)
[2024-04-18] MEDS: MORPHINE SULFATE 2 MG/ML SYRINGE IVP ONE (21:31)
[2024-04-18 21:32] LABS: HGB 8.6 gm/dL (11.4-16.0); MCH 30.7 pg (25.0-35.0); MCHC 31.6 g/dL (31.0-37.0)
[2024-04-18 21:35] LABS: Partial Thromboplastin Time 28.3 sec (22.0-30.0); Prothrombin Time 10.7 sec (10.0-12.5)
[2024-04-18 21:38] LABS: ALT 27 U/L (4-34); AST 34 U/L (14-36); African American GFR (CKD) >90 (>60 ml/min/1.73 sqM); Albumin 4.4 g/dL (3.5-5.0); Alkaline Phosphatase 87 U/L (38-126); Anion Gap 8 mmol/L; Blood Urea Nitrogen 18 mg/dL (7-17); Carbon Dioxide 19 mmol/L (22-30); Chloride 110 mmol/L (98-107); Glucose 108 mg/dL (74-99); Non-African American GFR(CKD) 81 (>60 ml/min/1.73 sqM); Potassium 4.2 mmol/L (3.5-5.1); Sodium 137 mmol/L (137-145); Total Bilirubin 0.8 mg/dL (0.2-1.3); Total Protein 6.8 g/dL (6.3-8.2)
[2024-04-18 21:44] LABS: Amphetamine Screen,Urine Not Detected (NotDetected); Barbiturate Screen,Urine Not Detected (NotDetected); Benzodiazepines Screen,Urine Detected (NotDetected); Cocaine Screen,Urine Not Detected (NotDetected); Methadone Screen, Urine Not Detected (NotDetected); Opiate Screen,Urine Detected (NotDetected); Oxycodone Screen, Urine Not Detected (NotDetected); Phencyclidine Screen,Urine Not Detected (NotDetected); Tricyclic Antidepressant,Urine Detected (NotDetected); Urn Cannabinoid Scrn Detected (NotDetected)
--- NOTE | 2024-04-19 00:59 | CT ---
EXAM: CT Head Without Intravenous Contrast CLINICAL HISTORY: ITS.REASON CT Reason: altered mental status TECHNIQUE: Axial computed tomography images of the head/brain without intravenous contrast. CTDI is 49.2 mGy and DLP is 1095.4 mGy-cm. This CT exam was performed using one or more of the following dose reduction techniques: automated exposure control, adjustment of the mA and/or kV according to patient size, and/or use of iterative reconstruction technique. COMPARISON: Comparison made to prior head CT from November 25, 2018. FINDINGS: Brain: Unremarkable. No hemorrhage. No significant white matter disease. No edema. Ventricles: Unremarkable. No ventriculomegaly. Bones/joints: Unremarkable. No acute fracture. Soft tissues: Unremarkable. Sinuses: Chronic ethmoid sinusitis. No acute sinusitis. Mastoid air cells: Unremarkable as visualized. No mastoid effusion. IMPRESSION: No evidence of acute intracranial pathology.
--- NOTE | 2024-04-19 01:20 | XR ---
EXAM: XR Chest, 2 Views CLINICAL HISTORY: ITS.REASON XR Reason: altered mental status TECHNIQUE: Frontal and lateral views of the chest. COMPARISON: Comparison made to prior chest x-ray from April 14, 2019. FINDINGS: Lungs: Moderate peribronchial thickening of the central and lower lobe bronchi. Increased interstitial opacities the lower lobes. No consolidation. Pleural space: Unremarkable. No pneumothorax. Heart: Unremarkable. No cardiomegaly. Mediastinum: Unremarkable. Normal mediastinal contour. Bones/joints: Unremarkable. No acute fracture. IMPRESSION: Findings concerning for bronchitis with pneumonitis, which may be of infectious or inflammatory etiologies. No consolidation or pleural effusion.
[2024-04-19] MEDS ORDERED: IBUPROFEN 400 MG TAB PO PRN (03:28)
[2024-04-19] MEDS ORDERED: NALOXONE 0.4 MG/ML 1 ML VIAL IV PRN (03:28)
[2024-04-19] MEDS ORDERED: ACETAMINOPHEN TAB 325 MG TAB PO PRN (03:28)
[2024-04-19] MEDS: MORPHINE SULFATE 4 MG/ML SYRINGE IV PRN (08:27)
[2024-04-19] MEDS: KETOROLAC 15 MG/ML 1 ML VIAL IVP PRN (10:35)
[2024-04-19] MEDS: OLANZapine 10 MG VIAL IM STA (11:45)
[2024-04-19] MEDS ORDERED: HALOPERIDOL LACTATE 5 MG/ML 1 ML VIAL IM PRN (15:13)
--- NOTE | 2024-04-19 15:24 | P.CN ---
Psychiatric Consult - . Consult:: ID: 63 year old female with history of PTSD and anxiety per chart admitted for lumbar fracture and psychiatry is consulted for SI HPI: Per chart,patient was in the ER yesterday for lumbar fx with surgery recommendation but left AMA. She was then found wandering around and laying in residential yards resulting in multiple 911 calls. She then made a pasive suicidal statement. She has been uncooperative since being in the ER. Per staff, patient has been quite agitated. She has been throwing things on the floor and yelling. At one point, she began crawling on the floor. She eventually received IM Zyprexa. Patient was seen sleeping on the gurney in a position with belly down. Due to agitation, patient was not awoken. Psych hx: PTSD and anx per chart Meds: could not assess as patient is drowsy after receiving IM PMH: fibromyalgia, GERD, peripheral neuropathy, lumbar fx FH: could not assess as patient is drowsy after receiving IM Substance use: smokes per chart, UDS positive for opiates, TCAs, benzodiazepines, marijuana Social history: could not assess as patient is drowsy after receiving IM MSE: Appearance: 63 year old female, appears older than stated age, long white hair, lying in bed sleeping in position with abdomen facing downwards Behavior: sleeping SPeech: could not assess as patient is drowsy after receiving IM Mood: could not assess as patient is drowsy after receiving IM Affect: could not assess as patient is drowsy after receiving IM Thought process/content: could not assess as patient is drowsy after receiving IM Perception: could not assess as patient is drowsy after receiving IM Cognition: could not assess as patient is drowsy after receiving IM Insight/Judgement: poor Assesment: The wandering, agitation, and bizarre behavior appear to be psychotic in nature. This can be due to delirium due to an underlying medical condition or substance use, substance induced psychosis, worsening of or onset of dementia, or worsneing of schizophrenia. No [facility] admissions were found on chart review. Only history of PTSD and anxiety was found and this presentation is very unlikely to be due to worsening of that. Differential Diagnosis: delirium vs psychosis vs substance induced psychosis Plan: -start Risperdal 1 mg bid for bizarre behavior, agitation -Haldol 5 mg PRN PO and IM if she refuses PO for acute agitation (can do IV instead of IM if patient has an IV) -will try to obtain more history once patient is cooperative -psychiatry will continue to follow
[2024-04-19] MEDS: ONDANSETRON 4 MG/2 ML VIAL IVP PRN (17:15)
[2024-04-19] MEDS ORDERED: ALBUTEROL NEBULIZED 2.5 MG/3 ML INHALATION PRN (17:41)
[2024-04-19] MEDS ORDERED: haloperidoL 5 MG TAB PO PRN (17:45)
--- NOTE | 2024-04-19 17:45 | P.HPIM ---
History of Present Illness H&P Date: 04/19/24 History of present illness; 63-year-old female with past medical history significant for pneumonia, o steoarthritis, syncope, GERD who was brought to the ER for psychiatric evaluation. Patient stated that she had L5 fracture back in August, patient left AMA from 16 March [facility] in [place] reportedly patient had L3 fracture and was recommended surgery over there. Patient reported in the ED that she left because she needed to put on a security deposit on an apartment. Patient stated that she is currently homeless. Patient was found by the police wandering. Please rule received multiple 911 calls about patient laying in the yard. Patient was also reported to have statements such as things would be better off if she fell and hit her head and . Patient denied any fever, chills, sore throat, productive cough, chest pain, palpitation, nausea vomiting diarrhea constipation abdominal pain dysuria urgency frequency. Patient was complaining of generalized weakness in lower extremities, patient was ambulating in the ER room and was initially agitated later on calm down after patient received Zyprexa. Patient denied any suicidal or homicidal ideations. Patient poor historian, limited history. In the ED patient afebrile, heart rate 78, respiratory rate 18, blood pressure 138/87, saturating 97% on room air. Lab work showed WBCs 10.7, hemoglobin 8.6, platelet 205. INR 1.0. Sodium 137, potassium 4.2 chloride 110 carbon dioxide 19, BUN 18, creatinine 0.78. LFTs were unremarkable. Urine drug screen showed opiates, tricyclic antidepressants, benzodiazepine and marijuana. REVIEW OF SYSTEMS: CONSTITUTIONAL: No fever, no malaise, no fatigue. HEENT: No recent visual problems or hearing problems. Denied any sore throat. CARDIOVASCULAR: No chest pain, orthopnea, PND, no palpitations, no syncope. PULMONARY: No shortness of breath, no cough, no hemoptysis. GASTROINTESTINAL: No diarrhea, no nausea, no vomiting, no abdominal pain. NEUROLOGICAL: No headaches, no weakness, no numbness. HEMATOLOGICAL: Denies any bleeding or petechiae. GENITOURINARY: Denies any burning micturition, frequency, or urgency. MUSCULOSKELETAL/RHEUMATOLOGICAL: Denies any joint pain, swelling, or any muscle pain. ENDOCRINE: Denies any polyuria or polydipsia. The rest of the 14-point review of systems is negative. PHYSICAL EXAMINATION: GENERAL: The patient is alert and oriented x3, not in any acute distress. Well developed, well nourished. HEENT: Pupils are round and equally reacting to light. EOMI. No scleral icterus. No conjunctival pallor. Normocephalic, atraumatic. No pharyngeal erythema. No thyromegaly. CARDIOVASCULAR: S1 and S2 present. No murmurs, rubs, or gallops. PULMONARY: Chest is clear to auscultation, no wheezing or crackles. ABDOMEN: Soft, nontender, nondistended, normoactive bowel sounds. No palpable organomegaly. MUSCULOSKELETAL: No joint swelling or deformity. EXTREMITIES: No cyanosis, clubbing, or pedal edema. NEUROLOGICAL: Gross neurological examination did not reveal any focal deficits. SKIN: No rashes. Assessment and plan Suicidal ideations: Patient was brought in by police, patient is homeless, reported to have suicidal commands. Sitter one-to-one Suicide precautions Psychiatry consult As needed Zyprexa for agitation Resume home meds. Acute on chronic back pain: Reported L3/L5 fracture Patient had no neurodeficits. Symptomatic pain control. Discussed with orthopedicsrecommended imaging prior to consult CT lumbar spine. Monitor vital signs Monitor CBC Monitor CMP Continue telemetry monitoring Labs and medication were reviewed.. Continue same treatment. Continue with symptomatic treatment. Resume home medication. Monitor labs and vitals. Further recommendations as per clinical course of the patient Dictation was produced using [employer] dictation software. please excuse any grammatical, word or spelling errors. Past Medical History Past Medical History: GERD/Reflux, Osteoarthritis (OA), Pneumonia, Syncope Additional Past Medical History / Comment(s): Hypotension, syncopal episodes, severe facial neuropathy, neuropathy bilateral legs/feet, mid to low back pain with right sided sciatica, scoliosis, R foot neuroma, trigger fingers, bells palsy, shingles History of Any Multi-Drug Resistant Organisms: MRSA Date of last positivie culture/infection: 12/23/18 MDRO Source:: MRSA LEG Past Surgical History: Hysterectomy, Tubal Ligation Additional Past Surgical History / Comment(s): left ankle fracture with surgical repair-pt unsure if any hardware, 6 foot surgeries- bunionectomies and R foot neuroma removals Past Anesthesia/Blood Transfusion Reactions: No Reported Reaction, Motion Sickness Past Psychological History: Anxiety, Depression, Panic Disorder, PTSD Smoking Status: Current every day smoker Past Alcohol Use History: None Reported Past Drug Use History: Marijuana - Past Family History Father History Unknown: Yes Additional Family Medical History / Comment(s): Father when pt was 4 yrs old. Mother Additional Family Medical History / Comment(s): Mother is . She had neuropathy and headaches. Medications and Allergies Home Medications Medication Instructions Recorded Confirmed Type Aspirin EC [Ecotrin Low Dose] 81 mg PO DAILY 05/23/18 04/19/24 History Omeprazole [PriLOSEC] 20 mg PO DAILY 05/23/18 04/19/24 History Cetirizine HCl 10 mg PO DAILY 04/14/19 04/19/24 History Acetaminophen Tab [Tylenol Tab] 500 mg PO Q6H PRN 04/19/24 04/19/24 History Albuterol Inhaler [Ventolin Hfa 1 - 2 puff INHALATION RT-Q6H PRN 04/19/24 04/19/24 History Inhaler] Cholecalciferol [Vitamin D3 (125 125 mcg PO DAILY 04/19/24 04/19/24 History Mcg = 5000 Iu)] Diclofenac Sodium Gel [Voltaren 1% 1 applic TOPICAL QID PRN 04/19/24 04/19/24 History Gel] Diclofenac Sodium [Voltaren] 75 mg PO BID 04/19/24 04/19/24 History Gabapentin 800 mg PO TID 04/19/24 04/19/24 History Lidocaine 4% Patch 3 patch TOPICAL DAILY 04/19/24 04/19/24 History QUEtiapine XR [SEROquel XR] 200 mg PO HS 04/19/24 04/19/24 History Sertraline [Zoloft] 50 mg PO DAILY 04/19/24 04/19/24 History Sertraline [Zoloft] 100 mg PO DAILY 04/19/24 04/19/24 History diazePAM [Valium] 5 mg PO BID 04/19/24 04/19/24 History methocarbamoL 750 mg PO QID 04/19/24 04/19/24 History Allergies Allergy/AdvReac Type Severity Reaction Status Date / Time amoxicillin Allergy Rash/Hives Verified 04/19/24 10:45 bee venom protein (honey bee) Allergy Anaphylaxis Verified 04/19/24 10:45 Penicillins Allergy Rash/Hives Verified 04/19/24 10:45 Physical Exam Vitals: Vital Signs Temp Pulse Resp BP Pulse Ox 04/19/24 14:00 97.8 F 78 18 138/87 97 04/19/24 08:26 77 18 133/86 97 04/19/24 06:44 60 18 117/78 96 04/18/24 22:31 54 L 17 118/68 96 04/18/24 19:54 98.3 F 58 L 16 141/86 98 Results CBC & Chem 7: 04/18/24 21:01 04/18/24 21:01 Labs: Abnormal Lab Results - Last 24 Hours (Table) 04/18/24 04/18/24 04/18/24 Range/Units 21:01 21:01 21:01 WBC 10.7 H (3.8-10.6) k/uL RBC 2.77 L (3.80-5.40) m/uL Hgb 8.6 L (11.4-16.0) gm/dL Hct 27.1 L (34.0-46.0) % Neutrophils # 8.7 H (1.3-7.7) k/uL Chloride 110 H (98-107) mmol/L Carbon Dioxide 19 L (22-30) mmol/L BUN 18 H (7-17) mg/dL Glucose 108 H (74-99) mg/dL Urine Opiates Screen Detected H (NotDetected) U Tricyclic Antidepress Detected H (NotDetected) U Benzodiazepines Scrn Detected H (NotDetected) U Marijuana (THC) Screen Detected H (NotDetected)
[2024-04-19] MEDS: LIDOCAINE 4% PATCH TOPICAL SCH (18:15)
[2024-04-19] MEDS: haloperidoL 5 MG TAB PO PRN (18:16)
[2024-04-19] MEDS: methocarbamoL 750 MG TAB PO SCH (18:17)
[2024-04-19] MEDS: risperiDONE 1 MG TAB PO SCH (18:51)
[2024-04-19] MEDS: SERTRALINE 100 MG TAB PO SCH (18:52)
--- NOTE | 2024-04-19 18:53 | CT ---
EXAMINATION TYPE: CT lumbar spine wo con CT DLP: 552.9 mGycm, Automated exposure control for dose reduction was used. DATE OF EXAM: 04/19/2024 6:43 PM COMPARISON: None. CLINICAL INDICATION:Female, 63 years old with history of Back pain, L3 and L5 fracture; PHH, fx back TECHNIQUE: Multiple axial images were obtained from the midportion of T11 through the sacroiliac aleksandar nts. Soft tissue and bone windows in coronal and sagittal planes were obtained and reviewed. 3-D ref ormats of the bones were created on a separate workstation and submitted for review. Contrast used: mL of , (None, if empty). Oral contrast used: (None, if empty). FINDINGS: Scoliosis changes of the spine with severe degeneration at the adjoining endplates of L2-L3 and L4-L5 . Age-indeterminate fracture of the right pedicle of L3 series 202 image 26 deformity appears chronic at the superior endplate of L5 and the adjoining endplates of L2-L3. There is levoscoliosis apex L2- L3. Osteophyte formation with joint space narrowing and facet joint arthropathy are seen throughout the s pine. There is grade 2 anterolisthesis of L4 and L5 no evidence for spondylolysis. At least mild neur al foraminal stenosis throughout the lumbar spine and moderate at L2-L3 on the right. Spinal canal is moderately narrowed at L3-L4. IMPRESSION: 1. Age-indeterminate fracture of the right pedicle of L3 and possibly the superior endplate of L5. C onsider evaluation of the right evaluate for bony edema. 2. Severe degeneration changes of the spine with scoliosis no discrete fracture definitely visualize d. Consider evaluation with MRI to evaluate for bony edema. 3. Scoliosis 4. Moderate neural foraminal stenosis on the right at L2-L3 secondary to facet joint arthropathy..
[2024-04-19] MEDS: GABAPENTIN 400 MG CAP PO SCH (20:52)
[2024-04-19] MEDS: diazePAM 5 MG TAB PO SCH (20:53)
[2024-04-19] MEDS: QUEtiapine 100 MG TAB PO SCH (20:53)
[2024-04-19] MEDS ORDERED: risperiDONE ORAL SOLN 5 MG/5 ML CUP PO SCH (21:00)
[2024-04-20] MEDS: ENOXAPARIN 40 MG/0.4 ML SYRINGE SQ SCH (08:05)
[2024-04-20] MEDS: PANTOPRAZOLE 40 MG TABLET PO SCH (08:07)
[2024-04-20] MEDS: LORATADINE 10 MG TAB PO SCH (08:07)
[2024-04-20] MEDS: CHOLECALCIFEROL 125 MCG (5000 IU) TABLET PO SCH (08:07)
[2024-04-20 09:17] LABS: Basophils # (A) 0.09 X 10*3/uL (0.00-0.10); Basophils % (A) 1.3 %; Eosinophils # (A) 0.29 X 10*3/uL (0.04-0.35); Eosinophils % (A) 4.3 %; HCT 34.7 % (37.2-46.3); HGB 11.5 g/dL (12.0-15.0); Lymphocytes # (A) 3.58 X 10*3/uL (0.90-5.00); Lymphocytes % (A) 52.6 %; MCH 31.8 pg (27.0-32.0); MCHC 33.1 g/dL (32.0-37.0); MCV 95.9 FL (80.0-97.0); Monocytes # (A) 0.61 X 10*3/uL (0.20-1.00); NRBC Per 100 WBC 0 X 10*3/uL (0.00-0.01); Neutrophils # (A) 2.21 X 10*3/uL (1.80-7.70); Neutrophils % (A) 32.5 %; Platelet Count 248 X 10*3/uL (140-440); RBC 3.62 X 10*6/uL (4.10-5.20); RDW 13.2 % (11.5-14.5)
[2024-04-20 09:41] LABS: ALT 17 U/L (8-44); AST 21 U/L (13-35); Albumin 3.7 g/dL (3.8-4.9); Albumin/Globulin Ratio 2.31 Ratio (1.60-3.17); Alkaline Phosphatase 73 U/L (41-126); BUN/Creat Ratio 21.88 Ratio (12.00-20.00); Blood Urea Nitrogen 17.5 mg/dL (9.0-27.0); Calcium 9.3 mg/dL (8.7-10.3); Carbon Dioxide 23.4 mmol/L (21.6-31.8); Chloride 105 mmol/L (96-109); Globulin 1.6 g/dL (1.6-3.3); Glucose 72 mg/dL (70-110); Magnesium 1.8 mg/dL (1.5-2.4); Phosphorus 3.3 mg/dL (2.4-5.1); Potassium 4.3 mmol/L (3.5-5.5); Sodium 138 mmol/L (135-145); Total Bilirubin 0.3 mg/dL (0.3-1.2); Total Protein 5.3 g/dL (6.2-8.2)
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
--- NOTE | 2024-04-20 15:16 | P.PN ---
Subjective Progress Note Date: 04/20/24 Interval History: Patient was seen and examined today. Patient was more calm and cooperative today. Continue complain of lower back pain. Poor historian. CT lumbar spine resulted as below. Orthopedic surgery consulted. Psychiatry consulted and following. REVIEW OF SYSTEMS: CONSTITUTIONAL: No fever, no malaise,. CARDIOVASCULAR: No chest pain, no palpitations, no syncope. PULMONARY: No shortness of breath, no cough, GASTROINTESTINAL: No diarrhea, no nausea, no vomiting, no abdominal pain. NEUROLOGICAL: No headaches, no weakness, PHYSICAL EXAMINATION: GENERAL: The patient is alert and oriented x3, not in any acute distress. Well developed, well nourished. HEENT: Pupils are round and equally reacting to light. EOMI. No scleral icterus. No conjunctival pallor. Normocephalic, atraumatic. No pharyngeal erythema. No thyromegaly. CARDIOVASCULAR: S1 and S2 present. No murmurs, rubs, or gallops. PULMONARY: Chest is clear to auscultation, no wheezing or crackles. ABDOMEN: Soft, nontender, nondistended, normoactive bowel sounds. No palpable organomegaly. MUSCULOSKELETAL: No joint swelling or deformity. EXTREMITIES: No cyanosis, clubbing, or pedal edema. NEUROLOGICAL: Gross neurological examination did not reveal any focal deficits. SKIN: No rashes. Assessment and plan Suicidal ideations: Patient was brought in by police, patient is homeless, reported to have suicidal commands. Sitter one-to-one Suicide precautions Psychiatry consulted--recommended to continue home meds, recommended to continue sitter. As needed Zyprexa for agitation Resume home meds--Zoloft, Seroquel, diazepam. Acute on chronic back pain: Reported L3/L5 fracture Patient had no neurodeficits. Symptomatic pain control. Discussed with orthopedicsrecommended imaging prior to consult CT lumbar spine--age-indeterminate fracture of right pedicle of L3, and possible this. Endplate of L5, consider evaluation for bony edema. Severe degenerative changes of the spine with scoliosis. Consider evaluation with MRI for bony edema, scoliosis. Spinal orthopedic consulted. DVT prophylaxis: Subcutaneous Lovenox Dictation was produced using [employer] software. please excuse any grammatical, word or spelling errors. Objective - Vital Signs Vital signs: Vital Signs Temp 97.7 F 04/20/24 12:10 Pulse 71 04/20/24 12:10 Resp 18 04/20/24 12:10 BP 131/74 04/20/24 12:10 Pulse Ox 97 04/20/24 12:10 FiO2 - Labs CBC & Chem 7: 04/20/24 03:48 04/20/24 03:48 Labs: Abnormal Lab Results - Last 24 Hours (Table) 04/20/24 04/20/24 Range/Units 03:48 03:48 RBC 3.62 L (4.10-5.20) X 10*6/uL Hgb 11.5 L (12.0-15.0) g/dL Hct 34.7 L (37.2-46.3) % BUN/Creatinine Ratio 21.88 H (12.00-20.00) Ratio Total Protein 5.3 L (6.2-8.2) g/dL Albumin 3.7 L (3.8-4.9) g/dL
--- NOTE | 2024-04-21 10:40 | MR ---
EXAMINATION TYPE: MR lumbar spine wo con DATE OF EXAM: 04/21/2024 COMPARISON: NONE HISTORY: Severe back pain and fractures TECHNIQUE: T1 and T2 axial and sagittal images of the lumbar spine are submitted. FINDINGS: There is no abnormal signal seen within the visualized spinal cord or paraspinal soft tissu es. There is a scoliotic curvature the spine with vacuum disc and severe degenerative disc disease at all levels. Marrow signal alteration L2-3 and L4-L5 compatible with marrow edema and discogenic changes. Suspect a mild superior endplate compression fracture L5 stable from CT scan. Benign-appearing renal cysts. Aorta normal caliber. Chronic deformity of the left transverse process of L2. There is a fracture of the right pedicle of L3 is likely subacute to chronic. This does result in mas s effect upon the thecal sac. Assessment spinal canal is limited due to resolution and artifact. At L1-2 there is moderate degenerative disc disease with hypertrophic change of the facets. No canal stenosis or obvious disc herniation. At L2-3 there is severe degenerative disc disease. Discogenic marrow changes are seen and there is re trolisthesis grade 1 of L2-L3. There is facet arthropathy and broad-based disc bulging with moderate canal stenosis. [id number] right and mild left foraminal encroachment. There is a fracture of the L3 pedicle on the right appears subacute to chronic. At L3-4 there is moderate degenerative disc disease with hypertrophic spurring and broad-based disc p rotrusion, facet arthropathy and ligamentum flavum hypertrophy. Mild to moderate central stenosis and bilateral foraminal approach. There is a subacute to chronic fracture left transverse process of L3 At L4-5 there is severe degenerative disc disease with grade 1 anterolisthesis L4-L5. There is facet arthropathy. Broad-based disc protrusion with ligamentum flavum hypertrophy results in moderate to se randolph canal stenosis and bilateral foraminal protrusion. At L5-S1 there is severe degenerative disc disease with no canal stenosis or focal herniation. Facet arthropathy. There is a proximal segment 15-20% anterior superior endplate compression fracture which appears subacute to chronic. IMPRESSION: Limited exam due to motion artifact. 1. Subacute to chronic compression fracture superior endplate L5 with approximately 15-20% loss of ve rtebral body height. 2. Subacute to chronic fracture right pedicle L3 stable from CT scan. 3. Multilevel disc bulging\protrusion with hypertrophic changes resulting in multilevel canal stenosi s and foraminal protrusion as discussed above. 4. Scoliosis with severe multilevel degenerative disc disease. 5. Chronic appearing left transverse process fracture L2. 6. Subacute to chronic fracture left transverse process of L3.
[2024-04-21 11:39] VITALS: BMI 15.7
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
[2024-04-21] MEDS: HYDROcodone/APAP 5-325MG 1 EACH TAB PO PRN (13:31)
--- NOTE | 2024-04-21 14:39 | P.PN ---
Subjective Progress Note Date: 04/21/24 63-year-old female with past medical history significant for pneumonia, osteoarthritis, syncope, GERD who was brought to the ER for psychiatric evaluation. Patient stated that she had L5 fracture back in August, patient left AMA from 16 March [facility] in [place] reportedly patient had L3 fracture and was recommended surgery over there. Patient reported in the ED that she left because she needed to put on a security deposit on an apartment. Patient stated that she is currently homeless. Patient was found by the police wandering. Please rule received multiple 911 calls about patient laying in the yard. Patient was also reported to have statements such as things would be better off if she fell and hit her head and . Patient denied any fever, chills, sore throat, productive cough, chest pain, palpitation, nausea vomiting diarrhea constipation abdominal pain dysuria urgency frequency. Patient was complaining of generalized weakness in lower extremities, patient was ambulating in the ER room and was initially agitated later on calm down after patient received Zyprexa. Patient denied any suicidal or homicidal ideations. Patient poor historian, limited history. In the ED patient afebrile, heart rate 78, respiratory rate 18, blood pressure 138/87, saturating 97% on room air. Lab work showed WBCs 10.7, hemoglobin 8.6, platelet 205. INR 1.0. Sodium 137, potassium 4.2 chloride 110 carbon dioxide 19, BUN 18, creatinine 0.78. LFTs were unremarkable. Urine drug screen showed opiates, tricyclic antidepressants, benzodiazepine and marijuana. 04/21. Patient seen and examined complaining of back pain. REVIEW OF SYSTEMS: CONSTITUTIONAL: No fever, no malaise,. CARDIOVASCULAR: No chest pain, no palpitations, no syncope. PULMONARY: No shortness of breath, no cough, GASTROINTESTINAL: No diarrhea, no nausea, no vomiting, no abdominal pain. NEUROLOGICAL: No headaches, no weakness, PHYSICAL EXAMINATION: GENERAL: The patient is alert and oriented x3, not in any acute distress. Well developed, well nourished. HEENT: Pupils are round and equally reacting to light. EOMI. No scleral icterus. No conjunctival pallor. Normocephalic, atraumatic. No pharyngeal erythema. No thyromegaly. CARDIOVASCULAR: S1 and S2 present. No murmurs, rubs, or gallops. PULMONARY: Chest is clear to auscultation, no wheezing or crackles. ABDOMEN: Soft, nontender, nondistended, normoactive bowel sounds. No palpable organomegaly. MUSCULOSKELETAL: No joint swelling or deformity. EXTREMITIES: No cyanosis, clubbing, or pedal edema. NEUROLOGICAL: Gross neurological examination did not reveal any focal deficits. SKIN: No rashes. Assessment and plan Suicidal ideations: Patient was brought in by police, patient is homeless, reported to have suicidal commands. Sitter one-to-one Suicide precautions Psychiatry consulted--recommended to continue home meds, recommended to continue sitter. Acute on chronic back pain: Reported L3/L5 fracture Patient had no neurodeficits. Symptomatic pain control. Discussed with orthopedicsrecommended imaging prior to consult CT lumbar spine--age-indeterminate fracture of right pedicle of L3, and possible this. Endplate of L5, consider evaluation for bony edema. Severe degenerative changes of the spine with scoliosis. Consider evaluation with MRI for bony edema, scoliosis. Spinal orthopedic consulted. DVT prophylaxis: Subcutaneous Lovenox Labs and medication were reviewed.. Continue same treatment. Continue with symptomatic treatment. Resume home medication. Monitor labs and vitals. DVT and GI prophylaxis. Further recommendations as per clinical course of the patient Dictation was produced using [employer] dictation software. please excuse any grammatical, word or spelling errors. Objective - Vital Signs Vital signs: Vital Signs Temp 98.0 F 04/21/24 07:11 Pulse 53 L 04/21/24 07:11 Resp 16 04/21/24 07:11 BP 94/58 04/21/24 07:11 Pulse Ox 95 04/21/24 07:11 FiO2 Intake & Output 04/20/24 04/21/24 04/21/24 18:59 06:59 18:59 Intake Total 222 Balance 222 Weight 37.648 kg Intake: Oral 222 Other: Voiding Method Toilet Bedside Commode # Voids 1 # Bowel Movements 0 - Labs CBC & Chem 7: 04/20/24 03:48 04/20/24 03:48
--- NOTE | 2024-04-22 13:56 | P.PN ---
Subjective Progress Note Date: 04/22/24 63-year-old female with past medical history significant for pneumonia, osteoarthritis, syncope, GERD who was brought to the ER for psychiatric evaluation. Patient stated that she had L5 fracture back in August, patient left AMA from 16 March [facility] in [place] reportedly patient had L3 fracture and was recommended surgery over there. Patient reported in the ED that she left because she needed to put on a security deposit on an apartment. Patient stated that she is currently homeless. Patient was found by the police wandering. Please rule received multiple 911 calls about patient laying in the yard. Patient was also reported to have statements such as things would be better off if she fell and hit her head and . Patient denied any fever, chills, sore throat, productive cough, chest pain, palpitation, nausea vomiting diarrhea constipation abdominal pain dysuria urgency frequency. Patient was complaining of generalized weakness in lower extremities, patient was ambulating in the ER room and was initially agitated later on calm down after patient received Zyprexa. Patient denied any suicidal or homicidal ideations. Patient poor historian, limited history. In the ED patient afebrile, heart rate 78, respiratory rate 18, blood pressure 138/87, saturating 97% on room air. Lab work showed WBCs 10.7, hemoglobin 8.6, platelet 205. INR 1.0. Sodium 137, potassium 4.2 chloride 110 carbon dioxide 19, BUN 18, creatinine 0.78. LFTs were unremarkable. Urine drug screen showed opiates, tricyclic antidepressants, benzodiazepine and marijuana. 04/21. Patient seen and examined complaining of back pain. . Patient seen and examined. States back pain has improved. Patient keen to go home. Currently waiting on psych for evaluation REVIEW OF SYSTEMS: CONSTITUTIONAL: No fever, no malaise,. CARDIOVASCULAR: No chest pain, no palpitations, no syncope. PULMONARY: No shortness of breath, no cough, GASTROINTESTINAL: No diarrhea, no nausea, no vomiting, no abdominal pain. NEUROLOGICAL: No headaches, no weakness, PHYSICAL EXAMINATION: GENERAL: The patient is alert and oriented x3, not in any acute distress. Well developed, well nourished. HEENT: Pupils are round and equally reacting to light. EOMI. No scleral icterus. No conjunctival pallor. Normocephalic, atraumatic. No pharyngeal erythema. No thyromegaly. CARDIOVASCULAR: S1 and S2 present. No murmurs, rubs, or gallops. PULMONARY: Chest is clear to auscultation, no wheezing or crackles. ABDOMEN: Soft, nontender, nondistended, normoactive bowel sounds. No palpable organomegaly. MUSCULOSKELETAL: No joint swelling or deformity. EXTREMITIES: No cyanosis, clubbing, or pedal edema. NEUROLOGICAL: Gross neurological examination did not reveal any focal deficits. SKIN: No rashes. Assessment and plan Suicidal ideations: Patient was brought in by police, patient is homeless, reported to have suicidal commands. Sitter one-to-one Suicide precautions Psychiatry consulted--recommended to continue home meds, recommended to continue sitter. Acute on chronic back pain: Reported L3/L5 fracture Patient had no neurodeficits. CT lumbar spine--age-indeterminate fracture of right pedicle of L3, and possible this. Endplate of L5, consider evaluation for bony edema. Severe degenerative changes of the spine with scoliosis. Consider evaluation with MRI for bony edema, scoliosis. Orthopedic spine evaluated the patient, recommended conservative management with back brace DVT prophylaxis: Subcutaneous Lovenox Labs and medication were reviewed.. Continue same treatment. Continue with symptomatic treatment. Resume home medication. Monitor labs and vitals. DVT and GI prophylaxis. Further recommendations as per clinical course of the patient Dictation was produced using [employer] dictation software. please excuse any gr ammatical, word or spelling errors. Objective - Vital Signs Vital signs: Vital Signs Temp 97.4 F L 04/22/24 07:26 Pulse 55 L 04/22/24 07:26 Resp 20 04/22/24 07:26 BP 108/69 04/22/24 07:26 Pulse Ox 99 04/22/24 07:26 FiO2 Intake & Output 04/21/24 04/22/24 04/22/24 18:59 06:59 18:59 Weight 37.648 kg Other: Voiding Method Toilet Toilet Bedside Commode Bedside Commode # Voids 1 1 # Bowel Movements 0 - Labs CBC & Chem 7: 04/20/24 03:48 04/20/24 03:48
[2024-04-22 14:02] VITALS: BP 143/85; PULSE 64; RESP 18; TEMP 98.3
--- NOTE | 2024-04-23 09:31 | P.DS ---
Providers Date of admission: 04/19/24 03:31 Expected date of discharge: 04/22/24 Attending physician: Danilo Boykin MD Consults: 04/19/24 03:28 Consult Physician Urgent Consulting Provider: Amrik Vallecillo Consult Reason/Comments: suicidal ideation Do you want consulting provider notified?: Yes 04/20/24 10:59 Consult Physician Routine Consulting Provider: Tarun Abebe Consult Reason/Comments: L3, L5 fracture with bony edema. Do you want consulting provider notified?: Yes Primary care physician: Pritesh Yarbrough [facility] Course: Discharge diagnoses; Suicidal ideations: Patient was brought in by police, patient is homeless, reported to have suicidal commands. Sitter one-to-one Suicide precautions Psychiatry consulted--recommended to continue home meds, cleared the patient for discharge Acute on chronic back pain: Reported L3/L5 fracture Patient had no neurodeficits. CT lumbar spine--age-indeterminate fracture of right pedicle of L3, and possible this. Endplate of L5, consider evaluation for bony edema. Severe degenerative changes of the spine with scoliosis. Consider evaluation with MRI for bony edema, scoliosis. Orthopedic spine evaluated the patient, recommended conservative management with back brace DVT prophylaxis: Subcutaneous Lovenox Hospital course; 63-year-old female with past medical history significant for pneumonia, osteoarthritis, syncope, GERD who was brought to the ER for psychiatric evaluation. Patient stated that she had L5 fracture back in August, patient left AMA from 16 March [facility] in [place] reportedly patient had L3 fracture and was recommended surgery over there. Patient reported in the ED that she left because she needed to put on a security deposit on an apartment. Patient stated that she is currently homeless. Patient was found by the police wandering. Please rule received multiple 911 calls about patient laying in the yard. Hien walker was also reported to have statements such as things would be better off if she fell and hit her head and . Patient denied any fever, chills, sore throat, productive cough, chest pain, palpitation, nausea vomiting diarrhea constipation abdominal pain dysuria urgency frequency. Patient was complaining of generalized weakness in lower extremities, patient was ambulating in the ER room and was initially agitated later on calm down after patient received Zyprexa. Patient denied any suicidal or homicidal ideations. Patient poor historian, limited history. In the ED patient afebrile, heart rate 78, respiratory rate 18, blood pressure 138/87, saturating 97% on room air. Lab work showed WBCs 10.7, hemoglobin 8.6, platelet 205. INR 1.0. Sodium 137, potassium 4.2 chloride 110 carbon dioxide 19, BUN 18, creatinine 0.78. LFTs were unremarkable. Urine drug screen showed opiates, tricyclic antidepressants, benzodiazepine and marijuana. 04/21. Patient seen and examined complaining of back pain. 04/22. Patient seen and examined. States back pain has improved. Patient keen to go home. Psych eval the patient, cleared the patient for discharge PHYSICAL EXAMINATION: GENERAL: The patient is alert and oriented x3, not in any acute distress. Well developed, well nourished. HEENT: Pupils are round and equally reacting to light. EOMI. No scleral icterus. No conjunctival pallor. Normocephalic, atraumatic. No pharyngeal erythema. No thyromegaly. CARDIOVASCULAR: S1 and S2 present. No murmurs, rubs, or gallops. PULMONARY: Chest is clear to auscultation, no wheezing or crackles. ABDOMEN: Soft, nontender, nondistended, normoactive bowel sounds. No palpable organomegaly. MUSCULOSKELETAL: No joint swelling or deformity. EXTREMITIES: No cyanosis, clubbing, or pedal edema. NEUROLOGICAL: Gross neurological examination did not reveal any focal deficits. SKIN: No rashes. Dictation was produced using [employer] dictation software. please excuse any grammatical, word or spelling errors. Plan - Discharge Summary New Discharge Prescriptions: New QUEtiapine [SEROquel] 100 mg PO BID #60 tab Continue Omeprazole [PriLOSEC] 20 mg PO DAILY Aspirin EC [Ecotrin Low Dose] 81 mg PO DAILY Cetirizine HCl 10 mg PO DAILY Albuterol Inhaler [Ventolin Hfa Inhaler] 1 - 2 puff INHALATION RT-Q6H PRN PRN Reason: Shortness Of Breath Gabapentin 800 mg PO TID Diclofenac Sodium [Voltaren] 75 mg PO BID Acetaminophen Tab [Tylenol] 500 mg PO Q6H PRN PRN Reason: Pain Diclofenac Sodium Gel [Voltaren 1% Gel] 1 applic TOPICAL QID PRN PRN Reason: Pain Sertraline [Zoloft] 100 mg PO DAILY methocarbamoL 750 mg PO QID Cholecalciferol [Vitamin D3 (125 Mcg = 5000 Iu)] 125 mcg PO DAILY diazePAM [Valium] 5 mg PO BID Lidocaine 4% Patch 3 patch TOPICAL DAILY Discontinued QUEtiapine XR [SEROquel XR] 200 mg PO HS Sertraline [Zoloft] 50 mg PO DAILY Discharge Medication List Aspirin EC [Ecotrin Low Dose] 81 mg PO DAILY 05/23/18 [History] Omeprazole [PriLOSEC] 20 mg PO DAILY 05/23/18 [History] Cetirizine HCl 10 mg PO DAILY 04/14/19 [History] Acetaminophen Tab [Tylenol] 500 mg PO Q6H PRN 04/19/24 [History] Albuterol Inhaler [Ventolin Hfa Inhaler] 1 - 2 puff INHALATION RT-Q6H PRN 04/19/24 [History] Cholecalciferol [Vitamin D3 (125 Mcg = 5000 Iu)] 125 mcg PO DAILY 04/19/24 [History] Diclofenac Sodium Gel [Voltaren 1% Gel] 1 applic TOPICAL QID PRN 04/19/24 [History] Diclofenac Sodium [Voltaren] 75 mg PO BID 04/19/24 [History] Gabapentin 800 mg PO TID 04/19/24 [History] Lidocaine 4% Patch 3 patch TOPICAL DAILY 04/19/24 [History] Sertraline [Zoloft] 100 mg PO DAILY 04/19/24 [History] diazePAM [Valium] 5 mg PO BID 04/19/24 [History] methocarbamoL 750 mg PO QID 04/19/24 [History] QUEtiapine [SEROquel] 100 mg PO BID #60 tab 04/22/24 [Rx] Follow up Appointment(s)/Referral(s): Tarun Abebe DO [Doctor of Osteopathic Medicine] - As Needed Pritesh Yarbrough MD [Primary Care Provider] - 1-2 days Patient Instructions/Handouts: Quetiapine (By mouth), Vertebral Compression Fracture (DC), Suicide Prevention (DC), Transverse Process Fracture (DC) Discharge/Stand Alone Forms: [facility] Shelters, Community Resources Discharge Disposition: HOME SELF-CARE
== END 2024-04-22 18:08 | disposition home or self-care (01) ==
LOC: EC 19:51 → 4SSUR 04-19 03:31 → 5NMEDONC 04-19 17:17 → 3SCARD 04-19 19:42 → 5NMEDONC 04-19 19:56
PROVIDERS: ADMIT Internal Medicine; ATTEND Internal Medicine
DX: R45.851 Suicidal ideations (principal); M84.48XA Pathological fracture, other site, initial encounter for fracture; M51.26 Other intervertebral disc displacement, lumbar region; M41.86 Other forms of scoliosis, lumbar region; M47.26 Other spondylosis with radiculopathy, lumbar region; M48.061 Spinal stenosis, lumbar region without neurogenic claudication; G89.29 Other chronic pain; M19.90 Unspecified osteoarthritis, unspecified site; K21.9 Gastro-esophageal reflux disease without esophagitis; M79.7 Fibromyalgia; G62.9 Polyneuropathy, unspecified; F41.0 Panic disorder [episodic paroxysmal anxiety]; F43.10 Post-traumatic stress disorder, unspecified; F17.200 Nicotine dependence, unspecified, uncomplicated; F31.9 Bipolar disorder, unspecified; Z90.710 Acquired absence of both cervix and uterus; Z79.899 Other long term (current) drug therapy; Z79.82 Long term (current) use of aspirin; Z79.1 Long term (current) use of non-steroidal anti-inflammatories (NSAID); Z59.00 Homelessness unspecified
CPT/HCPCS: 96366 ×4; 96372 ×4; 96376; 82075; 96365; 96367; 96374; 99285; 36415; 93005; 80053 ×2; 83735; 84100; 84484; 85025 ×2; 85610; 85730; 80306; 71046; 72131; 70450; 72148; G0378 ×5; J2270 ×5; J2405 ×2; J1650 ×2; J1885 ×2

== ENCOUNTER 2024-05-20 12:28 | Emergency (ER) | payer OTHER ==
[2024-05-20] MEDS ORDERED: MORPHINE SULFATE 4 MG/ML SYRINGE ONE (13:50)
[2024-05-20] MEDS ORDERED: methylPREDNISolone SOD SUCCI 125 MG/2 ML VIAL ONE (13:50)
[2024-05-20] MEDS ORDERED: KETOROLAC 15 MG/ML 1 ML VIAL ONE (13:50)
== END 2024-05-20 14:33 | disposition home or self-care (01) ==
LOC: EC 12:28
CPT/HCPCS: 96374; 96375; 99282

== ENCOUNTER 2024-08-08 10:32 | Emergency (ER) | payer MEDICARE, OTHER ==
[2024-08-08 10:37] VITALS: PULSE 66; RESP 16; TEMP 98.7
--- NOTE | 2024-08-08 11:27 | ED ---
Recheck HPI - General Chief Complaint: Recheck/Abnormal Lab/Rx Stated Complaint: med refill Time Seen by Provider: 08/08/24 10:45 Source: patient, RN notes reviewed Mode of arrival: wheelchair Limitations: no limitations - History of Present Illness Initial Comments: 64-year-old female presents emergency department with chief complaint of chronic pain. Patient states that she needs additional pain meds she states that she also needs refills of all of her medications because she decided that she does not want to go back to her primary care physician. Patient states that she has seen Dr. Sher seen in the past but states that she does not want to see him either. Patient denies any new injuries she complains of chronic back pain. Patient denies being suicidal or homicidal she states she is homeless. - Related Data Home Medications Medication Instructions Recorded Confirmed Aspirin EC [Ecotrin Low Dose] 81 mg PO DAILY 05/23/18 04/19/24 Omeprazole [PriLOSEC] 20 mg PO DAILY 05/23/18 04/19/24 Cetirizine HCl 10 mg PO DAILY 04/14/19 04/19/24 Acetaminophen Tab [Tylenol] 500 mg PO Q6H PRN 04/19/24 04/19/24 Albuterol Inhaler [Ventolin Hfa 1 - 2 puff INHALATION RT-Q6H PRN 04/19/24 04/19/24 Inhaler] Cholecalciferol [Vitamin D3 (125 125 mcg PO DAILY 04/19/24 04/19/24 Mcg = 5000 Iu)] Diclofenac Sodium Gel [Voltaren 1% 1 applic TOPICAL QID PRN 04/19/24 04/19/24 Gel] Diclofenac Sodium [Voltaren] 75 mg PO BID 04/19/24 04/19/24 Gabapentin 800 mg PO TID 04/19/24 04/19/24 Lidocaine 4% Patch 3 patch TOPICAL DAILY 04/19/24 04/19/24 Sertraline [Zoloft] 100 mg PO DAILY 04/19/24 04/19/24 diazePAM [Valium] 5 mg PO BID 04/19/24 04/19/24 methocarbamoL 750 mg PO QID 04/19/24 04/19/24 Previous Rx's Medication Instructions Recorded QUEtiapine [SEROquel] 100 mg PO BID #60 tab 04/22/24 Allergies Allergy/AdvReac Type Severity Reaction Status Date / Time amoxicillin Allergy Rash/Hives Verified 08/08/24 10:36 bee venom protein (honey bee) Allergy Anaphylaxis Verified 08/08/24 10:36 Penicillins Allergy Rash/Hives Verified 08/08/24 10:36 Review of Systems ROS Statement: Those systems with pertinent positive or pertinent negative responses have been documented in the HPI. ROS Other: All systems not noted in ROS Statement are negative. Past Medical History Past Medical History: GERD/Reflux, Osteoarthritis (OA), Pneumonia, Syncope Additional Past Medical History / Comment(s): Hypotension, syncopal episodes, severe facial neuropathy, neuropathy bilateral legs/feet, mid to low back pain with right sided sciatica, scoliosis, R foot neuroma, trigger fingers, bells palsy, shingles History of Any Multi-Drug Resistant Organisms: MRSA Date of last positivie culture/infection: 12/23/18 MDRO Source:: MRSA Right leg Past Surgical History: Hysterectomy, Tubal Ligation Additional Past Surgical History / Comment(s): left ankle fracture with surgical repair-pt unsure if any hardware, 6 foot surgeries- bunionectomies and R foot neuroma removals Past Anesthesia/Blood Transfusion Reactions: No Reported Reaction, Motion Sickness Past Psychological History: Anxiety, Depression, Panic Disorder, PTSD Smoking Status: Current every day smoker Past Alcohol Use History: None Reported Past Drug Use History: Marijuana - Past Family History Father History Unknown: Yes Additional Family Medical History / Comment(s): Father when pt was 4 yrs old. Mother Additional Family Medical History / Comment(s): Mother is . She had neuropathy and headaches. General Exam Limitations: no limitations General appearance: alert, in no apparent distress Head exam: Present: atraumatic, normocephalic, normal inspection Respiratory exam: Present: normal lung sounds bilaterally. Absent: respiratory distress, wheezes, rales, rhonchi, stridor Cardiovascular Exam: Present: regular rate, normal rhythm, normal heart sounds. Absent: systolic murmur, diastolic murmur, rubs, gallop, clicks GI/Abdominal exam: Present: soft, normal bowel sounds. Absent: distended, tenderness, guarding, rebound, rigid Extremities exam: Present: normal inspection, full ROM, normal capillary refill. Absent: tenderness, pedal edema, joint swelling, calf tenderness Neurological exam: Present: alert, oriented X3, CN II-XII intact Skin exam: Present: warm, dry, intact, normal color. Absent: rash Course Vital Signs 08/08/24 08/08/24 10:33 13:29 Temperature 98.7 F 98.7 F Pulse Rate 66 66 Respiratory 16 16 Rate Blood Pressure 124/72 122/81 O2 Sat by Pulse 96 97 Oximetry Medical Decision Making - Medical Decision Making Was pt. sent in by a medical professional or institution (, [facility], CONDITIONING YARD SUPERVISOR, urgent care, hospital, or longterm...) When possible be specific @ -No Did you speak to anyone other than the patient for history (EMS, parent, family, police, friend...)? What history was obtained from this source @ -No Did you review nursing and triage notes (agree or disagree)? Why? @ -I reviewed and agree with nursing and triage notes Were old charts reviewed (outside hosp., previous admission, EMS record, old EKG, old radiological studies, urgent care reports/EKG's, longterm records)? Report findings @ -No old charts were reviewed Differential Diagnosis (chest pain, altered mental status, abdominal pain women, abdominal pain men, vaginal bleeding, weakness, fever, dyspnea, syncope, headache, dizziness, GI bleed, back pain, seizure, CVA, palpatations, mental health, musculoskeletal)? @ -Chronic pain, medication refill, back pain EKG interpreted by me (3pts min.). @ -None X-rays interpreted by me (1pt min.). @ -None done CT interpreted by me (1pt min.). @ -None done U/S interpreted by me (1pt. min.). @ -None done What testing was considered but not performed or refused? (CT, X-rays, U/S, labs)? Why? @ -None What meds were considered but not given or refused? Why? @ -None Did you discuss the management of the patient with other professionals (professionals i.e. PORTILLO Silva, CONDITIONING YARD SUPERVISOR, lab, RT, psych nurse, socially responsible investment adviser, electrolysis needle operator, teacher, recreation officer, nurse outreach case manager)? Give summary @ -No Was smoking cessation discussed for >3mins.? @ -No Was critical care preformed (if so, how long)? @ -No Were there social determinants of health that impacted care today? How? (Homelessness, low income, unemployed, alcoholism, drug addiction, transportation, low edu. Level, literacy, decrease access to med. care, care home, rehab)? @ -[Homelessness stating that she cannot follow-up with PCP because it is an [place] Was there de-escalation of care discussed even if they declined (Discuss DNR or withdrawal of care, Hospice)? DNR status @ -No What co-morbidities impacted this encounter? (DM, HTN, Smoking, COPD, CAD, Cancer, CVA, ARF, Chemo, Hep., AIDS, mental health diagnosis, sleep apnea, morbid obesity)? @ -None Was patient admitted / discharged? Hospital course, mention meds given and route, prescriptions, significant lab abnormalities, going to OR and other pertinent info. @ -Discharge patient presented for chronic pain patient was given Toradol she is advised that she needs to follow with PCP for all of her medications as she she has no acute symptoms and she still had medicines with her. Undiagnosed new problem with uncertain prognosis? @ -No Drug Therapy requiring intensive monitoring for toxicity (Heparin, Nitro, Insulin, Cardizem)? @ -No Were any procedures done? @ -No Diagnosis/symptom? @ -Chronic pain Acute, or Chronic, or Acute on Chronic? @ -Chronic Uncomplicated (without systemic symptoms) or Complicated (systemic symptoms)? @ -Uncomplicated Side effects of treatment? @ -No Exacerbation, Progression, or Severe Exacerbation? @ -No Poses a threat to life or bodily function? How? (Chest pain, USA, OR, pneumonia, PE, COPD, DKA, ARF, appy, cholecystitis, CVA, Diverticulitis, Homicidal, Suicidal, threat to staff... and all critical care pts) @ -No Disposition Clinical Impression: Chronic pain Disposition: HOME SELF-CARE Condition: Stable Additional Instructions: Please return to the Emergency Department if symptoms worsen or any other concerns. Is patient prescribed a controlled substance at d/c from ED?: No Referrals: None,Stated [Primary Care Provider] - 1-2 days Tarun Abebe DO [Doctor of Osteopathic Medicine] - 1-2 days Oren Rogers DO [Doctor of Osteopathic Medicine] - 1-2 days Time of Disposition: 11:26
[2024-08-08] MEDS: KETOROLAC 15 MG/ML 1 ML VIAL IM STA (13:03)
[2024-08-08 13:30] VITALS: BP 122/81
== END 2024-08-08 15:36 | disposition home or self-care (01) ==
LOC: EC 10:32
DX: G89.29 Other chronic pain (principal); M54.9 Dorsalgia, unspecified; F17.200 Nicotine dependence, unspecified, uncomplicated; Z88.0 Allergy status to penicillin; Z91.030 Bee allergy status
CPT/HCPCS: 99281; 96372; J1885

== ENCOUNTER 2024-08-18 05:46 | Emergency (ER) | payer MEDICARE, OTHER ==
--- NOTE | 2024-08-18 06:14 | ED ---
Psych HPI - General Chief Complaint: Psychiatric Symptoms Stated Complaint: Anxiety Time Seen by Provider: 08/18/24 05:57 Source: patient, EMS, RN notes reviewed Mode of arrival: EMS Limitations: no limitations - History of Present Illness Initial Comments: 44-year-old female presents emerged part via EMS chief complaint of anxiety, panic attack. Patient has a history of anxiety. She states that she had a panic attack because something was yelling at her for stealing their keys. Patient states she is not suicidal homicidal she denies any physical mental and chronic back pain. Patient denies any illicit drug use no other complaints. - Related Data Home Medications Medication Instructions Recorded Confirmed Aspirin EC [Ecotrin Low Dose] 81 mg PO DAILY 05/23/18 04/19/24 Omeprazole [PriLOSEC] 20 mg PO DAILY 05/23/18 04/19/24 Cetirizine HCl 10 mg PO DAILY 04/14/19 04/19/24 Albuterol Inhaler [Ventolin Hfa 1 - 2 puff INHALATION RT-Q6H PRN 04/19/24 04/19/24 Inhaler] Cholecalciferol [Vitamin D3 (125 125 mcg PO DAILY 04/19/24 04/19/24 Mcg = 5000 Iu)] Diclofenac Sodium Gel [Voltaren 1% 1 applic TOPICAL QID PRN 04/19/24 04/19/24 Gel] Diclofenac Sodium [Voltaren] 75 mg PO BID 04/19/24 04/19/24 Gabapentin 800 mg PO TID 04/19/24 04/19/24 Lidocaine 4% Patch 3 patch TOPICAL DAILY 04/19/24 04/19/24 Sertraline [Zoloft] 100 mg PO DAILY 04/19/24 04/19/24 diazePAM [Valium] 5 mg PO BID 04/19/24 04/19/24 methocarbamoL 750 mg PO QID 04/19/24 04/19/24 Previous Rx's Medication Instructions Recorded QUEtiapine [SEROquel] 100 mg PO BID #60 tab 04/22/24 Acetaminophen Tab [Tylenol] 500 mg PO Q6H PRN #30 tab 08/18/24 Allergies Allergy/AdvReac Type Severity Reaction Status Date / Time amoxicillin Allergy Rash/Hives Verified 08/18/24 05:58 bee venom protein (honey bee) Allergy Anaphylaxis Verified 08/18/24 05:58 Penicillins Allergy Rash/Hives Verified 08/18/24 05:58 Review of Systems ROS Statement: Those systems with pertinent positive or pertinent negative responses have been documented in the HPI. ROS Other: All systems not noted in ROS Statement are negative. Past Medical History Past Medical History: GERD/Reflux, Osteoarthritis (OA), Pneumonia, Syncope Additional Past Medical History / Comment(s): Hypotension, syncopal episodes, severe facial neuropathy, neuropathy bilateral legs/feet, mid to low back pain with right sided sciatica, scoliosis, R foot neuroma, trigger fingers, bells palsy, shingles History of Any Multi-Drug Resistant Organisms: MRSA Date of last positivie culture/infection: 12/23/18 MDRO Source:: MRSA Right leg Past Surgical History: Hysterectomy, Tubal Ligation Additional Past Surgical History / Comment(s): left ankle fracture with surgical repair-pt unsure if any hardware, 6 foot surgeries- bunionectomies and R foot neuroma removals Past Anesthesia/Blood Transfusion Reactions: No Reported Reaction, Motion Sickness Past Psychological History: Anxiety, Bipolar, Depression, Panic Disorder, PTSD Smoking Status: Current every day smoker Past Alcohol Use History: None Reported Past Drug Use History: Marijuana - Past Family History Father History Unknown: Yes Additional Family Medical History / Comment(s): Father when pt was 4 yrs old. Mother Additional Family Medical History / Comment(s): Mother is . She had neuropathy and headaches. General Exam Limitations: no limitations General appearance: alert, in no apparent distress, anxious Head exam: Present: atraumatic, normocephalic, normal inspection Eye exam: Present: normal appearance, PERRL, EOMI. Absent: scleral icterus, conjunctival injection, periorbital swelling ENT exam: Present: normal exam, normal oropharynx, mucous membranes moist Neck exam: Present: normal inspection, full ROM. Absent: tenderness, meningismus, lymphadenopathy Respiratory exam: Present: normal lung sounds bilaterally. Absent: respiratory distress, wheezes, rales, rhonchi, stridor Cardiovascular Exam: Present: regular rate, normal rhythm, normal heart sounds. Absent: systolic murmur, diastolic murmur, rubs, gallop, clicks Neurological exam: Present: alert, oriented X3, CN II-XII intact Psychiatric exam: Present: anxious Skin exam: Present: warm, dry, intact, normal color. Absent: rash Course Vital Signs 08/18/24 08/18/24 05:47 06:14 Temperature 98.3 F Pulse Rate 95 Respiratory 24 Rate Blood Pressure 149/92 135/91 O2 Sat by Pulse 98 Oximetry Medical Decision Making - Medical Decision Making Was pt. sent in by a medical professional or institution ([facility]O Silva, SENIOR RECRUITER, urgent care, hospital, or prison...) When possible be specific @ -No Did you speak to anyone other than the patient for history (EMS, parent, family, police, friend...)? What history was obtained from this source @ -No Did you review nursing and triage notes (agree or disagree)? Why? @ -I reviewed and agree with nursing and triage notes Were old charts reviewed (outside hosp., previous admission, EMS record, old E KG, old radiological studies, urgent care reports/EKG's, prison records)? Report findings @ -No old charts were reviewed Differential Diagnosis (chest pain, altered mental status, abdominal pain women, abdominal pain men, vaginal bleeding, weakness, fever, dyspnea, syncope, headache, dizziness, GI bleed, back pain, seizure, CVA, palpatations, mental health, musculoskeletal)? @ -Anxiety, adjustment reaction, panic attack EKG interpreted by me (3pts min.). @ -None X-rays interpreted by me (1pt min.). @ -None done CT interpreted by me (1pt min.). @ -None done U/S interpreted by me (1pt. min.). @ -None done What testing was considered but not performed or refused? (CT, X-rays, U/S, labs)? Why? @ -None What meds were considered but not given or refused? Why? @ -None Did you discuss the management of the patient with other professionals (professionals i.e. PORTILLO Silva, SENIOR RECRUITER, lab, RT, psych nurse, social work instructor, program checker, teacher, special loan officer, case packer and sealer)? Give summary @ -No Was smoking cessation discussed for >3mins.? @ -No Was critical care preformed (if so, how long)? @ -No Were there social determinants of health that impacted care today? How? (Homelessness, low income, unemployed, alcoholism, drug addiction, transportation, low edu. Level, literacy, decrease access to med. care, care home, rehab)? @ -No Was there de-escalation of care discussed even if they declined (Discuss DNR or withdrawal of care, Hospice)? DNR status @ -No What co-morbidities impacted this encounter? (DM, HTN, Smoking, COPD, CAD, Cancer, CVA, ARF, Chemo, Hep., AIDS, mental health diagnosis, sleep apnea, morbid obesity)? @ -Pain, anxiety Was patient admitted / discharged? Hospital course, mention meds given and route, prescriptions, significant lab abnormalities, going to OR and other pertinent info. @ -Discharge patient presented for anxiety, panic attack. Patient was given Xanax. Patient denies being suicidal homicidal does not want to speak to psychiatric services. Patient has chronic pain and drug use in which she was requesting multiplications advised that she needs to follow-up with her primary care physician for these meds. She is return for any worsening changes symptoms otherwise to follow-up with her primary care physician for medications. Undiagnosed new problem with uncertain prognosis? @ -No Drug Therapy requiring intensive monitoring for toxicity (Heparin, Nitro, Insulin, Cardizem)? @ -No Were any procedures done? @ -No Diagnosis/symptom? @ -Anxiety Acute, or Chronic, or Acute on Chronic? @ -Acute Uncomplicated (without systemic symptoms) or Complicated (systemic symptoms)? @ -Uncomplicated Side effects of treatment? @ -No Exacerbation, Progression, or Severe Exacerbation? @ -No Poses a threat to life or bodily function? How? (Chest pain, USA, ID, pneumonia, PE, COPD, DKA, ARF, appy, cholecystitis, CVA, Diverticulitis, Homicidal, Suicidal, threat to staff... and all critical care pts) @ -No Disposition Clinical Impression: Acute anxiety Disposition: HOME SELF-CARE Condition: Stable Instructions (If sedation given, give patient instructions): Anxiety (ED) Additional Instructions: Please return to the Emergency Department if symptoms worsen or any other concerns. Prescriptions: Acetaminophen Tab [Tylenol] 500 mg PO Q6H PRN #30 tab PRN Reason: Pain Is patient prescribed a controlled substance at d/c from ED?: No Referrals: None,Stated [Primary Care Provider] - 1-2 days Time of Disposition: 06:14
[2024-08-18] MEDS: ALPRAZolam 0.5 MG TAB PO STA (06:17)
[2024-08-18] MEDS: ACETAMINOPHEN TAB 325 MG TAB PO STA (06:37)
[2024-08-18 06:52] VITALS: BP 110/90; PULSE 72; RESP 18; TEMP 98
== END 2024-08-18 06:52 | disposition home or self-care (01) ==
LOC: EC 05:46
DX: F41.9 Anxiety disorder, unspecified (principal); F17.200 Nicotine dependence, unspecified, uncomplicated; Z88.0 Allergy status to penicillin; Z91.030 Bee allergy status
CPT/HCPCS: 99283; 99284